=== PATIENT | male | born 1950 | race Caucasian/White ===

== ENCOUNTER → 2019-07-09 | Outpatient (CLI) | payer MEDICARE, BC ==
[~2019-07-09] MED LIST: ALBU2.5V5 NEB; ALUMINUM HYDROXIDE; ASPI-630 PO; ATOR40TA59 PO; BUDE10.2 IH; CARV25TA2 PO; DICL100G18 TP; FLUT9.9S NS; FURO40TA4 PO; GADOTERATE 7.5 MMOL/15ML VIAL. IVP ONE; HYDR-2868 PO; LOSA100T14 PO; MECL25TA3 PO; NICA30CA PO; OMEP20CA10 PO; PANT40TA6 PO; PARO40TA61 PO; POLY17PO29 PO; RIVA20TA2 PO; SCOP1PAT11 TP; SILO8CAP2 PO; SPIR50TA4 PO; TRAM50TA PO
--- NOTE | 2019-07-09 16:38 | KCIC ---
MRI Lumbar Spine without and with contrast History: Chronic low back pain, painful to walk, previous surgery Technique: Multiplanar, multi sequential pre and postcontrast MR imaging was performed of the lumbar spine. Comparison: None available Findings: There is some motion degradation. Lumbar vertebral body stature is overall maintained. There is negligible anterior spondylolisthesis L5-S1. There is fairly advanced degenerative disc disease L3-4 and L4-5, to a somewhat lesser degree at L2-3 and L5-S1, minimally L1-2. Conus terminates at L1. There is no nodular enhancement of the conus or cauda equina, no enhancement in the intervertebral disc spaces. There is mild L3-4 endplate edema greater on the right likely reactive/degenerative in etiology. T11-12: This level was not included on the axial images. There is facet degenerative change contributing to likely [id number]-cc-[id number] narrowing of the left neural foramen, minimal narrowing on the right. L1-L2: This level was not included on the axial images, neural foramina and spinal canal not significantly narrowed. L2-L3: There is minimal disc osteophyte complex and bulge. There is prominence of posterior epidural fat centrally. There is mild buckling of the ligamentum flavum and moderate facet degenerative change. Spinal canal is overall adequate. There is mild to moderate left and mild right neural foramina compromise by disc osteophyte complex and facets. L3-L4: There is prominence of posterior epidural fat centrally. There is moderate facet hypertrophic change and yukj-xe-chnauyvd buckling of the ligamentum flavum, somewhat greater on the left. There is disc osteophyte complex. There is mild to moderate narrowing of the far left lateral recess, mild attenuation of the thecal sac more centrally primarily from posterior epidural lipomatosis, minimal narrowing the far right lateral recess. There is fairly severe narrowing of left neural foramen primarily by disc osteophyte complex in combination with facet degenerative change, contact exiting left L3 nerve root extending to the proximal extraforaminal region. There is also fairly severe narrowing of the right neural foramen with contact exiting right L3 nerve root by facet and disc osteophyte complex. L4-L5: There is mild facet hypertrophic change and buckling of the ligamentum flavum. There is mild prominence of posterior epidural fat centrally. There is minimal broad disc osteophyte complex slightly indenting the ventral thecal sac without significant spinal stenosis, near descending L5 nerve roots without significant displacement. There is fairly severe right and moderate to severe left neural foramina compromise by disc osteophyte complex and common age with facet into change with contact exiting L4 nerve roots greater on the right. L5-S1: There is fairly severe right greater than left facet degenerative change. There is minimal buckling of the ligamentum flavum. There is minimal disc osteophyte complex, very shallow protrusion more eccentric to the right lateral recess and inferior right neural foramen. There is fairly severe narrowing of the right neural foramen with contact exiting right L5 nerve root, moderate to severe narrowing of the left neural foramen also with contact exiting left L5 nerve root. Impression: 1. There is degenerative disc disease greatest L3-4 and L4-5, to lesser degree at other levels. There is endplate edema at L3-4 likely reactive/degenerative in etiology. There is multilevel spondylosis. There is multilevel significant neural foramina compromise bilaterallyL3-4 through L5-S1 with contact exiting nerve roots at these levels. There is soap-rj-bchsocbf left and mild right lateral recess stenosis L3-4. 2. There is multilevel lumbar facet degenerative change, very mild grade 1 anterior spondylolisthesis at L5-S1. Electronically signed by: Steve Rangel MD (07/09/2019 4:35 PM) [id number]
== END | disposition home or self-care (01) ==
LOC: KCIC MRI 14:28
PROVIDERS: ATTEND Physician Assistant Medical
DX: M51.37 Other intervertebral disc degeneration, lumbosacral region (principal); M48.07 Spinal stenosis, lumbosacral region; M48.04 Spinal stenosis, thoracic region; M25.78 Osteophyte, vertebrae; M89.38 Hypertrophy of bone, other site; M47.817 Spondylosis without myelopathy or radiculopathy, lumbosacral region; G89.29 Other chronic pain; I10 Essential (primary) hypertension; J45.909 Unspecified asthma, uncomplicated; Z86.73 Personal history of transient ischemic attack (TIA), and cerebral infarction without residual deficits
CPT/HCPCS: 72158; 82565; A9575

== ENCOUNTER → 2019-07-19 | Outpatient (CLI) | payer MEDICARE, BC ==
[~2019-07-19] MED LIST changes: -GADOTERATE 7.5 MMOL/15ML VIAL. IVP ONE
--- NOTE | 2019-07-19 21:34 | PAIN ---
DATE OF SERVICE: 07/19/2019 INITIAL CONSULTATION FOR PAIN CLINIC CHIEF COMPLAINT: Low back and bilateral lower extremity pain. HISTORY OF PRESENT ILLNESS: This is a 68-year-old male who presents with history of pain in the low back and bilateral lower extremity for about 20 years or so, worse over the past 10 months. The patient did have a lumbar laminectomy about 20 years ago, which was helpful for several years. The pain is returning now in the low back and legs, mostly in the posterior gluteus, posterolateral thigh, lateral anterior thigh and knees as well. The patient reports it is worse with walking, standing, changing positions, better with sitting or lying down, but at night does disturb him from sleep at least 6 times. The patient reports it does affect his bowel and bladder control, but does not have any incontinence. He has some increased frequency when the pain is at its worst. The patient reports it does affect his ability to walk with significant fatigability, especially in the right leg compared to the left. The patient reports he has taking ibuprofen, which has not been decreasing the pain significantly. He has had chiropractic treatment as well as exercise and physical therapy in the past, but nothing recently. He is still doing exercises, trying to do that every day as well as walking and some trigger point injections, which none of these were helpful for very long. The patient reports no loss of motor function, but significant fatigability of the lower extremities, especially on the right leg greater than the left with ambulation. The patient rates his disability from 0-10, 10 being the worst, as 10 with family and home responsibilities, recreation and occupation; 6 with social activity, 9 with sexual behavior, 9 with life support activities and 5 with self-care activities. The patient did have MRI scan of the lumbar spine dated 07/09/2019 showing degenerative disk disease, greatest at L3-L4 and L4-L5, lesser degree at the levels with multilevel spondylosis, significant neural foraminal compromise bilaterally at L3-L4 through L5-S1 with contact at exiting nerve roots at these levels with mild to moderate left and mild right lateral recess stenosis L3-L4, multilevel lumbar facet degenerative change and anterolisthesis very mild at L5-S1. PAST MEDICAL HISTORY: Significant for hearing loss, hyperkalemia, headaches, gastroesophageal reflux, vertigo, arthritis, benign prostatic hypertrophy. PAST SURGICAL HISTORY: Include lumbar laminectomy 20 years ago, has a TURP procedure. CURRENT MEDICATIONS: Include Lipitor, Coreg, losartan, nicardipine, paroxetine, omeprazole, pantoprazole, Aldactone, carvedilol, losartan, Symbicort inhaler, aluminum hydroxide and Xarelto. ALLERGIES: THE PATIENT HAS NO KNOWN DRUG ALLERGIES, BUT HE DOES HAVE A LATEX ALLERGY. FAMILY HISTORY: Significant for no major medical problems or conditions he is aware of. SOCIAL HISTORY: The patient does not drink alcohol, does not smoke. Denies any illegal, illicit or recreational drugs. The patient is and lives with his spouse, lives locally in [place], [place]. Reports he is currently retired. REVIEW OF SYSTEMS: The patient's review of systems is positive for those items mentioned in history of present illness. All systems reviewed and otherwise negative. It is complete, full and well documented on the patient's chart. PHYSICAL EXAMINATION: VITAL SIGNS: The patient's blood pressure is 137/73, pulse 67, respirations 16, temperature 97.9 degrees Fahrenheit, height 6 feet, weight is 291 pounds. GENERAL: The patient is awake, alert, oriented, appropriate, very pleasant demeanor. HEENT: Shows normocephalic, atraumatic. Extraocular movements are intact and symmetrical. Oral cavity: Mucous membranes moist and pink. Dentition is intact. NECK: Shows anterior throat supple without palpable lymphadenopathy noted. Swallow reflex symmetrical. CHEST: Shows normal on inspection. Breath sounds are clear to auscultation bilaterally. HEART: Shows S1, S2 clear. No murmurs auscultated. ABDOMEN: Soft, nontender, nondistended, obese. No palpable organomegaly is noted. No rebound or guarding demonstrated. BACK: Shows spine grossly midline, normal-appearing thoracic kyphosis and minor flattening of lumbar lordotic curvature. Lumbar paraspinous muscle shows symmetrical on inspection, with palpation shows some moderate tenderness diffusely bilaterally, but only diffusely without significant radiation. The patient shows good rotational motion of lumbar spine, both laterally greater than 10 degrees right and left as well as extension greater than 10 degrees, forward flexion 45 degrees without significant pain reported. EXTREMITIES: Lower extremities show deep tendon reflexes 1+ in the patellar and tendo calcaneus tendons. Motor exam is strong with 5/5 dorsiflexion, extension, quadriceps and hamstring flexion and symmetrical. Peripheral pulses are 1+ posterior tibia. No peripheral edema is noted bilaterally. Gaenslen's and Rahat's maneuvers are negative bilaterally. Straight leg raise noted to be negative bilaterally as well. The patient is able to stand, stand on his toes without difficulty or loss of balance, walks with a slight shuffling gait, does not appear to favor the right or left lower extremity significantly; however, not using any assistive devices to ambulate. SKIN: Shows warm and dry, good turgor. No edema. No sores, rashes or bruising. IMPRESSION: 1. This is a 68-year-old male with long history of low back pain, worse over the past 10-11 months in the low back and bilateral lower extremities. 2. MRI scan of lumbar spine as noted. 3. Hypertension. 4. Arthritis. PLAN: Options were discussed with the patient including conservative medical managements, physical therapies and interventional techniques and he would like to pursue interventional techniques. We discussed a lumbar epidural steroid injection using description as well as anatomical models to describe the procedure. We first check with his prescribing practitioner for clearance to hold his Xarelto for 3 days prior to potential lumbar epidural steroid injection. The patient will keep taking the medication until we hear back from his primary care provider, and if deemed safe to hold the Xarelto, we will have him do that to return for lumbar epidural steroid injection. BIANCA DOAN MD DR: MARITA/cristian JOB#: [id number] / [id number] ROBBY Sainz
== END | disposition home or self-care (01) ==
LOC: PNCL 07:53 → EDUNIT# 08:20
PROVIDERS: ATTEND Anesthesiology
DX: M54.5 Low back pain (principal); M79.605 Pain in left leg; M79.604 Pain in right leg; H91.90 Unspecified hearing loss, unspecified ear; E87.5 Hyperkalemia; K21.9 Gastro-esophageal reflux disease without esophagitis; M19.90 Unspecified osteoarthritis, unspecified site; N40.0 Benign prostatic hyperplasia without lower urinary tract symptoms; Z90.89 Acquired absence of other organs; Z79.899 Other long term (current) drug therapy; Z79.891 Long term (current) use of opiate analgesic; Z79.1 Long term (current) use of non-steroidal anti-inflammatories (NSAID); Z91.040 Latex allergy status
CPT/HCPCS: G0463

== ENCOUNTER → 2019-08-01 | Outpatient (CLI) | payer MEDICARE, BC ==
[~2019-08-01] MED LIST changes: +IOHEXOL 180 MG/ML 10 ML VIAL. ONE; +methylPREDNISolone ACETATE 40 MG/ML VIAL. ONE; +methylPREDNISolone ACETATE 80 MG/ML VIAL. ONE
--- NOTE | 2019-08-01 08:53 | PAIN ---
DATE OF SERVICE: 08/01/2019 PROGRESS NOTE FOR PAIN CLINIC DIAGNOSES: Lumbar radiculopathy with lumbar degenerative disk disease and lumbar spinal stenosis and post-lumbar laminectomy syndrome. HISTORY OF PRESENT ILLNESS: The patient is a 68-year-old male who returns for followup status post initial evaluation and clearance to hold his Eliquis. He has been off his Xarelto now for 3 days, returns reporting still significant pain in the low back, bilateral lower extremities, posterior gluteus, posterolateral thigh, lateral anterior thigh, medial thigh. The patient reports the pain is aching, dull, sharp, tight, cramping and spasms on and off in intensity, rated as 6 on a scale of 10 at its worst, 6 on average and a 3 at its least and is a 6 today. The patient reports no new motor or sensory deficits, no new bowel or bladder incontinence, still wakes him from sleep at night about every 3 hours. The patient reports no new changes or other deficits. PHYSICAL EXAMINATION: VITAL SIGNS: The patient's blood pressure is 106/54, pulse 68, respirations 18, temperature 97.7 degrees Fahrenheit, height 6 feet, weight is 279 pounds. GENERAL: The patient is awake, alert, oriented, appropriate, very pleasant demeanor. HEENT: Shows normocephalic, atraumatic. Extraocular movements are intact and symmetrical. Oral cavity: Mucous membranes moist and pink. Dentition is intact. NECK: Shows anterior throat supple without palpable lymphadenopathy noted. Swallow reflex symmetrical. CHEST: Shows normal on inspection. Breath sounds clear to auscultation bilaterally. HEART: Shows S1, S2 clear. No murmurs auscultated. ABDOMEN: Soft, nontender, nondistended. No palpable organomegaly is noted. No rebound or guarding demonstrated. BACK: Shows spine grossly in the midline. Normal appearing thoracic kyphosis and lumbar lordotic curvature. Lumbar paraspinous muscle shows symmetrical on inspection, on palpation shows some moderate tenderness diffusely bilaterally going diffusely without radiation. The patient shows good rotational motion of lumbar spine, both laterally as well as extension and flexion without difficulty. EXTREMITIES: The patient's lower extremities show deep tendon reflexes 1+ in the patellar and tendo calcaneus tendons. Motor exam is 5/5 with dorsiflexion, extension, quadriceps and hamstring flexion symmetrical. Peripheral pulses are 1+ posterior tibial. No peripheral edema is noted bilaterally. Options were discussed with the patient. The patient's old chart was reviewed as his current medication regimen updated. Current review of systems updated today as well and we will proceed with a lumbar epidural steroid injection today with fluoroscopic guidance. Risks were again discussed including, but not limited to bleeding, infection, possibility of epidural hematoma, subsequent neurologic compromise, dural puncture, headaches, spinal cord and/or nerve damage, side effects of steroid medication and poor results regarding pain control. The patient understands and wished to proceed. The patient will return to clinic in approximately 2 weeks for followup. He was counseled on return appointment, activity level and side effects to be aware of. DIAGNOSES: Lumbar radiculopathy with lumbar degenerative disk disease and lumbar spinal stenosis with post-lumbar laminectomy syndrome. PROCEDURE: Lumbar epidural steroid injection, translaminar approach L4-L5 level using C-arm fluoroscopic guidance under sterile prep and drape using local anesthetic. MEDICATION INJECTED: The patient received a total of 120 mg Depo-Medrol plus 10 mL of preservative-free normal saline and 2 mL of contrast. CONDITION AT DISCHARGE: Stable. The patient tolerated procedure well, had no complications. BIANCA DOAN MD DR: MARITA/cristian JOB#: [id number] / [id number]
== END ==
LOC: PNCL 07:47
PROVIDERS: ATTEND Anesthesiology
DX: M51.16 Intervertebral disc disorders with radiculopathy, lumbar region (principal); M48.061 Spinal stenosis, lumbar region without neurogenic claudication; M96.1 Postlaminectomy syndrome, not elsewhere classified
CPT/HCPCS: 62323; J1030; J1040; Q9965

== ENCOUNTER → 2019-09-19 | Outpatient (CLI) | payer MEDICARE, BC ==
[~2019-09-19] MED LIST changes: -IOHEXOL 180 MG/ML 10 ML VIAL. ONE; -methylPREDNISolone ACETATE 40 MG/ML VIAL. ONE; -methylPREDNISolone ACETATE 80 MG/ML VIAL. ONE
--- NOTE | 2019-09-19 12:11 | PAIN ---
DATE OF SERVICE: 09/19/2019 PROGRESS NOTE FOR PAIN MANAGEMENT DIAGNOSIS: Lumbar radiculopathy with lumbar degenerative disk disease, lumbar stenosis and post-lumbar laminectomy syndrome. HISTORY OF PRESENT ILLNESS: The patient is a 69-year-old male who returns for followup status post lumbar epidural steroid injection x 1. The patient reports about 80% improvement for about 3 weeks after the first injection with pain in the low back and the bilateral lower extremities. The patient reports it is mainly in the low back, now legs are doing much better. He is increasing his activity with greater distance walking, doing work activities, household activities, traveling with greater ease and comfort. Pain is beginning to return, however, in low back itself. The patient reports no new motor or sensory deficits, no new bowel or bladder incontinence. Describes the pain as a radiating pain is becoming more constant in the back, aching and tight, rates it 10 on a scale of 10 at its worst over the past week, 8 on average, 4 at its least and is an 8 today. The patient reports no new motor or sensory deficits. No bowel or bladder incontinence. It does awake him from sleep, but only about once every 7 hours only over the past few days. The patient has been maintained on his Xarelto; however, is not held prior to today's visit. PHYSICAL EXAMINATION: VITAL SIGNS: The patient's blood pressure 148/67, pulse 71, respirations 18, temperature 98.3 degrees Fahrenheit, height 6 feet, weight is 288 pounds. GENERAL: The patient is awake, alert, oriented, appropriate, very pleasant demeanor. HEENT: Shows normocephalic, atraumatic. Extraocular movements are intact and symmetrical. Oral cavity: Mucous membranes moist and pink. Dentition is intact. NECK: Shows anterior throat supple without palpable lymphadenopathy noted. Swallow reflex symmetrical. CHEST: Shows normal on inspection. Breath sounds are clear bilaterally. HEART: Shows S1, S2 clear. ABDOMEN: Obese, soft, nontender, nondistended. BACK: Shows spine grossly in the midline. Normal appearing thoracic kyphosis and lumbar lordotic curvature. Lumbar paraspinous muscle shows symmetrical on inspection, with palpation shows some mild tenderness diffusely in the low lumbar distribution, more on the right than the left, but without radiation. The patient has good rotational motion of lumbar spine, both laterally as well as extension and flexion without difficulty. EXTREMITIES: Lower extremities show deep tendon reflexes 1+ in patellar and tendo calcaneus tendons. Motor exam is strong with 5/5 dorsiflexion, extension, quadriceps and hamstring flexion and symmetrical. Peripheral pulses are 1+ posterior tibia. No peripheral edema is noted. Options were discussed with the patient. The patient's old chart was reviewed as his current medication regimen updated. Current review of systems updated today as well. We will have him hold his Xarelto as he has been cleared previously by his nondestructive tester for 3 days and return for lumbar epidural steroid injection #2 at that time. The patient will maintain with stretching and strength exercises in the meantime and will follow up as scheduled. BIANCA DOAN MD DR: MARITA/nts JOB#: [id number] / [id number]
== END | disposition home or self-care (01) ==
LOC: PNCL 09:33
PROVIDERS: ATTEND Anesthesiology
DX: M51.16 Intervertebral disc disorders with radiculopathy, lumbar region (principal); M48.061 Spinal stenosis, lumbar region without neurogenic claudication; M96.1 Postlaminectomy syndrome, not elsewhere classified
CPT/HCPCS: G0463

== ENCOUNTER → 2019-09-23 | Outpatient (CLI) | payer MEDICARE, BC ==
[~2019-09-23] MED LIST changes: +IOHEXOL 180 MG/ML 10 ML VIAL. ONE; +methylPREDNISolone ACETATE 40 MG/ML VIAL. ONE; +methylPREDNISolone ACETATE 80 MG/ML VIAL. ONE
--- NOTE | 2019-09-23 12:29 | PAIN ---
DATE OF SERVICE: 09/23/2019 PROGRESS NOTE FOR PAIN CLINIC DIAGNOSES: Lumbar radiculopathy with lumbar degenerative disk disease, lumbar spinal stenosis and lumbar post-laminectomy syndrome. HISTORY OF PRESENT ILLNESS: The patient is a 69-year-old male who returns for followup status post lumbar epidural steroid injection x 1. The patient has held his Xarelto now for the past 3 days. Reports still significant pain in the low back and into the bilateral lower extremities as it was previously. The patient reports it is a 9 on a scale of 10 at its worst over the past week, 6 on average, 2 at its least and is a 6 today. The patient reports it is burning, cramping, stabbing, tingling in the legs, aching in the back and tight in the back, constant, severe at times, on and off in intensity. The patient reports initially he was doing better with distance walking, doing household activities with greater ease and comfort, now the pain is returning. It awakens him from sleep occasionally at night, but not more frequently in every 6-7 hours. The patient reports no new motor or sensory deficits, no new bowel or bladder incontinence or other complaints. PHYSICAL EXAMINATION: VITAL SIGNS: The patient's blood pressure 142/95, pulse 79, respirations 16, temperature 98.2 degrees Fahrenheit. GENERAL: The patient is awake, alert, oriented, appropriate, very pleasant demeanor. HEENT: Shows normocephalic, atraumatic. Extraocular movements are intact and symmetrical. The patient is wearing eyeglasses. Oral cavity: Mucous membranes moist and pink. NECK: Shows anterior throat supple. CHEST: Shows normal on inspection. Breath sounds clear bilaterally. ABDOMEN: Soft, nontender, nondistended. HEART: Shows S1, S2 clear. BACK: Shows spine grossly in the midline. Well-healed surgical scar in the lumbar distribution. Lumbar paraspinous muscle shows symmetrical on inspection, with palpation shows some moderate tenderness diffusely bilaterally in the lower lumbar distribution only. EXTREMITIES: The patient's lower extremities show deep tendon reflexes 1+/4 in the patellar tendons. Motor exam is strong with 5/5 dorsiflexion, extension, quadriceps and hamstring flexion and symmetrical. Peripheral pulses are 1+ posterior tibia. No peripheral edema is noted bilaterally. Options were discussed with the patient. The patient's old chart was reviewed as his current medication regimen updated. Current review of systems updated today as well and we will proceed with second lumbar epidural steroid injection today with fluoroscopic guidance. Risks were again discussed including, but not limited to bleeding, infection, possibility of epidural hematoma, subsequent neurological compromise, dural puncture, headaches, spinal cord and/or nerve damage, side effects of steroid medication and poor results regarding pain control. The patient understands and wished to proceed. The patient will return to clinic in approximately 2 weeks for followup. He was counseled on return appointment, activity level and side effects to be aware of. DIAGNOSES: Lumbar radiculopathy with lumbar degenerative disk disease and lumbar spinal stenosis and post-lumbar laminectomy syndrome. PROCEDURE: Lumbar epidural steroid injection, translaminar approach at the L4-L5 level using C-arm fluoroscopic guidance under sterile prep and drape using local anesthetic. MEDICATION INJECTED: A total of 120 mg Depo-Medrol plus 10 mL of preservative-free normal saline and 2 mL of contrast. CONDITION AT DISCHARGE: Stable. The patient tolerated procedure well, had no complications. BIANCA DOAN MD DR: MARITA/cristian JOB#: [id number] / [id number]
== END ==
LOC: PNCL 09:38
PROVIDERS: ATTEND Anesthesiology
DX: M51.16 Intervertebral disc disorders with radiculopathy, lumbar region (principal); M48.061 Spinal stenosis, lumbar region without neurogenic claudication; M96.1 Postlaminectomy syndrome, not elsewhere classified
CPT/HCPCS: 62323; J1030; J1040; Q9965

== ENCOUNTER → 2019-10-14 | Outpatient (CLI) | payer MEDICARE, BC ==
[~2019-10-14] MED LIST changes: +OMEP-229 PO; -OMEP20CA10 PO
--- NOTE | 2019-10-14 10:45 | PAIN ---
DATE OF SERVICE: 10/14/2019 PROGRESS NOTE FOR PAIN CLINIC DIAGNOSES: Lumbar radiculopathy with lumbar degenerative disk disease, lumbar spinal stenosis and post-lumbar laminectomy syndrome. HISTORY OF PRESENT ILLNESS: The patient is a 69-year-old male who returns for followup status post lumbar epidural steroid injection x 2. The patient has been off his Xarelto now for 3 days. The patient reports still significant pain in the low back, but doing much better after the last injection about 30% overall from his injection on 09/23/2019. The patient reports the pain is somewhat returning, but still fairly well controlled. The patient reports no new motor or sensory deficits, no new bowel or bladder incontinence or other complaints. It is waking him from sleep again about every 5-6 hours. Initially, he was doing much better with walking, sleeping, work activities, household activities, traveling with greater ease and comfort. The patient rates the pain as a 9 on a scale of 10 at its worst, is a 5 on average, 2 at its least and is a 5 today. The patient reports it is tingling, cramping, aching, dull and tight in the low back, on and off in intensity, mainly staying in the back now without as much radiation to the lower extremities. PHYSICAL EXAMINATION: VITAL SIGNS: The patient's blood pressure is 173/100, pulse 76, respirations 16, temperature 98.1 degrees Fahrenheit, height 6 feet, weight is 285 pounds. GENERAL: The patient is awake, alert, oriented, appropriate, very pleasant demeanor. HEENT: Shows normocephalic, atraumatic. Extraocular movements are intact and symmetrical. Oral cavity: Mucous membranes moist and pink. Dentition is intact. NECK: Shows anterior throat supple without palpable lymphadenopathy noted. Swallow reflex symmetrical. CHEST: Shows normal on inspection. Breath sounds clear bilaterally. HEART: Shows S1, S2 clear. No murmurs auscultated. ABDOMEN: Obese, soft, nontender, nondistended. No palpable organomegaly is noted. BACK: Shows spine grossly in the midline. Lumbar paraspinous muscle shows symmetrical on inspection, also with well-healed surgical scar. Palpation shows some moderate tenderness diffusely in the middle and lower distribution of paraspinous muscles, but only diffusely without radiation. EXTREMITIES: Lower extremities show deep tendon reflexes at 1+ in the patellar and tendo-calcaneus tendons. Motor exam remains strong with 5/5 dorsiflexion, extension, quadriceps and hamstring flexion and are symmetrical. Peripheral pulses are 1+ in the posterior tibia. No peripheral edema is noted bilaterally. Options were discussed with the patient. The patient's old chart was reviewed as his current medication regimen updated. Current review of systems updated today as well. We will proceed with a third in the series of lumbar epidural steroid injection today with fluoroscopic guidance. Risks were again discussed including, but not limited to bleeding, infection, possibility of epidural hematoma, subsequent neurological compromise, dural puncture, headaches, spinal cord and/or nerve damage, side effects of steroid medication and poor results regarding pain control. The patient understands and wished to proceed. The patient will return to clinic in approximately 2 weeks for followup. He was counseled as to return appointment, activity level and side effects to be aware of. DIAGNOSES: Lumbar radiculopathy with lumbar degenerative disk disease, lumbar spinal stenosis and lumbar post-laminectomy syndrome. PROCEDURE: Lumbar epidural steroid injection, translaminar approach at L4-L5 level using C-arm fluoroscopic guidance under sterile prep and drape using local anesthetic. MEDICATION INJECTED: A total of 120 mg Depo-Medrol plus 10 mL of preservative-free normal saline and 2 mL of contrast. CONDITION AT DISCHARGE: Stable. The patient tolerated the procedure well, had no complications. BIANCA DOAN MD DR: MARITA/cristian JOB#: [id number] / [id number]
== END ==
LOC: PNCL 09:56
PROVIDERS: ATTEND Anesthesiology
DX: M51.16 Intervertebral disc disorders with radiculopathy, lumbar region (principal); M48.061 Spinal stenosis, lumbar region without neurogenic claudication; M96.1 Postlaminectomy syndrome, not elsewhere classified
CPT/HCPCS: 62323; J1030; J1040; Q9965

== ENCOUNTER → 2020-03-03 | Outpatient (CLI) | payer MEDICARE, BC ==
[~2020-03-03] MED LIST changes: -DICL100G18 TP; +DICL100G54 TP; -IOHEXOL 180 MG/ML 10 ML VIAL. ONE; +MECL-75 PO; -MECL25TA3 PO; -OMEP-229 PO; +OMEP20CA16 PO; -methylPREDNISolone ACETATE 40 MG/ML VIAL. ONE; -methylPREDNISolone ACETATE 80 MG/ML VIAL. ONE
--- NOTE | 2020-03-03 08:38 | PAIN ---
DATE OF SERVICE: 03/03/2020 PROGRESS NOTE FOR PAIN CLINIC DIAGNOSES: Lumbar radiculopathy with lumbar degenerative disk disease, lumbar spinal stenosis and lumbar post-laminectomy syndrome. HISTORY OF PRESENT ILLNESS: The patient is a 69-year-old male who returns for followup status post lumbar epidural steroid injection x 3. The patient did well, last seen 10/14/2019 with about 80% improvement overall. The patient reports he is still doing fairly well, but the pain is returning now in the low back and bilateral lower extremities, mostly in the posterior gluteus, posterior thighs, posterior calves, lateral thighs, medial thighs especially and across the low back. The patient reports it is sharp and shooting, stabbing, radiating in the lower extremities, on and off in intensity, worse with walking and standing, better with sitting, generally does not awaken him from sleep at night. The patient reports he was increasing distance walking, doing working activities, household activities with much greater ease and comfort for good 3 months after the last injection, the pain now returning in the low back and legs. The patient reports the pain is a 9 on a scale of 10 at all times over the past week average, worst and least and is a 9 today. PHYSICAL EXAMINATION: VITAL SIGNS: The patient's blood pressure is 155/86, pulse 81, respirations 18, temperature is 98.2 degrees Fahrenheit. Height is 6 feet 1 inch. Weight is 283 pounds. GENERAL: The patient is awake, alert, oriented, appropriate, very pleasant demeanor. HEENT: Shows normocephalic, atraumatic. Extraocular movements are intact and symmetrical. The patient wears eyeglasses. Oral cavity shows mucous membranes moist and pink. Dentition is intact. NECK: Shows anterior throat supple without palpable lymphadenopathy noted. Swallow reflex symmetrical. CHEST: Shows normal on inspection. Breath sounds are clear bilaterally. HEART: Shows S1 and S2 clear. No murmurs auscultated. ABDOMEN: Soft, nontender, nondistended. BACK: Shows spine grossly in midline. Normal appearing thoracic kyphosis and lumbar lordotic curvature. Lumbar paraspinous muscle shows symmetrical on inspection, on palpation shows some moderate tenderness diffusely bilaterally, but only diffusely without significant radiation. The patient has good rotational motion of the lumbar spine, both laterally as well as extension and flexion without difficulty. EXTREMITIES: Lower extremities showed deep tendon reflexes at 1+ in the patellar and tendo calcaneus tendons. Motor exam is strong with 5/5 dorsiflexion, extension, quadriceps and hamstring flexion symmetrical. Peripheral pulses are 1+ to posterior tibia. No peripheral edema is noted bilaterally. Options were discussed with the patient. The patient's old chart was reviewed as his current medication regimen updated. Current review of systems updated today as well and we will proceed with holding his Xarelto for 3 days prior to lumbar epidural steroid injection. The patient has had clearance previously to hold this from his primary physician and we will have him hold this once again for 3 days. Return after that time for a lumbar epidural steroid injection. In the meantime, the patient will continue with stretching and strengthening exercises, activity, walking and exercises and stretching as well as tolerated. BIANCA DOAN MD DR: MARITA/cristian JOB#: [id number] / [id number]
== END | disposition home or self-care (01) ==
LOC: PNCL 07:55
PROVIDERS: ATTEND Anesthesiology
DX: M51.16 Intervertebral disc disorders with radiculopathy, lumbar region (principal); M48.061 Spinal stenosis, lumbar region without neurogenic claudication; M96.1 Postlaminectomy syndrome, not elsewhere classified
CPT/HCPCS: G0463

== ENCOUNTER → 2020-03-06 | Outpatient (CLI) | payer MEDICARE, BC ==
[~2020-03-06] MED LIST changes: +IOHEXOL 180 MG/ML 10 ML VIAL. ONE; +methylPREDNISolone ACETATE 40 MG/ML VIAL. ONE; +methylPREDNISolone ACETATE 80 MG/ML VIAL. ONE
--- NOTE | 2020-03-06 08:48 | PAIN ---
DATE OF SERVICE: 03/06/2020 PROGRESS NOTE FOR PAIN CLINIC DIAGNOSES: Lumbar radiculopathy with lumbar degenerative disk disease, lumbar spinal stenosis and lumbar post-laminectomy syndrome. HISTORY OF PRESENT ILLNESS: The patient is a 69-year-old male who returns for followup status post evaluation and holding his Xarelto. The patient has been off this for 3 days now and would like to proceed with a lumbar epidural steroid injection. The patient reports still significant pain in the low back, bilateral lower extremities, mostly in the posterior lateral gluteus, lateral thigh, anterior thigh, medial thighs, worse with walking, standing, changing positions. The patient reports it is across the low back as well, radiating, becoming more severe with time and activity, better with sitting or lying down, generally does not awaken his from sleep at night. The patient reports it is sharp and tight in the low back radiating and shooting into the lower extremities with a stabbing quality. The patient reports it is a 9 on a scale of 10 at all times, worst, least and average over the past week and is a 9 today. The patient reports no new motor or sensory deficits, no new bowel or bladder incontinence. He is off his Xarelto now for 3 days. PHYSICAL EXAMINATION: VITAL SIGNS: The patient's blood pressure 155/87, pulse 71, respirations 18, temperature 98.5 degrees Fahrenheit, height is 6 feet, weight is 283 pounds. GENERAL: The patient is awake, alert, oriented, appropriate, very pleasant demeanor. HEENT: Shows normocephalic, atraumatic. Extraocular movements are intact and symmetrical. Oral cavity: Mucous membranes moist and pink. Dentition is intact. CHEST: Shows normal on inspection. Breath sounds clear to auscultation bilaterally. HEART: Shows S1, S2 clear. No murmurs auscultated. ABDOMEN: Obese, soft, nontender, nondistended. BACK: Shows spine grossly in midline. Lumbar paraspinous muscle shows symmetrical on inspection, with palpation shows some moderate tenderness diffusely in the middle and lower distribution of paraspinous muscles without radiation. The patient has good rotational motion of lumbar spine, both laterally as well as extension and flexion. EXTREMITIES: Lower extremities show deep tendon reflexes 1+ in the patellar and tendo calcaneus tendons. Motor exam is strong with 5/5 dorsiflexion, extension, quadriceps and hamstring flexion. Options were discussed with the patient. The patient's old chart was reviewed as his current medication regimen updated. Current review of systems updated today as well. We will proceed with a lumbar epidural steroid injection today with fluoroscopic guidance. Risks were again discussed including, but not limited to bleeding, infection, possibility of epidural hematoma, subsequent neurological compromise, dural puncture, headaches, spinal cord and/or nerve damage, side effects of steroid medication and poor results regarding pain control. The patient understands and wished to proceed. The patient will return to clinic in approximately 3 weeks for followup. He was counseled on return appointment, activity level and side effects to be aware of. The patient will restart his Xarelto tomorrow as instructed and the patient will return to clinic as scheduled. DIAGNOSES: Lumbar radiculopathy with lumbar degenerative disk disease, lumbar spinal stenosis and lumbar post-laminectomy syndrome. PROCEDURE: Lumbar epidural steroid injection, translaminar approach at the L4-L5 level using C-arm fluoroscopic guidance under sterile prep and drape using local anesthetic. MEDICATION INJECTED: A total of 120 mg Depo-Medrol plus 10 mL of preservative-free normal saline and 2 mL of contrast. CONDITION AT DISCHARGE: Stable. The patient tolerated the procedure well, had no complications. BIANCA DOAN MD DR: MARITA/cristian JOB#: [id number] / [id number]
== END | disposition home or self-care (01) ==
LOC: PNCL 07:34
PROVIDERS: ATTEND Anesthesiology
DX: M51.16 Intervertebral disc disorders with radiculopathy, lumbar region (principal); M48.061 Spinal stenosis, lumbar region without neurogenic claudication; M96.1 Postlaminectomy syndrome, not elsewhere classified; Z98.890 Other specified postprocedural states
CPT/HCPCS: 62323; J1030; J1040; Q9965

== ENCOUNTER → 2020-04-10 | Outpatient (CLI) | payer MEDICARE, BC ==
--- NOTE | 2020-04-10 11:54 | PAIN ---
DATE OF SERVICE: 04/10/2020 PROGRESS NOTE FOR PAIN CLINIC DIAGNOSES: Lumbar radiculopathy with lumbar degenerative disk disease, lumbar spinal stenosis and lumbar post-laminectomy syndrome. HISTORY OF PRESENT ILLNESS: The patient is a 69-year-old male who returns for followup status post lumbar epidural steroid injection x 1 on 03/06/2020, patient did very well with about a 70% improvement in the low back and bilateral lower extremity pain. The patient reports the pain is pretty much gone out of his legs now, but his back is still significantly painful, more on the right than the left, but present bilaterally across the low back, worse with activity, standing, walking, bending, initially was doing much better with doing walking distances, doing household activities, traveling with greater ease and comfort, sleeping better at night. The patient reports it still does not awaken him from sleep at night. The patient rates his pain over the past week is an 8 on a scale of 10 at its worst, 4 on average, 3 at its least and is a 4 today. The patient reports it is tingling and stabbing in the back, sharp and dull, sometimes shooting in the legs, but across the back mostly. The patient reports no new motor or sensory deficits, no bowel or bladder incontinence or other complaints. PHYSICAL EXAMINATION: VITAL SIGNS: The patient's blood pressure is 161/99, pulse 75, respirations 18, temperature 95.2 degrees Fahrenheit, height 6 feet, weight is 275 pounds. GENERAL: The patient is awake, alert, oriented, appropriate, very pleasant demeanor. HEENT: Shows normocephalic, atraumatic. Extraocular movements are intact and symmetrical. Oral cavity: Mucous membranes moist and pink. Dentition is intact. NECK: Shows anterior throat supple without palpable lymphadenopathy noted. Swallow reflex symmetrical. CHEST: Shows normal on inspection. Breath sounds are clear bilaterally. HEART: Shows S1, S2 clear. No murmurs auscultated. ABDOMEN: Soft, nontender, nondistended, obese. No palpable organomegaly is noted. BACK: Shows normal-appearing cervical lordotic curvature, slight increase in thoracic kyphosis and minor flattening of lumbar lordotic curvature. Lumbar paraspinous muscle shows symmetrical on inspection, on palpation shows some moderate tenderness diffusely bilaterally, but only diffusely without significant radiation throughout the upper, middle and lower distribution of paraspinous muscles. The patient has good rotational motion of lumbar spine, both laterally as well as extension and flexion without significant difficulty. EXTREMITIES: Lower extremities show deep tendon reflexes at 1+ in the patellar and tendo calcaneus tendons. Motor exam is strong with 5/5 dorsiflexion, extension, quadriceps and hamstring flexion symmetrical. Peripheral pulses are 1+ bilaterally. Options were discussed with the patient. The patient's old chart was reviewed as his current medication regimen updated. Current review of systems updated today as well. We will proceed with a second in a series of lumbar epidural steroid injection today with fluoroscopic guidance. Risks were again discussed including, but not limited to bleeding, infection, possibility of epidural hematoma, subsequent neurological compromise, dural puncture, headaches, spinal cord and/or nerve damage, side effects of steroid medication and poor results regarding pain control. The patient understands and wished to proceed. The patient will return to clinic in approximately 2 weeks for followup. He was counseled on return appointment, activity level and side effects to be aware of. DIAGNOSES: Lumbar radiculopathy with lumbar degenerative disk disease, lumbar spinal stenosis. PROCEDURE: Lumbar epidural steroid injection, translaminar approach L4-L5 level using C-arm fluoroscopic guidance under sterile prep and drape using local anesthetic. MEDICATION INJECTED: A total of 120 mg Depo-Medrol plus 10 mL preservative-free normal saline and 2 mL of contrast. CONDITION AT DISCHARGE: Stable. The patient tolerated the procedure well, had no complications. BIANCA DOAN MD DR: MARITA/cristian JOB#: [id number] / [id number]
== END ==
LOC: PNCL 07:56
PROVIDERS: ATTEND Anesthesiology
DX: M51.16 Intervertebral disc disorders with radiculopathy, lumbar region (principal); M48.061 Spinal stenosis, lumbar region without neurogenic claudication; M96.1 Postlaminectomy syndrome, not elsewhere classified
CPT/HCPCS: 62323; J1030; J1040; Q9965

== ENCOUNTER → 2020-05-04 | Outpatient (CLI) | payer MEDICARE, BC ==
--- NOTE | 2020-05-04 10:12 | PAIN ---
DATE OF SERVICE: 05/04/2020 PROGRESS NOTE FOR PAIN CLINIC DIAGNOSES: Lumbar radiculopathy with lumbar degenerative disk disease, lumbar spinal stenosis, and lumbar post-laminectomy syndrome. HISTORY OF PRESENT ILLNESS: The patient is a 69-year-old male who returns for followup status post lumbar epidural steroid injections x 2. The patient reports about 70% improvement, currently still unimproved. The patient reports his pain can be as high as a 9 on a scale of 10 at its worst over the past week, average is a 4 and at its least is a 4, it is a 4 today. The patient reports tingling and stabbing in the low back with some sharp pain also alternating with tight shooting pain radiating to the lower extremities, worse in the back itself. The patient reports no new motor or sensory deficits, no new bowel or bladder incontinence. Reports it generally does not awaken him from sleep at night, increases activity with greater distance walking with greater ease and comfort and is pleased with this. The patient reports the shot seem to be lasting longer on this series than previously. The patient reports no new motor or sensory deficits, no bowel or bladder incontinence or other complaints. PHYSICAL EXAMINATION: VITAL SIGNS: The patient's blood pressure 167/92, pulse 78, respirations 18, temperature 97.3 degrees Fahrenheit, height 6 feet, and weight is 276 pounds. GENERAL: The patient is awake, alert, oriented, appropriate, very pleasant demeanor. HEENT: Shows normocephalic, atraumatic. Extraocular movements are intact and symmetrical. Oral cavity: Mucous membranes moist and pink. Dentition is intact. NECK: Shows anterior throat supple without palpable lymphadenopathy noted. Swallow reflex symmetrical. CHEST: Shows normal on inspection. Breath sounds are clear bilaterally. HEART: Shows S1, S2 clear. No murmurs auscultated. ABDOMEN: Soft, nontender, nondistended. BACK: Shows spine grossly in the midline, slight exaggerated thoracic kyphosis and minor flattening of lumbar lordotic curvature with well-healed surgical scar noted. Lumbar paraspinous muscle shows symmetrical on inspection, with palpation shows some moderate tenderness diffusely, but only in the low lumbar distribution bilaterally without significant radiation, more on the right than the left. EXTREMITIES: Lower extremities show deep tendon reflexes 1+ in the patellar and tendo calcaneus tendons. Motor exam approximately 5/5 with dorsiflexion, extension, quadriceps and hamstring flexion symmetrical. Peripheral pulses are 1+. No peripheral edema bilaterally. Options were discussed with the patient. The patient's old chart was reviewed as his current medication regimen updated. Current review of systems updated today as well. We will proceed with a lumbar epidural steroid injection today, third in the series with fluoroscopic guidance. Risks were again discussed including, but not limited to bleeding, infection, possibility of epidural hematoma, subsequent neurological compromise, dural puncture, headaches, spinal cord and/or nerve damage, side effects of steroid medication and poor results regarding pain control. The patient understands and wished to proceed. The patient will return to clinic in approximately 2 weeks for followup. She was counseled on return appointment, activity level, and side effects to be aware of. DIAGNOSES: Lumbar radiculopathy with lumbar degenerative disk disease, lumbar spinal stenosis, and lumbar post-laminectomy syndrome. PROCEDURE: Lumbar epidural steroid injection, translaminar approach at the L4-5 level using C-arm fluoroscopic guidance under sterile prep and drape using local anesthetic. MEDICATION INJECTED: A total of 120 mg Depo-Medrol plus 10 mL of preservative-free normal saline and 2 mL of contrast. CONDITION AT DISCHARGE: Stable. The patient tolerated procedure well, had no complications. BIANCA DOAN MD DR: MARITA/cristian JOB#: [id number] / [id number]
== END ==
LOC: PNCL 08:27
PROVIDERS: ATTEND Anesthesiology
DX: M51.16 Intervertebral disc disorders with radiculopathy, lumbar region (principal); M48.061 Spinal stenosis, lumbar region without neurogenic claudication; M96.1 Postlaminectomy syndrome, not elsewhere classified
CPT/HCPCS: 62323; J1030; J1040; Q9965

== ENCOUNTER → 2020-07-24 | Outpatient (CLI) | payer MEDICARE, BC ==
[~2020-07-24] MED LIST changes: +BUPIVACAINE MPF 0.25% 10 ML VIAL. ONE
--- NOTE | 2020-07-24 09:03 | PDOC ---
Progress Note - Pain Clinic Date of Service: DOS: DATE: 07/24/20 TIME: 08:58 Diagnosis: Dx: Lumbar radiculopathy with lumbar degenerative disc disease lumbar spinal stenosis and spondylosis Bilateral knee joint pain with osteoarthritis History or Present Illness: HPI: 69-year-old male returns follow-up status post lumbar epidural steroid injections x3 last seen May 04, 2020 patient ports doing very well about 80% improvement after the last injection his low back pain his chief complaint today however is bilateral knee pain patient has had osteoarthritis in the knees he reports for many years and is getting worse and then when he is walking favoring his knees it makes his back hurt more patient reports this is getting worse over the past few weeks patient rates the pain in the knees is a 10 on scale 10 is worse over the past week 9 on average 6 at its least is an 8 today patient was aching sharp tight stabbing worse with weightbearing better with sitting or laying down generalized not awaken her from sleep at night no new motor or sensory deficits no new bowel or bladder incontinence noted. Patient reports no specific loss of motor function but significant fatigability and pain with weightbearing on the bilateral knees right essentially equal to left. Physical Exam: VS: Blood pressure is 172/74 pulse is 87 respirations 16 temperature is 98.9 F height is 6 foot weight is 266 pounds PE: PHYSICAL EXAMINATION: GENERAL: The patient is awake, alert, oriented, appropriate, very pleasant demeanor HEENT: Shows normocephalic, atraumatic. Extraocular movements are intact and symmetrical. Oral cavity: Mucous membranes moist and pink. NECK: Shows anterior throat supple without palpable lymphadenopathy noted. Swallow reflex symmetrical. CHEST: Shows normal on inspection. Breath sounds are clear bilaterally, no rales rhonchi or wheezes auscultated. HEART: Shows S1, S2 clear. No murmurs auscultated. ABDOMEN: Soft, nontender, nondistended, obese. No palpable organomegaly is noted. No rebound or guarding demonstrated. BACK: Shows spine grossly in the midline. Normal-appearing cervical lordotic curvature. There is slightly increased thoracic kyphosis, some minor flattening of the lumbar lordotic curvature. Lumbar paraspinous muscles show symmetrical on inspection, on palpation shows some moderate tenderness diffusely throughout the upper, middle and lower distribution of the paraspinous muscles bilaterally and also into the lower thoracic paraspinous musculature, firm and tender, but without specific trigger points, without radiation of pain. The patient has good rotational motion of the lumbar spine, both laterally as well as extension and flexion without significant difficulty. No tenderness over the spinous processes, sacrum or sacroiliac regions. EXTREMITIES: Lower extremities show deep tendon reflexes 1+ in the patellar and tendo calcaneus tendons. Motor exam is 5 on a scale of 5 with right dorsiflexion, extension, quadriceps and hamstring flexion and 5/5 on the left. Peripheral pulses are 1+ posterior tibial. No peripheral edema is noted bilaterally. Lower extremities are warm and dry to touch, equal in color and appearance. Patient's knees show good hinge motion with passive and active motion without crepitus or ratcheting with weightbearing patient describes significant pain with putting all the weight on the right or left knee with flexion but without radiation of pain. SKIN: Shows warm and dry, good turgor. No edema. No sores, rashes or bruising throughout. Procedure: Procedure: Options were discussed with the patient. Patient will chart was reviewed his his current medication regimen updated current review of systems updated today as well. We will proceed with bilateral intra-articular knee joint injections today with fluoroscopic guidance risks were again discussed including but not limited to bleeding infection possibility of intravascular injection sequelae spread of local anesthetic and numbness side effects of steroid medication and poor results chronic pain control. Patient understands wished to proceed. Return to clinic in approximately 1 week for follow-up will be start retaking his Xarelto tomorrow July 25. Medication Injected: Med Injected: Under sterile prep and drape patient in supine position using C-arm fluoroscopic guidance patient's bilateral knees were visualized 1% lidocaine was used for local anesthetic, using a 22-gauge Quincke needle the joint was entered without difficulty with some minor small amount of synovial fluid aspirated each joint, 1.5 cc each knee was then injected with contrast with good spread throughout the knee joint without extravasation, 60 mg Depo-Medrol each knee and 3 cc each knee of 0.25% bupivacaine for a total of 6cc was injected. Bandage was applied patient tolerated procedure well had no complications. Condition at Discharge: Condition at Discharge: Condition at discharge stable patient tolerated procedure well had no co mplications. BIANCA ODAN MD Jul 24, 2020 09:03
== END | disposition home or self-care (01) ==
LOC: PNCL 08:04
PROVIDERS: ATTEND Anesthesiology
DX: M17.0 Bilateral primary osteoarthritis of knee (principal); M51.16 Intervertebral disc disorders with radiculopathy, lumbar region; M48.061 Spinal stenosis, lumbar region without neurogenic claudication; M47.816 Spondylosis without myelopathy or radiculopathy, lumbar region; K21.9 Gastro-esophageal reflux disease without esophagitis; Z79.82 Long term (current) use of aspirin; Z79.899 Other long term (current) drug therapy; Z88.8 Allergy status to other drugs, medicaments and biological substances
CPT/HCPCS: 20610; 77002; J1030; J1040; J3490; Q9965

== ENCOUNTER → 2020-07-31 | Outpatient (CLI) | payer MEDICARE, BC ==
--- NOTE | 2020-07-31 12:08 | PDOC ---
Progress Note - Pain Clinic Date of Service: DOS: DATE: 07/31/20 TIME: 12:04 Diagnosis: Dx: Lumbar degenerative disease with lumbar spinal stenosis and lumbar radiculopathy postlaminectomy syndrome Lumbar and lumbosacral spondylosis Bilateral knee joint pain with osteoarthritis History or Present Illness: HPI: 69-year-old male returns follow-up status post total knee joint injections. Patient reports doing much better for about 5 or 6 days pain returning now as of yesterday though in the bilateral knees but about 60% improvement overall patient reports his main complaint is his low back pain without any radiation at this time into the lower extremities. Patient ports aching and sharp tight shooting across the low back worse with standing sitting for prolonged periods getting up from a seated position and especially with extension of lumbar spine and axial loading of the low back. Patient reports the pain is 8 on a scale of 10 is worst 8 on average 5 at its least and is an 8 today patient reports no new motor or sensory deficits no new bowel or bladder incontinence pain is better with sitting or laying down but sitting for more than about 30 minutes does increase the pain patient reports does not awaken him from sleep at night. Physical Exam: VS: Blood pressure 140/71 pulse 72 respirations 16 temperature 97.8 F height is 6 foot weight is 262 pounds PE: PHYSICAL EXAMINATION: GENERAL: The patient is awake, alert, oriented, appropriate, very pleasant demeanor HEENT: Shows normocephalic, atraumatic. Extraocular movements are intact and symmetrical. NECK: Shows anterior throat supple without palpable lymphadenopathy noted. CHEST: Shows normal on inspection. Breath sounds are clear bilaterally. HEART: Shows S1, S2 clear. No murmurs auscultated. ABDOMEN: Soft, nontender, nondistended, obese. No palpable organomegaly is noted. No rebound or guarding demonstrated. BACK: Shows spine grossly in the midline. Normal-appearing cervical lordotic curvature. There is slightly increased thoracic kyphosis, some minor flattening of the lumbar lordotic curvature with well-healed midline surgical scarring not ed. Lumbar paraspinous muscles show symmetrical on inspection, on palpation shows some moderate tenderness diffusely throughout the upper, middle and lower distribution of the paraspinous muscles bilaterally,without specific trigger points, without radiation of pain. The patient has good rotational motion of the lumbar spine, both laterally as well as extension and flexion with moderate pain reported with right and left lateral rotation right greater than left but with significant pain reported with extension and axial loading of the lumbar spine at 10 degrees decreased pain with forward flexion of 45 degrees. No tenderness over the spinous processes, sacrum or sacroiliac regions. EXTREMITIES: Lower extremities show deep tendon reflexes 1+ in the patellar and tendo calcaneus tendons. Motor exam is 5 on a scale of 5 with right dorsiflexion, extension, quadriceps and hamstring flexion and 5/5 on the left. Peripheral pulses are 1+ posterior tibial. No peripheral edema is noted bilaterally. Lower extremities are warm and dry to touch, equal in color and appearance. SKIN: Shows warm and dry, good turgor. No edema. No sores, rashes or bruising throughout. Procedure: Procedure: Options were discussed with the patient. Patient's old chart was reviewed his current medication regimen updated current review of systems updated today as well. We will proceed with bilateral L4-5 and L5-S1 facet joint injections with fluoroscopic guidance. Risks were discussed including but not limited to: Bleeding, infection, possibility of epidural hematoma and subsequent neurological compromise, dural puncture, headaches, spinal cord and/or nerve damage, side effects of steroid medication, and poor results regarding pain control. Patient understands wished to proceed. Patient return to clinic in approximately 2 weeks for follow-up was counseled as return appointment activity level and side effects to be aware of. Medication Injected: Med Injected: Under sterile prep and drape using C-arm fluoroscopic guidance AP and lateral and oblique views, bilateral L4-5 and L5-S1 facet joint injections, medications injected: 120 mg Depo-Medrol +4 cc 0.25% bupivacaine +2 cc contrast. Condition at discharge stable patient tolerated the procedure well and no complications. Condition at Discharge: Condition at Discharge: Condition at discharge is stable patient tolerated procedure well had no complications. BIANCA DOAN MD Jul 31, 2020 12:08
== END | disposition home or self-care (01) ==
LOC: PNCL 11:14
PROVIDERS: ATTEND Anesthesiology
DX: M48.061 Spinal stenosis, lumbar region without neurogenic claudication (principal); M51.16 Intervertebral disc disorders with radiculopathy, lumbar region; M47.896 Other spondylosis, lumbar region; M47.897 Other spondylosis, lumbosacral region; M17.0 Bilateral primary osteoarthritis of knee; M46.1 Sacroiliitis, not elsewhere classified; Z88.8 Allergy status to other drugs, medicaments and biological substances; Z79.82 Long term (current) use of aspirin; Z79.899 Other long term (current) drug therapy
CPT/HCPCS: 64635; 64636; J1030; J1040; J3490; Q9965

== ENCOUNTER → 2020-10-12 | Outpatient (CLI) | payer MEDICARE, BC ==
[~2020-10-12] MED LIST changes: -BUPIVACAINE MPF 0.25% 10 ML VIAL. ONE
--- NOTE | 2020-10-12 12:08 | PDOC ---
Progress Note - Pain Clinic Date of Service: DOS: DATE: 10/12/20 TIME: 12:01 Diagnosis: Dx: Lumbar radiculopathy with lumbar degenerative disc disease lumbar spinal stenosis lumbar spondylosis and post lumbar laminectomy syndrome Bilateral knee joint pain with osteoarthritis Cervical radiculopathy with cervical degenerative disc disease History or Present Illness: HPI: 70-year-old male returns follow-up status post bilateral L4-5 and L5-S1 facet injections July 31, 2020. Pursuing this again as he had most recently unde rgone this May 04, 2020. Patient reports about 80% improvement with the back pain but the pain in the lower extremities now is radiating in a posterior lateral aspect of the hips legs and into the anterior medial aspect of the legs bilaterally to the knees right essentially equal to left. Patient reports his back is doing much better but the traveling pain in the legs is now increasing. Patient has done well in the past with some lumbar epidural steroid injections and we discussed repeating this today if the radiating pain returned as he did well with this in April of this year. Patient reports while his back is feeling better the radiating pain is getting worse rates it as a 10 on scale 10 is worse over the past week 8 on average 8 its least and 8 today describes aching and sharp and tight shooting cramping and radiating to the lower extremities bilaterally. Patient reports no new motor or sensory deficits no bowel or bladder incontinence. Also complains of pain in the bilateral knees which is returning, also pain in the base the neck and left greater than right shoulder and upper extremities. Physical Exam: VS: Blood pressure is 116/61 pulse 74 respirations 18 temperature 98.1 F height is 6 foot weight is 264 pounds PE: PHYSICAL EXAMINATION: GENERAL: The patient is awake, alert, oriented, appropriate, very pleasant demeanor HEENT: Shows normocephalic, atraumatic. Extraocular movements are intact and symmetrical. Patient wearing eyeglasses. Oral cavity: Mucous membranes moist and pink. NECK: Shows anterior throat supple without palpable lymphadenopathy noted. Swallow reflex symmetrical. CHEST: Shows normal on inspection. Breath sounds are clear bilaterally, distant but clear bilaterally. HEART: Shows S1, S2 clear. No murmurs auscultated. ABDOMEN: Soft, nontender, nondistended, obese. No palpable organomegaly is noted. No rebound or guarding demonstrated. BACK: Shows spine grossly in the midline. Normal-appearing cervical lordotic curvature. Cervical paraspinous muscles show symmetrical inspection, on palpation shows some moderate tenderness diffusely in the inferior aspect of the cervical paraspinous muscles are more on the left than the right but present bilaterally without radiation. Patient shows good rotation motion cervical spine both laterally greater than 45 degrees right level is full extension full forward flexion without significant increase in pain. There is increased thoracic kyphosis, some minor flattening of the lumbar lordotic curvature, with well-healed surgical scar noted. Lumbar paraspinous muscles show symmetrical on inspection, on palpation shows some moderate tenderness diffusely throughout the upper, middle and lower distribution of the paraspinous muscles without specific trigger points, without radiation of pain. The patient has good rotational motion of the lumbar spine, both laterally as well as extension and flexion without significant difficulty. No tenderness over the spinous processes, sacrum or sacroiliac regions. EXTREMITIES: Lower extremities show deep tendon reflexes 1+ in the patellar and tendo calcaneus tendons. Motor exam is 5 on a scale of 5 with right dorsiflexion, extension, quadriceps and hamstring flexion and 5/5 on the left. Peripheral pulses are 1+ posterior tibial. No peripheral edema is noted bilaterally. Lower extremities are warm and dry to touch, equal in color and appearance. Upper extremities show deep tendon reflexes 2+ in the bicep tricep tendons bilaterally motor exam is strong with ct scan technologist strength rated 5 out of 5 as is bicep and tricep flexion. Peripheral pulses are 2+ radial no peripheral edema is noted. SKIN: Shows warm and dry, good turgor. No edema. No sores, rashes or bruising throughout. Procedure: Procedure: Options were discussed with the patient. Patient's old chart was reviewed his his current medication regimen updated current review of systems updated today as well. We will proceed with a lumbar epidural steroid injection as the first in the series. Risks were discussed including but not limited to: Bleeding, infection, possibility of epidural hematoma and subsequent neurological compromise, dural puncture, headaches, spinal cord and/or nerve damage, side effects of steroid medication, and poor results regarding pain control. Patient understands wished to proceed. Patient will return to clinic in approximate 2 weeks for follow-up, was counseled as to return appointment activity level and side effects be aware. Patient will restart Xarelto tomorrow. Medication Injected: Med Injected: Procedure is lumbar epidural steroid injection under local anesthetic using sterile prep and drape at the L4-5 level using C-arm fluoroscopic guidance in both AP and lateral views medications injected is 120 mg Depo-Medrol + 10 mL preservative-free normal saline and 2 mL contrast- condition at discharge is stable patient tolerated procedure well had no complications. Condition at Discharge: Condition at Discharge: Condition at discharge is stable, patient tolerated the procedure well and had no complications. BIANCA DOAN MD Oct 12, 2020 12:08
== END | disposition home or self-care (01) ==
LOC: PNCL 11:05
PROVIDERS: ATTEND Anesthesiology
DX: M51.16 Intervertebral disc disorders with radiculopathy, lumbar region (principal); M48.061 Spinal stenosis, lumbar region without neurogenic claudication; M47.26 Other spondylosis with radiculopathy, lumbar region; M50.10 Cervical disc disorder with radiculopathy, unspecified cervical region; M17.0 Bilateral primary osteoarthritis of knee; M96.1 Postlaminectomy syndrome, not elsewhere classified; Z79.82 Long term (current) use of aspirin; Z79.899 Other long term (current) drug therapy; Z91.040 Latex allergy status; Z98.890 Other specified postprocedural states
CPT/HCPCS: 62323; J1030; J1040; Q9965

== ENCOUNTER → 2020-12-15 | Outpatient (CLI) | payer MEDICARE, BC ==
--- NOTE | 2020-12-15 12:06 | PDOC ---
Progress Note - Pain Clinic Date of Service: DOS: DATE: 12/15/20 TIME: 12:01 Diagnosis: Dx: Lumbar radiculopathy with lumbar degenerative disc disease lumbar spinal stenosis and lumbar spondylosis with post lumbar laminectomy syndrome Cervical radiculopathy with cervical degenerative disc disease Bilateral knee joint pain with primary osteoarthritis History or Present Illness: HPI: Old male returns for follow-up status post lumbar epidural steroid injection x1 on October 12, 2020. Patient reports did very well with about 80% improvement in his chief complaint is pain in the base the neck and upper extremities more on the left than the right but present bilaterally with radiation into the upper extremities and arms. Patient reports is a 10 on scale 10 is worse over the pa st week 9 on average 7 its least is an 8 today. Patient reports cramping and dull in the base of the neck sharp and tight in the arms and shoulders radiating to the upper extremities but again worse on the left than the right but present bilaterally. Patient reports he has had some increased weakness with his left arm patient was reaching over his head with his left side but no overt muscular loss. Patient reports after his low back injection has been doing did better distance walking as well as household activities and travel with greater ease. Patient continues to complain of pain in the bilateral knees as well with weightbearing. Patient reports no new motor or sensory deficits no new bowel or bladder incontinence. Physical Exam: VS: Blood pressure is 173/109 pulse 80 respirations 18 temperature 99.4 F 6 foot weight is 274 pounds PE: PHYSICAL EXAMINATION: GENERAL: The patient is awake, alert, oriented, appropriate, very pleasant demeanor HEENT: Shows normocephalic, atraumatic. Extraocular movements are intact and symmetrical. Oral cavity: Mucous membranes moist and pink. NECK: Shows anterior throat supple without palpable lymphadenopathy noted. Swallow reflex symmetrical. CHEST: Shows normal on inspection. Breath sounds are clear bilaterally, distant but no rales or rhonchi. HEART: Shows S1, S2 clear. No murmurs auscultated. ABDOMEN: Soft, nontender, nondistended, obese. No palpable organomegaly is noted. BACK: Shows spine grossly in the midline. Normal-appearing cervical lordotic curvature. Cervical paraspinous muscles show symmetrical inspection with palpation some moderate tenderness diffusely in the inferior aspect of the cervical paraspinous muscle as well as bilateral trapezius superiorly more left than right but without trigger points without asymmetry or atrophy hypertrophy. Patient shows good rotation motion cervical spine both laterally as well as full extension full forward flexion without significant increase in pain. There is slightly increased thoracic kyphosis, some minor flattening of the lumbar lordotic curvature. Lumbar paraspinous muscles show symmetrical on inspection, on palpation shows some moderate tenderness diffusely throughout the upper, middle and lower distribution of the paraspinous muscles, but without specific trigger points, without radiation of pain. The patient has good rotational motion of the lumbar spine, both laterally as well as extension and flexion without significant difficulty. EXTREMITIES: Lower extremities show deep tendon reflexes 1+ in the patellar and tendo calcaneus tendons. Motor exam is 5 on a scale of 5 with right dorsiflexion, extension, quadriceps and hamstring flexion and 5/5 on the left. Peripheral pulses are 1+ posterior tibial. No peripheral edema is noted bilaterally. Lower extremities are warm and dry to touch, equal in color and appearance. Upper extremity show deep tendon reflexes 2+ in the bicep tricep tendons motor exam is strong with ink technician strength rated 5 out of 5 as is bicep and tricep flexion bilaterally. Shoulder shrug is strong and intact without loss of strength on resistance bilaterally. SKIN: Shows warm and dry, good turgor. No edema. No sores, rashes or bruising throughout. Procedure: Procedure: Options were discussed with the patient. Patient chart reviews his current medication regimen updated current review of systems updated today as well. We will proceed with a cervical epidural steroid injection today with fluoroscopic guidance. Risks were discussed including but not limited to: Bleeding, infection, possibility of epidural hematoma and subsequent neurological compromise, dural puncture, headaches, spinal cord and/or nerve damage, side effects of steroid medication, and poor results regarding pain control. Patient return to clinic in approximate 2 weeks for follow-up, was counseled as return appointment activity level and side effects to be aware of. Medication Injected: Med Injected: Procedure cervical epidural steroid injection at the C6-7 level, using local anesthetic under sterile prep and drape using C-arm fluoroscopic guidance under local anesthesia medications injected ; 120 mg Depo-Medrol + 5 mL normal saline and 2 mL contrast; condition at discharge is stable patient tolerated procedure well. and had no complications Condition at Discharge: Condition at Discharge: Condition at discharge stable, patient alert procedure well had no complications. BIANCA DOAN MD Dec 15, 2020 12:06
--- NOTE | 2020-12-15 12:08 | PDOC4 ---
PROCEDURE Procedure Patient was consented for cervical epidural steroid injection. Risks were d iscussed including but not limited to: Bleeding, infection, possibility of epidural hematoma and subsequent neurological compromise, dural puncture, headaches, spinal cord and/or nerve damage, side effects of steroid medication, and poor results regarding pain control. Patient understands and wished to proceed. Procedure cervical epidural steroid injection at the C6-7 level, using local anesthetic under sterile prep and drape using C-arm fluoroscopic guidance under local anesthesia medications injected ; 120 mg Depo-Medrol + 5 mL normal saline and 2 mL contrast; condition at discharge is stable patient tolerated procedure well. and had no complications BIANCA DOAN MD Dec 15, 2020 12:07
== END | disposition home or self-care (01) ==
LOC: PNCL 11:04
PROVIDERS: ATTEND Anesthesiology
DX: M50.10 Cervical disc disorder with radiculopathy, unspecified cervical region (principal); M51.16 Intervertebral disc disorders with radiculopathy, lumbar region; M48.061 Spinal stenosis, lumbar region without neurogenic claudication; M47.26 Other spondylosis with radiculopathy, lumbar region; M96.1 Postlaminectomy syndrome, not elsewhere classified; M17.0 Bilateral primary osteoarthritis of knee; Z79.82 Long term (current) use of aspirin; Z79.899 Other long term (current) drug therapy; Z91.040 Latex allergy status
CPT/HCPCS: 62321; J1030; J1040; Q9965

== ENCOUNTER → 2021-02-25 | Outpatient (CLI) | payer MEDICARE, BC ==
[~2021-02-25] MED LIST changes: +BUPIVACAINE MPF 0.25% 10 ML VIAL. ONE
--- NOTE | 2021-02-25 13:03 | PDOC ---
Progress Note - Pain Clinic Date of Service: DOS: DATE: 02/25/21 TIME: 12:44 Diagnosis: Dx: Lumbar radiculopathy with lumbar degenerative disc disease lumbar spinal stenosis and lumbar postlaminectomy syndrome with spondylosis Cervical radiculopathy with cervical degenerative disc disease Bilateral knee joint pain with osteoarthritis History or Present Illness: HPI: 70-year-old male returns for follow-up status post cervical epidural steroid injection x2 as well as bilateral knee injections in the past as well patient reports he did very well after last injections approximately 60% improvement overall has significant pain now with walking standing on the knees especially with putting all his weight on 1 leg such as climbing stairs or stepping up on a step patient reports he is holding onto handrails as well as [place] and cars in parking lots anything he can do when he is walking and standing because of the pain in his knees slightly worse on the right than the left but present bilaterally with weightbearing. Patient reports with sitting or laying down does not have pain is almost completely relieved patient rates pain is a 10 on scale 10 is worse over the past week 9 on average 8 its least is an 8 today. Patient reports no new motor or sensory deficits no new bowel or bladder incontinence or other complaints describes the pain as aching and tight radiating can be constant and severe in the knees with weightbearing only. Physical Exam: VS: Blood pressure is 162/90 pulse 67 respirations 18 temperature 97.8 F height is 6 foot weight is 280 pounds PE: PHYSICAL EXAMINATION: GENERAL: The patient is awake, alert, oriented, appropriate, very pleasant demeanor HEENT: Shows normocephalic, atraumatic. Extraocular movements are intact and symmetrical. Oral cavity: Mucous membranes moist and pink. NECK: Shows anterior throat supple without palpable lymphadenopathy noted. Swallow reflex symmetrical. CHEST: Shows normal on inspection. Breath sounds are clear bilaterally. HEART: Shows S1, S2 clear. No murmurs auscultated. ABDOMEN: Soft, nontender, nondistended, obese. No palpable organomegaly is noted. No rebound or guarding demonstrated. BACK: Shows spine grossly in the midline. Normal-appearing cervical lordotic curvature. There is slightly increased thoracic kyphosis, some minor flattening of the lumbar lordotic curvature. Well-healed surgical scarring is noted. Lumbar paraspinous muscles show symmetrical on inspection, on palpation shows some moderate tenderness diffusely throughout the upper, middle and lower distribution of the paraspinous muscles, but without specific trigger points, without radiation of pain. The patient has good rotational motion of the lumbar spine, both laterally as well as extension and flexion without significant difficulty. EXTREMITIES: Lower extremities show deep tendon reflexes in the patellar and tendo calcaneus tendons. Motor exam is 5 on a scale of 5 with right dorsiflexion, extension, quadriceps and hamstring flexion and 5/5 on the left. Peripheral pulses are 1+ posterior tibial. No peripheral edema is noted bilaterally. Patient's knees show good range of motion with passive motion without crepitus or ratcheting. With weightbearing patient reports significant pain mostly in the medial compartment bilaterally. Lower extremities are warm and dry to touch, equal in color and appearance. SKIN: Shows warm and dry, good turgor. No edema. No sores, rashes or bruising throughout. Procedure: Procedure: Options were discussed with the patient. Patient's old chart was reviewed, his current medication regimen updated, and review of systems updated today as well. We will proceed with bilateral intra-articular knee joint injections today with fluoroscopic guidance. Risk were discussed including but not limited to bleeding infection possibility of intravascular injection and sequelae spread local anesthetic and numbness exposure to fluoroscopy side effects steroid medication portals regarding pain control. Patient understands wished to proceed. Patient return to clinic in approximately 4 weeks for follow-up, was counseled as return appointment activity level and side effects to be aware of. Medication Injected: Med Injected: Under sterile prep and drape patient in supine position using C-arm fluoroscopic guidance patient's bilateral knees were sterilely prepped and draped in usual fashion. Using C-arm fluoroscopy the medial aspect of the knee joint was identified and visualized and using 1% lidocaine 25-gauge needle of the area of the skin overlying the medial knee compartment was anesthetized. Using a 22- gauge quickie needle with stylette the joint was entered under direct visualization without difficulty. Stylet was removed at this time 2 cc of contrast was then injected with good spread within the knee joint itself without washout or uptake. At this time solution containing 3 cc each knee of 0.25 bupivacaine for total of 6 cc and a total of 120 mg Depo-Medrol, 60 mg per knee, were then injected. [place] were withdrawn and sterile bandages were applied. Patient tolerated procedure well and had no complications. Condition at Discharge: Condition at Discharge: Condition at discharge stable, patient already the procedure well and had no complications. BIANCA DOAN MD Feb 25, 2021 12:50
== END | disposition home or self-care (01) ==
LOC: PNCL 11:05
PROVIDERS: ATTEND Anesthesiology
DX: M17.0 Bilateral primary osteoarthritis of knee (principal); M51.16 Intervertebral disc disorders with radiculopathy, lumbar region; M48.061 Spinal stenosis, lumbar region without neurogenic claudication; M96.1 Postlaminectomy syndrome, not elsewhere classified; M50.10 Cervical disc disorder with radiculopathy, unspecified cervical region; M47.26 Other spondylosis with radiculopathy, lumbar region; Z79.82 Long term (current) use of aspirin; Z79.899 Other long term (current) drug therapy; Z91.040 Latex allergy status; Z98.890 Other specified postprocedural states
CPT/HCPCS: 20610; 77002; J1030; J1040; J3490; Q9965

== ENCOUNTER → 2021-05-13 | Outpatient (CLI) | payer MEDICARE, BC ==
[~2021-05-13] MED LIST changes: -BUPIVACAINE MPF 0.25% 10 ML VIAL. ONE
--- NOTE | 2021-05-13 16:00 | PDOC ---
Progress Note - Pain Clinic Date of Service: DOS: DATE: 05/13/21 TIME: 15:55 Diagnosis: Dx: Lumbar radiculopathy with lumbar degenerative disc disease lumbar spinal stenosis with postlaminectomy syndrome and lumbar spondylosis Cervical radiculopathy with cervical degenerative disc disease Bilateral knee joint pain with osteoarthritis History or Present Illness: HPI: 70-year-old male returns for follow-up status post bilateral intra-articular knee joint injections February 25, 2021 patient did very well with these reports about 75% improvement the pain is beginning to return now is is been a few months his chief complaint however today is back pain in the low back and bilateral lower extremities posterior gluteus posterior thighs lateral thighs anterior thighs worse with walking standing changing positions patient reports that he is done very well in the past with lumbar epidural steroid injections like to pursue this once again. Patient reports new pain however in the mid to upper back which seems to be related to the low back pain but is definitely more sharp and stabbing in quality. Patient reports is a 10 on scale 10 is worse over the past week 7 at its least 8 his average is a 7 today patient ports aching and sharp tight radiating in the lower extremities stabbing in the back and is sharp and stabbing in the mid upper back which she has not had before. Patient reports it wakes him from sleep about every 5-7 hours but he feels much better laying down generally better with sitting as well walking standing bending stooping repetitively tends to increase the pain significantly. Patient reports no loss of motor function no bowel or bladder incontinence but significant fatigability of both legs with activity. Patient reports new medication change of taking naproxen which is new to him, and has had about 30% improvement in the pain in the knees. Physical Exam: VS: Blood pressure is 140/83 pulse 93 respirations 18 temperature 98.1 F weight is 277 pounds PE: PHYSICAL EXAMINATION: GENERAL: The patient is awake, alert, oriented, appropriate, very pleasant in demeanor. HEENT: Shows normocephalic, atraumatic. Extraocular movements are intact and symmetrical. Oral cavity: Mucous membranes moist and pink. NECK: Shows anterior throat supple without palpable lymphadenopathy noted. Swallow reflex symmetrical. CHEST: Shows normal on inspection. Breath sounds are clear bilaterally, distant but no rales or rhonchi auscultated. HEART: Shows S1, S2 clear. No murmurs auscultated. ABDOMEN: Soft, nontender, nondistended, obese. BACK: Shows spine grossly in the midline. Normal-appearing cervical lordotic curvature. There is increased thoracic kyphosis, with moderate tenderness with palpation in the thoracic paraspinous musculature right greater than left, there is some flattening of the lumbar lordotic curvature. Lumbar paraspinous muscles show symmetrical on inspection, on palpation shows some moderate tenderness diffusely throughout the upper, middle and lower distribution of the paraspinous muscles without specific trigger points, without radiation of pain. The patient has good rotational motion of the lumbar spine, both laterally as well as extension and flexion without significant difficulty. No tenderness over the spinous processes, sacrum or sacroiliac regions. EXTREMITIES: Lower extremities show deep tendon reflexes 1+ in the patellar and tendo calcaneus tendons. Motor exam is 5 on a scale of 5 with right dorsiflexion, extension, quadriceps and hamstring flexion and 5/5 on the left. Peripheral pulses are 1 posterior tibial. No peripheral edema is noted bilaterally. Lower extremities are warm and dry. Patient's knees show good range of motion without crepitus or ratcheting. SKIN: Shows warm and dry, good turgor. No edema. No sores, rashes or bruising throughout. Procedure: Procedure: Options were discussed with the patient. Patient chart reviews his current medication regimen updated current review of systems updated today as well. We will proceed with a lumbar epidural steroid injection as a third in the series today with fluoroscopic guidance. Risks were discussed including but not limited to: Bleeding, infection, possibility of epidural hematoma and subsequent neurological compromise, dural puncture, headaches, spinal cord and/or nerve damage, side effects of steroid medication, and poor results regarding pain cont rol. Patient understands and wished to proceed. Patient will return to the clinic in approximately 2 weeks for follow-up, was counseled as to return appointment activity level and side effects to be aware of. Medication Injected: Med Injected: Procedure is lumbar epidural steroid injection under local anesthetic using sterile prep and drape at the L5-S1 level using C-arm fluoroscopic guidance in both AP and lateral views medications injected is 120 mg Depo-Medrol +10mL pre servative-free normal saline and 2 mL contrast- condition at discharge is stable patient tolerated procedure well had no complications. Condition at Discharge: Condition at Discharge: Condition at discharge is stable, patient alert the procedure well and had no complications. BIANCA DOAN MD May 13, 2021 16:00
--- NOTE | 2021-05-13 16:00 | PDOC4 ---
Procedure Note: Procedure Note: Patient was consented for lumbar epidural steroid injection. Risks were discussed including but not limited to: Bleeding, infection, possibility of epidural hematoma and subsequent neurological compromise, dural puncture, headaches, spinal cord and/or nerve damage, side effects of steroid medication, and poor results regarding pain control. Patient understands and wished to proceed. Procedure is lumbar epidural steroid injection under local anesthetic using sterile prep and drape at the L5-S1 level using C-arm fluoroscopic guidance in both AP and lateral views medications injected is 120 mg Depo-Medrol +10mL preservative-free normal saline and 2 mL contrast- condition at discharge is stable patient tolerated procedure well had no complications. BIANCA DOAN MD May 13, 2021 16:00
== END | disposition home or self-care (01) ==
LOC: PNCL 14:18
PROVIDERS: ATTEND Anesthesiology
DX: M51.16 Intervertebral disc disorders with radiculopathy, lumbar region (principal); M48.061 Spinal stenosis, lumbar region without neurogenic claudication; M96.1 Postlaminectomy syndrome, not elsewhere classified; M47.816 Spondylosis without myelopathy or radiculopathy, lumbar region; M50.10 Cervical disc disorder with radiculopathy, unspecified cervical region; M17.0 Bilateral primary osteoarthritis of knee; Z79.82 Long term (current) use of aspirin; Z79.899 Other long term (current) drug therapy; Z98.890 Other specified postprocedural states; Z91.040 Latex allergy status
CPT/HCPCS: 62323; J1030; J1040; Q9965

== ENCOUNTER → 2021-05-27 | Outpatient (CLI) | payer MEDICARE, BC ==
[~2021-05-27] MED LIST changes: +BUPIVACAINE MPF 0.25% 10 ML VIAL. ONE
--- NOTE | 2021-05-27 12:39 | PDOC ---
Progress Note - Pain Clinic Date of Service: DOS: DATE: 05/27/21 TIME: 12:35 Diagnosis: Dx: Lumbar radiculopathy with lumbar degenerative disc disease lumbar spinal stenosis lumbar postlaminectomy syndrome and lumbar spondylosis Cervical radiculopathy with cervical degenerative disc disease Bilateral knee joint pain with primary osteoarthritis History or Present Illness: HPI: 70-year-old male returns follow-up status post lumbar epidural steroid injections most recently May 13, 2021 with very good results least 50% improv ement his main complaint today however is bilateral knee joint pain worse with walking standing worse on the right side than the left but present bilaterally worse with standing steps climbing stairs putting all his weight on 1 leg or the other significant pain better with sitting and resting or laying down patient reports still with occasionally wakes him from sleep at night most nights patient reports that sharp and aching tight in the knees himself again more on the right than the left patient reports his back is doing better but still has some radiating pain in the lower extremities in the posterior gluteus and thighs as well patient reports his pain is 8 on scale 10 is worse the past week regarding his knee 7 on average 6 its least and is a 7 today. Patient reports no new motor or sensory deficits no bowel bladder incontinence. Patient has held his Xarelto now for 3 days. Physical Exam: VS: Blood pressure is 201/112 pulse 70 respirations 18 temperature is 98.2 F height is 6 foot weight is 278 pounds PE: PHYSICAL EXAMINATION: GENERAL: The patient is awake, alert, oriented, appropriate, very pleasant demeanor HEENT: Shows normocephalic, atraumatic. Extraocular movements are intact and symmetrical. Oral cavity: Mucous membranes moist and pink. NECK: Shows anterior throat supple without palpable lymphadenopathy noted. Swallow reflex symmetrical. CHEST: Shows normal on inspection. Breath sounds are clear bilaterally, distant but no rales or rhonchi. HEART: Shows S1, S2 clear. No murmurs auscultated. ABDOMEN: Soft, nontender, nondistended, obese. No palpable organomegaly is noted. BACK: Shows spine grossly in the midline. Normal-appearing cervical lordotic curvature. There is slightly increased thoracic kyphosis, some minor flattening of the lumbar lordotic curvature. Lumbar paraspinous muscles show symmetrical on inspection, on palpation shows some moderate tenderness diffusely throughout the upper, middle and lower distribution of the paraspinous muscles without specific trigger points, without radiation of pain. The patient has good rotational motion of the lumbar spine, both laterally as well as extension and flexion without significant difficulty. EXTREMITIES: Lower extremities show deep tendon reflexes 1 to in the patellar and tendo calcaneus tendons. Motor exam is 5 on a scale of 5 with right dorsiflexion, extension, quadriceps and hamstring flexion and 5/5 on the left. Peripheral pulses are 1 posterior tibial. No peripheral edema is noted bilaterally. Lower extremities are warm and dry. Bilateral knees shows good range of motion without crepitus or ratcheting some moderate tenderness with palpation over the medial collateral ligament on the right more than the left but no swelling no discoloration and no obvious asymmetry from right to left. SKIN: Shows warm and dry, good turgor. No edema. No sores, rashes or bruising throughout. Procedure: Procedure: Options were discussed with the patient. Patient chart reviews his current medication regimen updated current review of systems updated today as well. We will proceed with bilateral intra-articular knee joint injections today with fluoroscopic guidance. Risk were discussed including but not limited to bleeding infection possibility of intravascular ejection sequelae spread both static and numbness, exposure to fluoroscopy, side effects of steroid medication and poor results regarding pain control. Patient will return to the clinic in approximately 3 weeks for follow-up, was counseled as to return appointment activity level and side effects to be aware of. Patient will restart his Xarelto tomorrow May 28. Medication Injected: Med Injected: Under sterile prep and drape patient in supine position using C-arm fluoroscopic guidance patient's bilateral knees were sterilely prepped and draped in usual fashion. Using C-arm fluoroscopy the medial aspect of the knee joint was identified and visualized and using 1% lidocaine 25-gauge needle of the area of the skin overlying the medial knee compartment was anesthetized. Using a 22- gauge quickie needle with stylette the joint was entered under direct visualization without difficulty. Stylet was removed at this time 2 cc of contrast was then injected with good spread within the knee joint itself without washout or uptake. At this time solution containing 3 cc each knee of 0.25 bupivacaine for total of 6 cc and a total of 120 mg Depo-Medrol, 60 mg per knee, were then injected. [place] were withdrawn and sterile bandages were applied. Patient tolerated procedure well and had no complications. Condition at Discharge: Condition at Discharge: Condition at discharge stable, patient already procedure well and had no complications. BIANCA DOAN MD May 27, 2021 12:39
--- NOTE | 2021-05-27 12:40 | PDOC4 ---
Procedure Note: ICD 10 Code: ICD 10 Code: M 17.0 M 25.69 Procedure Note: Patient was consented for bilateral intra-articular knee joint injections with fluoroscopic guidance. Risks were discussed including but not limited to bleeding infection possibility of intravascular injection and sequelae spread of local anesthetic and numbness side effects of steroid medication portals regarding pain control. Patient understands wished to proceed. Under sterile prep and drape patient in supine position using C-arm fluoroscopic guidance patient's bilateral knees were sterilely prepped and draped in usual fashion. Using C-arm fluoroscopy the medial aspect of the knee joint was identified and visualized and using 1% lidocaine 25-gauge needle of the area of the skin overlying the medial knee compartment was anesthetized. Using a 22-gauge quickie needle with stylette the joint was entered under direct visualization without difficulty. Stylet was removed at this time 2 cc of contrast was then injected with good spread within the knee joint itself without washout or uptake. At this time solution containing 3 cc each knee of 0.25 bupivacaine for total of 6 cc and a total of 120 mg Depo-Medrol, 60 mg per knee, were then injected. [place] were withdrawn and sterile bandages were applied. Patient tolerated the procedure well and had no complications. BIANCA DOAN MD May 27, 2021 12:40
== END | disposition home or self-care (01) ==
LOC: PNCL 11:00
PROVIDERS: ATTEND Anesthesiology
DX: M17.0 Bilateral primary osteoarthritis of knee (principal); M51.16 Intervertebral disc disorders with radiculopathy, lumbar region; M47.26 Other spondylosis with radiculopathy, lumbar region; M48.061 Spinal stenosis, lumbar region without neurogenic claudication; M50.10 Cervical disc disorder with radiculopathy, unspecified cervical region; Z79.82 Long term (current) use of aspirin; Z79.899 Other long term (current) drug therapy; Z87.891 Personal history of nicotine dependence; Z72.89 Other problems related to lifestyle; Z91.040 Latex allergy status
CPT/HCPCS: 20610; 77002; J1030; J1040; J3490; Q9965

== ENCOUNTER 2021-05-29 19:26 | Emergency (ER) | payer MEDICARE, BC ==
[~2021-05-29] VITALS: Ht 182.9 cm; Wt 125.9 kg
[~2021-05-29 19:26] MED LIST changes: -BUPIVACAINE MPF 0.25% 10 ML VIAL. ONE; -IOHEXOL 180 MG/ML 10 ML VIAL. ONE; -methylPREDNISolone ACETATE 40 MG/ML VIAL. ONE; -methylPREDNISolone ACETATE 80 MG/ML VIAL. ONE
[2021-05-29 19:47] LABS: BASO # 0.1 x10^3/uL (0.0-0.2); BASO % 1 % (0-3); EOS # 0.1 x10^3/uL (0.0-0.7); EOS % 1 % (0-3); HEMATOCRIT 40.4 % (39.0-53.0); HEMOGLOBIN 13.8 g/dL (13.0-17.5); LYMPH # 2.2 x10^3/uL (1.0-4.8); LYMPH % 21 % (24-48); MEAN CORPUSCULAR HEMOGLOBIN 32 pg (25-35); MEAN CORPUSCULAR HGB CONC 34 g/dL (31-37); MEAN CORPUSCULAR VOLUME 94 fL (79-100); MONO # 0.9 x10^3/uL (0.0-1.1); MONO % 9 % (0-9); NEUT # 7.3 x10^3/uL (1.8-7.7); NEUT % 69 % (31-73); PLATELET COUNT 216 x10^3/uL (140-400); WHITE BLOOD COUNT 10.6 x10^3/uL (4.0-11.0)
--- NOTE | 2021-05-29 19:53 | PHYS DOC ---
General Adult EDM: Chief Complaint: MECHANICAL FALL HPI: HPI: Patient is a 70 year old male anticoagulated with Xarelto who presents with the mechanical fall striking the left side of his head. Was at a picnic table and had a beer to drink. He got tripped up on the picnic table and fell over striking the left side of his head. Has a 2 cm laceration there. Denies LOC. Denies any pain except for some discomfort to his scalp where the laceration is. No neck pain, back pain, chest wall pain. No shortness of breath. Was feeling in his normal state of health prior to the fall. Review of Systems: Review of Systems: Constitutional: Denies fever or chills. [] Eyes: Denies change in visual acuity. [] HENT: Denies nasal congestion or sore throat. [] Respiratory: Denies cough or shortness of breath. [] Cardiovascular: Denies chest pain or edema. [] GI: Denies abdominal pain, nausea, vomiting, bloody stools or diarrhea. [] : Denies dysuria. [] Musculoskeletal: Denies back pain or joint pain. [] Integument: Denies rash. [] Neurologic: Denies headache, focal weakness or sensory changes. [] Endocrine: Denies polyuria or polydipsia. [] Lymphatic: Denies swollen glands. [] Psychiatric: Denies depression or anxiety. [] Heart Score: C/O Chest Pain: No Risk Factors: Risk Factors: DM, Current or recent (<one month) smoker, HTN, HLP, family history of CAD, obesity. Risk Scores: Score 0 - 3: 2.5% MACE over next 6 weeks - Discharge Home Score 4 - 6: 20.3% MACE over next 6 weeks - Admit for Clinical Observation Score 7 - 10: 72.7% MACE over next 6 weeks - Early Invasive Strategies Family History: Family History: No pertinent family history Current Medications: Current Medications Medications (Trade) Dose Ordered Sig/Yariel Start Time Stop Time Status Last Admin Dose Admin Lidocaine/ Epinephrine (LIDOCAINE 1%-EPI 1:100,000 Multi-Dose) 20 ml 1X ONCE 05/29/21 20:00 05/29/21 20:01 Allergies: Allergies: Allergies Coded Allergies Type Severity Reaction Last Updated Verified latex Allergy Intermediate 04/10/20 Yes Physical Exam: PE: Constitutional: Well developed, well nourished, no acute distress, non-toxic appearance. [] HENT: 5 cm laceration to the left occipital parietal scalp. No evidence of malocclusion. No blood in nares or mouth. Bilateral external ears normal, oropharynx moist, no oral exudates, nose normal. [] Eyes: PERRLA, EOMI, conjunctiva normal, no discharge. [] Neck: Arrives in c-collar. No midline neck pain.. [] Cardiovascular:Heart rate regular rhythm, no murmur [] Lungs & Thorax: No chest wall tenderness to palpation. Bilateral breath sounds clear to auscultation [] Abdomen: Bowel sounds normal, soft, no tenderness, no masses, no pulsatile masses. [] Skin: Warm, dry, no erythema, no rash. [] Back: No midline spinal tenderness. No tenderness, no CVA tenderness. [] Extremities: No clavicular tenderness or pelvic tenderness to palpation or instability. Full ROM of all extremities is pain free. [] Neurologic: Alert and oriented X 3, normal motor function, normal sensory function, no focal deficits noted. [] Psychologic: Affect normal, judgement normal, mood normal. [] EKG: EKG: Sinus rhythm. Rate 65. Upsloping in anterior leads Q waves inferiorly. [] Radiology/Procedures: Radiology/Procedures: Indication: Left scalp laceration Procedure: The patient was placed in the appropriate position and anesthesia around the left scalp laceration was anesthetized with 1% lidocaine with epinephrine. The area was then cleansed with 200 cc normal saline through pressure syringe.. The laceration was closed with 6 kaylen.. The wound was left unbandaged. Total repaired wound length: 5 cm. Other Items: None The patient tolerated the procedure well. Complications: None. Impression: [facility] [address] [place], [place] [id number] IMAGING REPORT Signed PATIENT: DORIAN GUAMAN ACCOUNT: [id number] : 1950 LOCATION: ER AGE: 70 SEX: M EXAM STATUS: PRE ER ORD. PHYSICIAN: KELLY TUCKER MD REASON: fall, head trauma, on xarelto PROCEDURE: CT HEAD AND CERVICAL SPINE WO Exam: CT head and cervical spine INDICATION: Fall, head trauma TECHNIQUE: Sequential axial images through the head and cervical spine were obtained without the administration of IV contrast. Exposure: One or more of the following in the visualized dose reduction techniques were utilized for this examination: 1. Automated exposure control 2. Adjustment of the MA and/or KV according to patient size 3. Use of iterative of reconstructive technique Comparisons: 03/01/2021 FINDINGS: Head: No focal parenchymal lesion or hemorrhage is identified. There is no midline shift or sulcal effacement. Patchy hypodensities in the periventricular white matter, similar prior. No acute vascular territory infarction is identified. Lynch-white distinction is preserved. The ventricular system is within normal limits without compression hydrocephalus. The basal cisterns are well maintained. Extra cranial soft tissue scalp contusion overlying the left posterior parietal region. The visualized portions of the paranasal sinuses and mastoid air cells are well-pneumatized. No acute fractures. Cervical spine: Straightening of cervical spine which may positional. Vertebral body heights are well-maintained. Fracture through the cervical spine is not identified. Multilevel spondylotic change in cervical spine with degenerative disease greatest at C5-C6. Mild bilateral facet arthropathy is also noted in cervical spine. Visualized paraspinal soft tissues are unremarkable. IMPRESSION: 1. Extra cranial soft tissue scalp contusion overlying the left posterior parietal region without underlying osseous or intracranial abnormality. 2. Negative CT C-spine for acute traumatic injury. Electronically signed by: José Antonio Muller MD (05/29/2021 8:47 PM) [facility] DICTATED and SIGNED BY: JOSÉ ANTONIO MULLER MD DATE: 05/29/[id number] 0 Course & Med Decision Making: Course & Med Decision Making Pertinent Labs and Imaging studies reviewed. (See chart for details) Patient is a 70-year-old male anticoagulated on Xarelto presents with mechanical fall and laceration of the left thumb. Laceration is hemostatic on arrival. No LOC. Denies any pain. His primary and secondary exams do not show any external signs of injury aside from the laceration on his head. We will CT his head and neck and check basic labs. Plan to close his laceration with kaylen following CT. [address] Closed with [address] head and neck negative. Labs with normal limits. Patient given wound instructions. [id number] Disclaimer: Geovani Disclaimer: This electronic medical record was generated, in whole or in part, using a voice recognition dictation system. Departure Departure Impression: Primary Impression: Scalp laceration Disposition: HOME / SELF CARE / HOMELESS Condition: STABLE Referrals: ROBBY MONTANEZ (PCP) To have kaylen removed in 7-10 days Additional Instructions: You have a laceration scalp. We placed 6 kaylen. These will need to come out in 7 to 10 days. Please schedule appointment with your primary care doctor, or visit in ED or urgent care to have these removed. Keep the area clean and dry. Keep it dressed. Use an ointment such as Neosporin or bacitracin on it. If you have increasing swelling, pain, redness, or warmth these are all signs of potential infection. If these occur please see your doctor. KELLY TUCKER MD May 29, 2021 19:53
[2021-05-29 20:00] LABS: CALCIUM 8.7 mg/dL (8.5-10.1); CREATININE 1.3 mg/dL (0.7-1.3); GFR 54.4; POTASSIUM 3.6 mmol/L (3.5-5.1)
[2021-05-29] MEDS ORDERED: LIDOCAINE 1%/EPI 1:100,000 20 ML VIAL. INJ ONE (20:00)
[2021-05-29 20:06] LABS: ALBUMIN 3.3 g/dL (3.4-5.0); TOTAL BILIRUBIN 0.3 mg/dL (0.2-1.0); TOTAL PROTEIN 6.5 g/dL (6.4-8.2)
[2021-05-29 20:18] VITALS: BP 153/77
--- NOTE | 2021-05-29 20:49 | RAD ---
Exam: CT head and cervical spine INDICATION: Fall, head trauma TECHNIQUE: Sequential axial images through the head and cervical spine were obtained without the admi nistration of IV contrast. Exposure: One or more of the following in the visualized dose reduction techniques were utilized for this examination: 1. Automated exposure control 2. Adjustment of the MA and/or KV according to patient size 3. Use of iterative of reconstructive technique Comparisons: 03/01/2021 FINDINGS: Head: No focal parenchymal lesion or hemorrhage is identified. There is no midline shift or sulcal effaceme nt. Patchy hypodensities in the periventricular white matter, similar prior. No acute vascular territory infarction is identified. Lynch-white distinction is preserved. The ventricular system is within normal limits without compression hydrocephalus. The basal cisterns are well maintained. Extra cranial soft tissue scalp contusion overlying the left posterior parietal region. The visualize d portions of the paranasal sinuses and mastoid air cells are well-pneumatized. No acute fractures. Cervical spine: Straightening of cervical spine which may positional. Vertebral body heights are well-maintained. Fracture through the cervical spine is not identified. Multilevel spondylotic change in cervical spine with degenerative disease greatest at C5-C6. Mild fazal ateral facet arthropathy is also noted in cervical spine. Visualized paraspinal soft tissues are unremarkable. IMPRESSION: 1. Extra cranial soft tissue scalp contusion overlying the left posterior parietal region without un derlying osseous or intracranial abnormality. 2. Negative CT C-spine for acute traumatic injury. Electronically signed by: José Antonio Simon MD (05/29/2021 8:47 PM) [facility]
--- NOTE | 2021-05-30 03:22 | EKG ---
[facility] [address] [place] [address] Test Date: 2021-05-29 Test Time: 19:28:31 Pat Name: DORIAN GUAMAN Department: Room: Gender: M Rail Switchman: LISA : 1950 Requested By: KELLY TUCKER Order Number: [id number] Reading MD: Measurements Intervals [place] Rate: 65 P: 35 AR: 196 QRS: 7 QRSD: 114 T: 78 QT: 406 QTc: 423 Interpretive Statements SINUS RHYTHM R-S TRANSITION ZONE IN V LEADS DISPLACED TO THE LEFT LVH WITH REPOLARIZATION ABNORMALITY QRS(T) CONTOUR ABNORMALITY CONSISTENT WITH INFERIOR INFARCT PROBABLY OLD ABNORMAL ECG RI6.02 No previous ECG available for comparison
== END 2021-05-29 22:50 | disposition home or self-care (01) ==
LOC: ER 19:26
DX: S01.01XA Laceration without foreign body of scalp, initial encounter (principal); Z91.040 Latex allergy status; W01.190A Fall on same level from slipping, tripping and stumbling with subsequent striking against furniture, initial encounter; Y93.89 Activity, other specified; Y92.89 Other specified places as the place of occurrence of the external cause; Y99.8 Other external cause status
CPT/HCPCS: 12002; 36415; 70450; 72125; 80053; 85025; 99285; J3490; 93005

== ENCOUNTER → 2021-07-29 | Outpatient (CLI) | payer MEDICARE, BC ==
[~2021-07-29] MED LIST changes: +IOHEXOL 180 MG/ML 10 ML VIAL. ONE; -SCOP1PAT11 TP; +SCOP1PAT12 TP; +methylPREDNISolone ACETATE 80 MG/ML VIAL. ONE
--- NOTE | 2021-07-29 13:08 | PDOC ---
Progress Note - Pain Clinic Date of Service: DOS: DATE: 07/29/21 TIME: 13:04 Diagnosis: Dx: Lumbar radiculopathy with lumbar degenerative disease and lumbar spinal stenosis with lumbar spondylosis and post lumbar laminectomy syndrome Cervical radiculopathy with cervical degenerative disc disease Bilateral knee joint pain with osteoarthritis History or Present Illness: HPI: 70-year-old male returns for follow-up status post bilateral knee joint injections May 27, 2021 patient reports about 50% improvement and is doing very well but his chief complaint today is now low back pain with pain not only in the right lower extremity as he has had but also in the left patient was a very tight in his hamstrings very aching and he reports it is "the worst pain I have ever had" patient reports that sharp and tight shooting cramping stabbing can be constant severe worse with walking standing changing positions patient is using a four-point walker to ambulate with him today as well. Patient reports has not slept in 7 days because of the pain is reports no loss of motor function but significant fatigability of the right leg and now the left leg is more painful to which is new for him. Patient reports no bowel or bladder incontinence rates the pain is a 10 on scale 10 at worst average and least in the last week and today. Physical Exam: VS: Blood pressure is 113/53 pulse 91 respirations 20 temperature is 98.8 F weight is 267 pounds. PE: PHYSICAL EXAMINATION: GENERAL: The patient is awake, alert, oriented, appropriate, very pleasant in demeanor HEENT: Shows normocephalic, atraumatic. Extraocular movements are intact and symmetrical. Oral cavity: Mucous membranes moist and pink. NECK: Shows anterior throat supple without palpable lymphadenopathy noted. Swallow reflex symmetrical. CHEST: Shows normal on inspection. Breath sounds are clear bilaterally, distant but no rales or rhonchi. HEART: Shows S1, S2 clear. No murmurs auscultated. ABDOMEN: Soft, nontender, nondistended, obese. No palpable organomegaly is noted. BACK: Shows spine grossly in the midline. Normal-appearing cervical lordotic curvature. There is increased thoracic kyphosis, some flattening of the lumbar lordotic curvature with well-healed surgical scar. Lumbar paraspinous muscles show symmetrical on inspection, on palpation shows some moderate tenderness diffusely throughout the upper, middle and lower distribution of the paraspinous muscles, but without specific trigger points, without radiation of pain. The patient has good rotational motion of the lumbar spine, both laterally as well as extension and flexion without significant difficulty. EXTREMITIES: Lower extremities show deep tendon reflexes 1+ in the patellar and tendo calcaneus tendons. Motor exam is four on a scale of 5 with right dorsiflexion, extension, quadriceps and hamstring flexion and four/5 on the left. Peripheral pulses are one posterior tibial. No peripheral edema is noted bilaterally. Lower extremities are warm and dry to touch, equal in color and appearance. SKIN: Shows warm and dry, good turgor. No edema. No sores, rashes or bruising throughout. Procedure: Procedure: Options discussed with patient. Patient's old chart was reviewed as his current medication regimen updated current review of systems updated today as well. We will proceed with a lumbar epidural steroid injection today with fluoroscopic guidance. Risks were discussed including but not limited to: Bleeding, infection, possibility of epidural hematoma and subsequent neurological compromise, dural puncture, headaches, spinal cord and/or nerve damage, side effects of steroid medication, and poor results regarding pain control. Patient understands and wished to proceed. Patient will return to clinic in approximate 2 weeks for follow-up, was counseled for appointment, activity level, and side effects beware of. Medication Injected: Med Injected: Procedure is lumbar epidural steroid injection under local anesthetic using sterile prep and drape at the L5-S1 level using C-arm fluoroscopic guidance in both AP and lateral views medications injected is 120 mg Depo-Medrol +10mL preservative-free normal saline and 2 mL contrast- condition at discharge is stable patient tolerated procedure well had no complications. Condition at Discharge: Condition at Discharge: Condition at discharge is stable, patient tolerated procedure well and had no complications. BIANCA DOAN MD Jul 29, 2021 13:08
--- NOTE | 2021-07-29 13:08 | PDOC4 ---
Procedure Note: ICD 10 Code: ICD 10 Code: M54.17 M4 8.07 M51.87 M 96.1 Procedure Note: Patient consented for lumbar epidural steroid injection with fluoroscopic guidance. Risks were discussed including but not limited to: Bleeding, infection, possibility of epidural hematoma and subsequent neurological compromise, dural puncture, headaches, spinal cord and/or nerve damage, side effects of steroid medication, and poor results regarding pain control. Patient understands and wished to proceed. Procedure is lumbar epidural steroid injection under local anesthetic using sterile prep and drape at the L5-S1 level using C-arm fluoroscopic guidance in both AP and lateral views medications injected is 120 mg Depo-Medrol +10mL preservative-free normal saline and 2 mL contrast- condition at discharge is stable patient tolerated procedure well had no complications. BIANCA DOAN MD Jul 29, 2021 13:08
== END | disposition home or self-care (01) ==
LOC: PNCL 11:34
PROVIDERS: ATTEND Anesthesiology
DX: M51.16 Intervertebral disc disorders with radiculopathy, lumbar region (principal); M48.061 Spinal stenosis, lumbar region without neurogenic claudication; M47.26 Other spondylosis with radiculopathy, lumbar region; M96.1 Postlaminectomy syndrome, not elsewhere classified; M17.0 Bilateral primary osteoarthritis of knee; M50.10 Cervical disc disorder with radiculopathy, unspecified cervical region; Z87.891 Personal history of nicotine dependence; Z79.82 Long term (current) use of aspirin; Z79.899 Other long term (current) drug therapy; Z72.89 Other problems related to lifestyle; Z91.040 Latex allergy status
CPT/HCPCS: 62323; J1040; Q9965

== ENCOUNTER 2021-08-10 19:32 | Inpatient (IN) | payer MEDICARE, BC ==
[~2021-08-10] VITALS: Ht 182.9 cm; Wt 117.3 kg
[~2021-08-10 19:32] MED LIST changes: -IOHEXOL 180 MG/ML 10 ML VIAL. ONE; -methylPREDNISolone ACETATE 80 MG/ML VIAL. ONE
[2021-08-10] MEDS ORDERED: methylPREDNISolone SOD SUCC PF 125 MG/2 ML VIAL. IV ONE (21:00)
[2021-08-10] MEDS ORDERED: fentaNYL PF VIAL 100 MCG/2 ML VIAL IVP ONE (21:00)
[2021-08-10 21:26] LABS: BASO # 0.1 x10^3/uL (0.0-0.2); BASO % 1 % (0-3); EOS # 0.1 x10^3/uL (0.0-0.7); EOS % 1 % (0-3); HEMOGLOBIN 13.8 g/dL (13.0-17.5); LYMPH # 1.8 x10^3/uL (1.0-4.8); LYMPH % 13 % (24-48); MEAN CORPUSCULAR HEMOGLOBIN 32 pg (25-35); MEAN CORPUSCULAR HGB CONC 35 g/dL (31-37); MEAN CORPUSCULAR VOLUME 91 fL (79-100); MONO # 1.2 x10^3/uL (0.0-1.1); MONO % 8 % (0-9); NEUT # 11.2 x10^3/uL (1.8-7.7); NEUT % 78 % (31-73); PLATELET COUNT 301 x10^3/uL (140-400); RED BLOOD COUNT 4.39 x10^6/uL (4.30-5.70); RED CELL DISTRIBUTION WIDTH 13.4 % (11.5-14.5); WHITE BLOOD COUNT 14.3 x10^3/uL (4.0-11.0)
[2021-08-10 21:38] LABS: CALCIUM 8.5 mg/dL (8.5-10.1); CREATININE 1.1 mg/dL (0.7-1.3); POTASSIUM 3.3 mmol/L (3.5-5.1)
[2021-08-10 21:42] LABS: ALBUMIN/GLOBULIN RATIO 0.9 (1.0-1.7); TOTAL BILIRUBIN 0.8 mg/dL (0.2-1.0); TOTAL PROTEIN 6.3 g/dL (6.4-8.2)
[2021-08-10] MEDS ORDERED: ALBUTEROL SULFATE 2.5 MG/3 ML NEBU. NEB ONE (22:00)
--- NOTE | 2021-08-10 22:39 | PHYS DOC ---
Past Medical History Past Surgical History: Other Additional Past Surgical Histo: BILATERAL SHOULDERS Smoking Status: Former Smoker Alcohol Use: None General Adult EDM: Chief Complaint: BACK PAIN OR INJURY HPI: HPI: Patient is a 70 year old male who presents with chronic low back pain with arthritis and bulging disks. He states that he has been to the [place] and here in the last week and over the weekend he was in so much pain he could not get out of bed. He states that he sees Dr. Copeland he states that he is going to get surgery but has to get the okay from his soap press feeder so he can get off of the Xarelto before he can have surgery done. Patient states his hydrocodone's are not working. He states he cannot stand up to walk. Rates his pain a 10 out of 10. He states it is sharp shooting and going down his legs bilaterally. He states he gets tingling in his legs. He denies loss of bowel bladder, focal weakness. Patient has a history of kidney stone, high cholesterol, hypertension, asthma, arthritis, chronic back pain, diabetes, depression. Review of Systems: Review of Systems: Constitutional: Denies fever or chills. [] Eyes: Denies change in visual acuity. [] HENT: Denies nasal congestion or sore throat. [] Respiratory: Denies cough or shortness of breath. [] Cardiovascular: Denies chest pain or edema. [] GI: Denies abdominal pain, nausea, vomiting, bloody stools or diarrhea. [] : Denies dysuria. [] Musculoskeletal: +Bilateral lower back pain, or denies joint pain. +Bilateral lower leg sharp shooting pain.[] Integument: Denies rash. [] Neurologic: Denies headache, focal weakness or sensory changes. +Intermittent tingling in leg bilaterally.[] Endocrine: Denies polyuria or polydipsia. [] Lymphatic: Denies swollen glands. [] Psychiatric: Denies depression or anxiety. [] Heart Score: C/O Chest Pain: No Current Medications: Current Medications Medications (Trade) Dose Ordered Sig/Yariel Start Time Stop Time Status Last Admin Dose Admin Albuterol Sulfate (Ventolin Neb Soln) 2.5 mg 1X ONCE 08/10/21 22:00 08/10/21 22:01 DC 08/10/21 21:52 2.5 MG Fentanyl Citrate (Fentanyl 2ml Vial) 75 mcg 1X ONCE 08/10/21 21:00 08/10/21 21:01 DC 08/10/21 21:05 75 MCG Methylprednisolone Sodium Succinate (SOLU-Medrol 125MG VIAL) 125 mg 1X ONCE 08/10/21 21:00 08/10/21 21:01 DC 08/10/21 21:15 125 MG Allergies: Allergies: Allergies Coded Allergies Type Severity Reaction Last Updated Verified latex Allergy Intermediate 04/10/20 Yes Physical Exam: PE: Constitutional: Well developed, well nourished, no acute distress, non-toxic appearance. [] HENT: Normocephalic, atraumatic, bilateral external ears normal, oropharynx moist, no oral exudates, nose normal. [] Eyes: PERRLA, EOMI, conjunctiva normal, no discharge. [] Neck: Normal range of motion, no tenderness, supple, no stridor. [] Cardiovascular:Heart rate regular rhythm, no murmur [] Lungs & Thorax: Bilateral breath sounds clear to auscultation [] Abdomen: Bowel sounds normal, soft, no tenderness, no masses, no pulsatile masses. [] Skin: Warm, dry, no erythema, no rash. [] Back: Bilateral lower back and midline tenderness, no CVA tenderness. [] Extremities: No tenderness, no cyanosis, no clubbing, ROM intact, no edema. [] Neurologic: Alert and oriented X 3, normal motor function, normal sensory function, no focal deficits noted. [] Psychologic: Affect normal, judgement normal, mood normal. [] Current Patient Data: Labs: Laboratory Tests Test 08/10/21 21:19 White Blood Count 14.3 x10^3/uL (4.0-11.0) H Red Blood Count 4.39 x10^6/uL (4.30-5.70) Hemoglobin 13.8 g/dL (13.0-17.5) Hematocrit 40.0 % (39.0-53.0) Mean Corpuscular Volume 91 fL (79-100) Mean Corpuscular Hemoglobin 32 pg (25-35) Mean Corpuscular Hemoglobin Concent 35 g/dL (31-37) Red Cell Distribution Width 13.4 % (11.5-14.5) Platelet Count 301 x10^3/uL (140-400) Neutrophils (%) (Auto) 78 % (31-73) H Lymphocytes (%) (Auto) 13 % (24-48) L Monocytes (%) (Auto) 8 % (0-9) Eosinophils (%) (Auto) 1 % (0-3) Basophils (%) (Auto) 1 % (0-3) Neutrophils # (Auto) 11.2 x10^3/uL (1.8-7.7) H Lymphocytes # (Auto) 1.8 x10^3/uL (1.0-4.8) Monocytes # (Auto) 1.2 x10^3/uL (0.0-1.1) H Eosinophils # (Auto) 0.1 x10^3/uL (0.0-0.7) Basophils # (Auto) 0.1 x10^3/uL (0.0-0.2) Sodium Level 138 mmol/L (136-145) Potassium Level 3.3 mmol/L (3.5-5.1) L Chloride Level 101 mmol/L (98-107) Carbon Dioxide Level 28 mmol/L (21-32) Anion Gap 9 (6-14) Blood Urea Nitrogen 19 mg/dL (8-26) Creatinine 1.1 mg/dL (0.7-1.3) Estimated GFR (Cockcroft-Gault) 66.0 BUN/Creatinine Ratio 17 (6-20) Glucose Level 109 mg/dL (70-99) H Calcium Level 8.5 mg/dL (8.5-10.1) Total Bilirubin 0.8 mg/dL (0.2-1.0) Aspartate Amino Transferase (AST) 14 U/L (15-37) L Alanine Aminotransferase (ALT) 22 U/L (16-63) Alkaline Phosphatase 62 U/L (46-116) Total Protein 6.3 g/dL (6.4-8.2) L Albumin 3.0 g/dL (3.4-5.0) L Albumin/Globulin Ratio 0.9 (1.0-1.7) L Laboratory Tests 08/10/21 21:19 Laboratory Tests 08/10/21 21:19 Vital Signs: Vital Signs Date Time Temp Pulse Resp B/P (MAP) Pulse Ox O2 Delivery O2 Flow Rate FiO2 08/10/21 21:59 95 Room Air 08/10/21 21:30 98 18 165/77 (106) 08/10/21 19:45 98.6 98.6 EKG: EKG: [] Radiology/Procedures: Radiology/Procedures: [] Course & Med Decision Making: Course & Med Decision Making Pertinent Labs and Imaging studies reviewed. (See chart for details) Patient is laying in the bed moving his legs in all extremities. He is alert and oriented x4. Speaks in full clear sentences. Tenderness of the lower back had midline and bilateral lower back. Sensations are intact. He can wiggle his toes. Skin pink warm and dry. Cap refill less than 2 seconds. No saddle paresthesia. He is neurologically intact. I called Dr. Dinorah García's nurse practitioner, and she stated that they saw him yesterday for the first time and she actually got the okay from his soap press feeder to take him off his Xarelto for 3 days so that they can give his surgery plan for hopefully this upcoming week. She states that he was ambulatory with a steady gait into their office yesterday. She states that I can change his pain medication to Percocets and maybe start him on a steroid p.o.. He has not lost his bowel and bladder. I spoke with the patient and told the patient I spoke with Raquel and that the plan would be for him to go home with Percocet and steroids and that she just got the soap press feeder okay for him to stop the Xarelto for 3 days. Patient and daughter then tell me that he is not taken his Xarelto since Monday. I did tell Raquel this and she states that when they saw him yesterday he acted as if he had been taking his Xarelto. The patient and the family and they want the patient to be admitted and daughter stated that the patient cannot even get up out of bed and she cannot get him up. Patient's daughter states her father is unable to get up in several EMS men had to lift him. After patient given the fentanyl and Solu-Medrol he states that that helped his back pain but he still having spasm. Patient yells out intermittently from spasm pain that goes down his legs. I called Raquel nurse practitioner back and she stated that they will be by to see him in the morning. [] Dragon Disclaimer: Geovani Disclaimer: This electronic medical record was generated, in whole or in part, using a voice recognition dictation system. Departure Departure Impression: Primary Impression: Intractable low back pain Additional Impression: Sciatic leg pain Disposition: ADMITTED INPATIENT Admitting Physician: CARLTON Condition: STABLE Referrals: ROBBY MONTANEZ (PCP) NEIL PIERRE APRN Aug 10, 2021 22:38
[2021-08-10] MEDS ORDERED: MORPHINE SULFATE 2 MG/ML INJ. IVP PRN (23:30)
[2021-08-10] MEDS ORDERED: KETOROLAC 30 MG/ML VIAL. IVP ONE (23:30)
[2021-08-10] MEDS ORDERED: diazePAM 2 MG TABLET PO ONE (23:30)
[2021-08-11] VITALS (7 sets, daily range): BP systolic 122–185; BP diastolic 67–111
[2021-08-11] MEDS ORDERED: LUTE1CAP PO (04:00)
[2021-08-11] MEDS ORDERED: CYAN100031 PO (04:00)
[2021-08-11] MEDS ORDERED: VENL75CA6 PO (04:00)
[2021-08-11] MEDS ORDERED: CETI10TA74 PO (04:00)
[2021-08-11] MEDS ORDERED: TAMS0.4C97 PO (04:00)
[2021-08-11] MEDS ORDERED: HYDR-2761 PO (04:00)
[2021-08-11] MEDS ORDERED: NICA30CA PO (04:00)
[2021-08-11] MEDS ORDERED: DICL1KIT14 TP (04:00)
[2021-08-11] MEDS ORDERED: METF500T16 PO (04:00)
[2021-08-11] MEDS ORDERED: CHOL10004 PO (04:00)
[2021-08-11] MEDS ORDERED: MONT10TA49 PO (04:00)
[2021-08-11] MEDS ORDERED: CARB15DR65 EACHEYE (04:00)
[2021-08-11] MEDS ORDERED: DOCU-109 PO (04:00)
[2021-08-11] MEDS ORDERED: HYDROcodone/APAP 5/325MG 1 TAB TABLET PO PRN (08:00)
[2021-08-11] MEDS ORDERED: ALBUTEROL SULFATE 2.5 MG/3 ML NEBU. NEB PRN ×2 (08:00→10:45)
[2021-08-11] MEDS ORDERED: POLYVINYL ALCOHOL 1.4% OPHTH SOLUTION 15ML BOTTLE. OU PRN (08:15)
[2021-08-11] MEDS ORDERED: DICLOFENAC SODIUM 1% TOPICAL GEL 100GM TUBE. TP PRN (08:15)
[2021-08-11] MEDS: ASPIRIN CHEWABLE 81 MG TABLET. PO SCH (08:28)
[2021-08-11] MEDS: VENLAFAXINE XR 37.5 MG CAP.ER.24H. PO SCH (08:28)
[2021-08-11] MEDS: CHOLECALCIFEROL (VITAMIN D3) 1,000 UNIT TABLET PO SCH ×2 (08:29→20:04)
[2021-08-11] MEDS: metFORMIN 500 MG TABLET PO SCH ×2 (08:30→17:46)
[2021-08-11] MEDS: SPIRONOLACTONE 25 MG TABLET PO SCH (08:30)
[2021-08-11] MEDS: DOCUSATE SODIUM 100 MG CAPSULE. PO SCH ×2 (08:30→20:04)
[2021-08-11] MEDS: CYANOCOBALAMIN (VITAMIN B-12) 1,000 MCG TABLET. PO SCH (08:30)
[2021-08-11] MEDS: CARVEDILOL 12.5 MG TABLET. PO SCH ×2 (08:30→17:47)
[2021-08-11] MEDS: TAMSULOSIN 0.4 MG CAP.ER.24H. PO SCH (08:31)
[2021-08-11] MEDS: PANTOPRAZOLE 40 MG TABLET.DR. PO SCH (08:31)
[2021-08-11] MEDS: POLYETHYLENE GLYCOL 3350 17 GM PACKET. PO SCH (08:32)
[2021-08-11] MEDS: CETIRIZINE HCL 10 MG TABLET. PO SCH (08:39)
--- NOTE | 2021-08-11 08:49 | PDOC1 ---
History and Physical Date of Admission Date of Admission DATE: 08/11/21 TIME: 08:39 Source Source: Chart review, Patient History of Present Illness History of Present Illness Mr. Buchanan is a 70 year old male admit from ER last night with intractable back pain. He has chronic low back pain with arthritis and bulging disks, has seen Dr. Short here in pain clinic every few months for the past 3+ years, and was seen there 07/29 for LESI, that he says gave him pain relief for about 6 hours. Pain is OK while lying flat, but movement cauases shooting pain down right leg, pain 10/10 with spasms, across lower abd. he has right lateral numbness to his upper thigh that he describes as chronic. NO loss of stool or urine incontinence, not much stool as he reports he has barely eaten in days due to the pain. Dr. Raymundo wanted him to see his building code inspector, Dr. Ruiz, to eval if he can go off Xarelto for a proceedure, but Mr. Buchanan stopped it himself for the past 4- 5 days. . He states that he has been to the [place] and here in the last week. Past Medical History Past Medical History kidney stone, high cholesterol, hypertension, asthma, arthritis, chronic back pain, diabetes, depression. Cardiovascular: HTN CENTRAL NERVOUS SYSTEM: CVA (4 years ago) Musculoskeletal: low back pain, Osteoarthritis, Other ENT: No pertinent hx Past Surgical History Past Surgical History LESI Family History Family History: No Significant, Heart Disease Social History Smoke: No ALCOHOL: rare Drugs: None Current Problem List Problem List Problems Medical Problems: (1) Intractable low back pain Status: Acute (2) Sciatic leg pain Status: Acute Current Medications Current Medications Current Medications Fentanyl Citrate (Fentanyl 2ml Vial) 75 mcg 1X ONCE IVP Last administered on 08/10/21at 21:05; Start 08/10/21 at 21:00; Stop 08/10/21 at 21:01; Status DC Methylprednisolone Sodium Succinate (SOLU-Medrol 125MG VIAL) 125 mg 1X ONCE IV Last administered on 08/10/21at 21:15; Start 08/10/21 at 21:00; Stop 08/10/21 at 21:01; Status DC Albuterol Sulfate (Ventolin Neb Soln) 2.5 mg 1X ONCE NEB Last administered on 08/10/21at 21:52; Start 08/10/21 at 22:00; Stop 08/10/21 at 22:01; Status DC Diazepam (Valium) 2 mg 1X ONCE PO Last administered on 08/11/21at 00:57; Start 08/10/21 at 23:30; Stop 08/10/21 at 23:31; Status DC Ketorolac Tromethamine (Toradol 30mg Vial) 30 mg 1X ONCE IVP Last administered on 08/11/21at 00:57; Start 08/10/21 at 23:30; Stop 08/10/21 at 23:31; Status DC Morphine Sulfate (Morphine Sulfate) 2 mg PRN Q2HR PRN IVP SEVERE PAIN 7-10 Last administered on 08/11/21at 03:06; Start 08/10/21 at 23:30; Stop 08/11/21 at 23:29 Albuterol Sulfate (Ventolin Neb Soln) 1 mg PRN Q4HRS PRN NEB SHORTNESS OF BREATH; Start 08/11/21 at 08:00 Aspirin (Aspirin Chewable) 81 mg DAILY PO ; Start 08/11/21 at 09:00 Atorvastatin Calcium (Lipitor) 40 mg QHS PO ; Start 08/11/21 at 21:00 Cetirizine HCl (ZyrTEC) 10 mg DAILY PO ; Start 08/11/21 at 09:00 Vitamin D (Vitamin D3) 1,000 unit BID PO ; Start 08/11/21 at 09:00 Docusate Sodium (Colace) 100 mg BID PO ; Start 08/11/21 at 09:00 Acetaminophen/ Hydrocodone Bitart (Lortab 5/325) 1 tab PRN Q6HRS PRN PO PAIN; Start 08/11/21 at 08:00 Metformin HCl (Glucophage) 500 mg BIDWMEALS PO ; Start 08/11/21 at 08:30 Montelukast Sodium (Singulair) 10 mg HS PO ; Start 08/11/21 at 21:00 Pantoprazole Sodium (Protonix) 40 mg DAILYAC PO ; Start 08/11/21 at 08:30 Polyethylene Glycol (miraLAX PACKET) 17 gm DAILY PO ; Start 08/11/21 at 09:00 Tamsulosin HCl (Flomax) 0.4 mg DAILY PO ; Start 08/11/21 at 09:00 Non-Formulary Medication (Budesonide/ Formoterol Fumarate (Symbicort 160-4.5 Mcg Inhaler)) 2 puff BID IH ; Start 08/11/21 at 09:00; Status UNV Glycerin/ Hypromellose/ Polyethylene (Artificial Tears) 1 drop PRN QID PRN OU DRY EYE; Start 08/11/21 at 08:15 Carvedilol (Coreg) 25 mg BIDWMEALS PO ; Start 08/11/21 at 08:30 Cyanocobalamin (Vitamin B-12) 1,000 mcg DAILY PO ; Start 08/11/21 at 09:00 Diclofenac Sodium (Voltaren) 1 jodie TID PRN PRN TP PAIN; Start 08/11/21 at 08:15 Fluticasone Propionate (Flonase) 2 spray DAILY NS ; Start 08/11/21 at 09:00 Non-Formulary Medication (Lutein/ Zeaxanthin (Lutein-Zeaxanthin 25-5 Mg Sfgl)) 1 each BID PO ; Start 08/11/21 at 09:00; Status UNV Amlodipine Besylate (Norvasc) 5 mg DAILY PO ; Start 08/11/21 at 09:00 Rivaroxaban (Xarelto) 20 mg DAILYWSUP PO ; Start 08/11/21 at 17:00 Non-Formulary Medication (Silodosin (Rapaflo)) 1 cap DAILY PO ; Start 08/11/21 at 09:00; Status UNV Spironolactone (Aldactone) 50 mg DAILY PO ; Start 08/11/21 at 09:00 Venlafaxine HCl (Effexor Xr) 75 mg DAILY PO ; Start 08/11/21 at 09:00 Budesonide (Pulmicort) 0.5 mg RTBID NEB ; Start 08/11/21 at 20:00 Albuterol Sulfate (Ventolin Neb Soln) 2.5 mg RTQID NEB ; Start 08/11/21 at 12:00 Active Scripts Active Reported Venlafaxine Hcl Er (Venlafaxine Hcl) 75 Mg Cap.er.24h 1 Cap PO DAILY Flomax (Tamsulosin Hcl) 0.4 Mg Cap.er.24h 1 Cap PO DAILY Nicardipine Hcl 30 Mg Capsule 30 Mg PO TID Lutein-Zeaxanthin 25-5 Mg Sfgl (Lutein/Zeaxanthin) 1 Each Capsule 1 Each PO BID Montelukast Sodium Tablet (Montelukast Sodium) 10 Mg Tablet 10 Mg PO HS Metformin Hcl 500 Mg Tablet 500 Mg PO BIDWMEALS Hydrocodone-Apap 5-325 (Hydrocodone Bit/Acetaminophen) 1 Tab Tablet 1 Tab PO PRN Q6HRS PRN Colace (Docusate Sodium) 100 Mg Capsule 1 Cap PO BID 30 Days Diclo Gel (Diclofenac Sodium) 1 Each Kit 1 Each TP TID PRN PRN B-12 (Cyanocobalamin (Vitamin B-12)) 1,000 Mcg Tablet.er 1 Tab PO DAILY 30 Days Vitamin D3 (Vitamin D) 25 Mcg Tablet 25 Mcg PO BID 1,000 UNITS = 25 MCG Zyrtec (Cetirizine Hcl) 10 Mg Tablet 1 Tab PO DAILY Thera Tears (Carboxymethylcellulose Sodium) 15 Ml Drops 1 Drop EACHEYE QID Miralax (Polyethylene Glycol 3350) 17 Gm Powd.pack 1 Packet PO DAILY Aspirin 81 Mg Tab.chew 1 Tab PO DAILY Symbicort 160-4.5 Mcg Inhaler (Budesonide/Formoterol Fumarate) 10.2 Gm Hfa.aer.ad 2 Puff IH BID Pantoprazole Sodium 40 Mg Tablet.dr 40 Mg PO Rapaflo (Silodosin) 8 Mg Capsule 1 Cap PO DAILY Atorvastatin Calcium 40 Mg Tablet 1 Tab PO DAILY Spironolactone 50 Mg Tablet 1 Tab PO DAILY Xarelto (Rivaroxaban) 20 Mg Tablet 20 Mg PO DAILY Carvedilol 25 Mg Tablet 25 Mg PO BIDWMEALS Flonase Allergy Relief (Fluticasone Propionate) 9.9 Ml [place].susp 2 Sprays NS DAILY Albuterol Sulfate Neb Soln (Albuterol Sulfate) 2.5 Mg/3 Ml Vial.neb 1 Vial NEB PRN Q4HRS Allergies Allergies: Coded Allergies: latex (Verified Allergy, Intermediate, 04/10/20) shellfish derived (Verified Allergy, Intermediate, hives, 08/11/21) strawberry (Verified Allergy, Intermediate, hives, 08/11/21) tomato (Verified Allergy, Intermediate, hives, 08/11/21) atorvastatin (Verified Adverse Reaction, Intermediate, muscle pain, ) lisinopril (Verified Adverse Reaction, Intermediate, cough, 08/11/21) ROS General: No: Chills, Night Sweats, Fatigue, Malaise, Appetite, Other PSYCHOLOGICAL ROS: No: Anxiety, Behavioral Disorder, Concentration difficultie, Decreased libido, Depression, Disorientation, Hallucinations, Hostility, Irritablity, Memory difficulties, Mood Swings, Obsessive thoughts, Physical abuse, Sexual abuse, Sleep disturbances, Suicidal ideation, Other Eyes: No Blurry vision, No Decreased vision, No Double vision, No Dry eyes, No Excessive tearing, No Eye Pain, No Itchy Eyes, No Loss of vision, No Photophobia, No Scotomata, No Uses contacts, No Uses glasses, No Other HEENT: No: Heacaches, Visual Changes, Hearing change, Nasal congestion, Nasal discharge, Oral lesions, Sinus pain, Sore Throat, Epistaxis, Sneezing, Snoring, Tinnitus, Vertigo, Vocal changes, Other ENDOCRINE: No: Breast Changes, Galactorrhea, Hair Pattern Changes, Hot Flashes, Malaise/lethargy, Mood Swings, Palpitations, Polydipsia/polyuria, Skin Changes, Temperature Intolerance, Unexpected Weight Changes, Other Respiratory: No: Cough, Hemoptysis, Orthopnea, Pleuritic Pain, Shortness of breath, SOB with excertion, Sputum Changes, Stridor, Tachypnea, Wheezing, Other Cardiovascular: No Chest Pain, No Palpitations, No Orthopnea, No Paroxysmal Noc. Dyspnea, No Edema, No Lt Headedness, No Other Gastrointestinal: No Nausea, No Vomiting, No Abdominal Pain, No Diarrhea, No Constipation, No Melena, No Hematochezia, No Other Genitourinary: No Dysuria, No Frequency, No Incontinence, No Hematuria, No Retention, No Discharge, No , No , No , No , No , No , No Musculoskeletal: Yes Gait Disturbance, Yes Joint Pain, Yes Joint Stiffness; No Joint Swelling, No Muscle Pain, No Muscular Weakness, No Pain In:, No Swelling In:, No Other Neurological: No Behavorial Changes, No Bowel/Bladder ControlChng, No Confusion, No Dizziness, No Gait Disturbance, No Headaches, No Impaired Coord/balance, No Memory Loss, No Numbness/Tingling, No Seizures, No Speech Problems, No Tremors, No Visual Changes, No Weakness, No Other Skin: Yes Dry Skin Physical Exam General: Alert, Oriented X3, mild distress, moderate distress HEENT: Atraumatic, PERRLA, EOMI Lungs: Clear to auscultation Heart: S1S2, RRR Extremities: No clubbing, No edema, Normal pulses Skin: No rashes, No significant lesion Neuro: Normal gait, Normal speech, Sensation intact Psych/Mental Status: Mental status NL, Mood NL Vitals Vitals Vital Signs Date Time Temp Pulse Resp B/P (MAP) Pulse Ox O2 Delivery O2 Flow Rate FiO2 08/11/21 07:00 97.8 69 20 185/111 (135) 90 Room Air 97.8 Labs Labs Laboratory Tests Test 08/10/21 21:19 White Blood Count 14.3 x10^3/uL (4.0-11.0) Red Blood Count 4.39 x10^6/uL (4.30-5.70) Hemoglobin 13.8 g/dL (13.0-17.5) Hematocrit 40.0 % (39.0-53.0) Mean Corpuscular Volume 91 fL (79-100) Mean Corpuscular Hemoglobin 32 pg (25-35) Mean Corpuscular Hemoglobin Concent 35 g/dL (31-37) Red Cell Distribution Width 13.4 % (11.5-14.5) Platelet Count 301 x10^3/uL (140-400) Neutrophils (%) (Auto) 78 % (31-73) Lymphocytes (%) (Auto) 13 % (24-48) Monocytes (%) (Auto) 8 % (0-9) Eosinophils (%) (Auto) 1 % (0-3) Basophils (%) (Auto) 1 % (0-3) Neutrophils # (Auto) 11.2 x10^3/uL (1.8-7.7) Lymphocytes # (Auto) 1.8 x10^3/uL (1.0-4.8) Monocytes # (Auto) 1.2 x10^3/uL (0.0-1.1) Eosinophils # (Auto) 0.1 x10^3/uL (0.0-0.7) Basophils # (Auto) 0.1 x10^3/uL (0.0-0.2) Sodium Level 138 mmol/L (136-145) Potassium Level 3.3 mmol/L (3.5-5.1) Chloride Level 101 mmol/L (98-107) Carbon Dioxide Level 28 mmol/L (21-32) Anion Gap 9 (6-14) Blood Urea Nitrogen 19 mg/dL (8-26) Creatinine 1.1 mg/dL (0.7-1.3) Estimated GFR (Cockcroft-Gault) 66.0 BUN/Creatinine Ratio 17 (6-20) Glucose Level 109 mg/dL (70-99) Calcium Level 8.5 mg/dL (8.5-10.1) Total Bilirubin 0.8 mg/dL (0.2-1.0) Aspartate Amino Transf (AST/SGOT) 14 U/L (15-37) Alanine Aminotransferase (ALT/SGPT) 22 U/L (16-63) Alkaline Phosphatase 62 U/L (46-116) Total Protein 6.3 g/dL (6.4-8.2) Albumin 3.0 g/dL (3.4-5.0) Albumin/Globulin Ratio 0.9 (1.0-1.7) Laboratory Tests Test 08/10/21 21:19 White Blood Count 14.3 x10^3/uL (4.0-11.0) Red Blood Count 4.39 x10^6/uL (4.30-5.70) Hemoglobin 13.8 g/dL (13.0-17.5) Hematocrit 40.0 % (39.0-53.0) Mean Corpuscular Volume 91 fL (79-100) Mean Corpuscular Hemoglobin 32 pg (25-35) Mean Corpuscular Hemoglobin Concent 35 g/dL (31-37) Red Cell Distribution Width 13.4 % (11.5-14.5) Platelet Count 301 x10^3/uL (140-400) Neutrophils (%) (Auto) 78 % (31-73) Lymphocytes (%) (Auto) 13 % (24-48) Monocytes (%) (Auto) 8 % (0-9) Eosinophils (%) (Auto) 1 % (0-3) Basophils (%) (Auto) 1 % (0-3) Neutrophils # (Auto) 11.2 x10^3/uL (1.8-7.7) Lymphocytes # (Auto) 1.8 x10^3/uL (1.0-4.8) Monocytes # (Auto) 1.2 x10^3/uL (0.0-1.1) Eosinophils # (Auto) 0.1 x10^3/uL (0.0-0.7) Basophils # (Auto) 0.1 x10^3/uL (0.0-0.2) Sodium Level 138 mmol/L (136-145) Potassium Level 3.3 mmol/L (3.5-5.1) Chloride Level 101 mmol/L (98-107) Carbon Dioxide Level 28 mmol/L (21-32) Anion Gap 9 (6-14) Blood Urea Nitrogen 19 mg/dL (8-26) Creatinine 1.1 mg/dL (0.7-1.3) Estimated GFR (Cockcroft-Gault) 66.0 BUN/Creatinine Ratio 17 (6-20) Glucose Level 109 mg/dL (70-99) Calcium Level 8.5 mg/dL (8.5-10.1) Total Bilirubin 0.8 mg/dL (0.2-1.0) Aspartate Amino Transf (AST/SGOT) 14 U/L (15-37) Alanine Aminotransferase (ALT/SGPT) 22 U/L (16-63) Alkaline Phosphatase 62 U/L (46-116) Total Protein 6.3 g/dL (6.4-8.2) Albumin 3.0 g/dL (3.4-5.0) Albumin/Globulin Ratio 0.9 (1.0-1.7) VTE Prophylaxis Ordered VTE Prophylaxis Devices: Yes VTE Pharmacological Prophylaxi: No Assessment/Plan Assessment/Plan Intractable back pain, unable to ambulate, consult Pain clinic and Neurosurg who had been following, Prior CVA, minimal right residual, mostly sensory, has been taking Xarelto to prevent further CVA, he has been having this on hold DM2 obese, htn depression, anxiety Justifications for Admission Other Justification ZEKE BARRAGAN MD Aug 11, 2021 08:49
[2021-08-11] MEDS: FLUTICASONE 50MCG/NASAL SPRAY 16GM BOTTLE. NS SCH (08:50)
[2021-08-11] MEDS: HYDROcodone/APAP 10/325 1 TAB TABLET PO PRN ×2 (08:53→17:49)
[2021-08-11] MEDS ORDERED: SILODOSIN PO SCH (09:00)
[2021-08-11] MEDS ORDERED: ZEAXANTHIN PO SCH (09:00)
[2021-08-11] MEDS ORDERED: LUTEIN PO SCH (09:00)
[2021-08-11] MEDS ORDERED: NON FORMULARY ITEM (Budesonide/Formoterol Fumarate (Symbicort 160-4.5 Mcg Inhaler) 2 PUFF) IH SCH (09:00)
[2021-08-11] MEDS ORDERED: BUDE10.2 IH (10:29)
[2021-08-11] MEDS ORDERED: ALBU2.5V8 INH (10:29)
[2021-08-11] MEDS: ALBUTEROL SULFATE 2.5 MG/3 ML NEBU. NEB SCH ×3 (11:23→19:42)
--- NOTE | 2021-08-11 15:10 | PDOC ---
Provider Note Date of Service: DATE: 08/11/21 TIME: 15:01 Provider Note Patient was seen and examined seen in office Monday and surgery was discussed admitted overnight with increased pain MRI with lateral stenosis at L4-5, L5-S1 on the right along with a large central disc herniation behind the body of L5. He has had previous surgery at L5- S1 I plan to decompress L4-5, L5-S1 on the right as well as a laminectomy of L5 in attempt to remove the large central disc safely discussed risks in detail including the risk that surgery may not help or he could be worse . We also discussed risk of infection. discussed with patient and family at length all questions answered we did receive cardiac clearance from Dr. Gurpreet Harman. Patient reports that he stopped Xarelto on Monday. plan for surgery tomorrow. Justifications for Admission Other Justification DESIRAE IRVIN MD Aug 11, 2021 15:10
[2021-08-11] MEDS ORDERED: RIVAROXABAN 10 MG TABLET. PO SCH (17:00)
--- NOTE | 2021-08-11 19:11 | NUR ---
pt has received both of his covid vaccinations ([place]). Daughter had taken his immunization card home. she is bringing the card up before pt has surgery tommorow. Pt has a photo copy of the card on his phone. He sent the copy to my email address. waiting to receive it
[2021-08-11] MEDS: BUDESONIDE 0.5 MG/2 ML NEBU. NEB SCH (19:42)
[2021-08-11] MEDS: MONTELUKAST SODIUM 10 MG TABLET. PO SCH (20:04)
[2021-08-11] MEDS: ATORVASTATIN CALCIUM 40 MG TABLET. PO SCH (20:04)
[2021-08-12] VITALS (12 sets, daily range): BP systolic 160–181; BP diastolic 77–102
[2021-08-12] MEDS: HYDROcodone/APAP 10/325 1 TAB TABLET PO PRN (03:42)
[2021-08-12] MEDS ORDERED: ceFAZolin SODIUM 1 GM in IV NORMAL SALINE 1000ML BAG 1,000 ML IRR ONE (06:00)
[2021-08-12] MEDS ORDERED: HYDROmorphone 2 MG/ML VIAL IVP PRN (06:00)
[2021-08-12] MEDS ORDERED: fentaNYL PF VIAL 100 MCG/2 ML VIAL IVP PRN ×2 (06:00)
[2021-08-12] MEDS ORDERED: PROCHLORPERAZINE 10 MG/2 ML VIAL. IVP PRN (06:00)
[2021-08-12] MEDS ORDERED: IV RINGERS,LACTATED 1000ML 1,000 ML IV SCH (06:00)
[2021-08-12] MEDS ORDERED: KETOROLAC 60 MG/2 ML VIAL. ONE (07:20)
[2021-08-12] MEDS ORDERED: BUPIVACAINE-EPI 0.5%-1:200000 MPF 30 ML VIAL. ONE (07:20)
[2021-08-12] MEDS ORDERED: GELATIN SPONGE SIZE 100. ONE (07:20)
[2021-08-12] MEDS ORDERED: THROMBIN TOPICAL 20,000 UNIT SPRAY.SYRN KIT TP ONE (07:20)
[2021-08-12] MEDS: BUDESONIDE 0.5 MG/2 ML NEBU. NEB SCH ×2 (07:28→20:22)
[2021-08-12] MEDS: ALBUTEROL SULFATE 2.5 MG/3 ML NEBU. NEB SCH ×4 (07:28→20:22)
[2021-08-12] MEDS: PANTOPRAZOLE 40 MG TABLET.DR. PO SCH (07:30)
[2021-08-12] MEDS: CARVEDILOL 12.5 MG TABLET. PO SCH ×2 (08:00→18:20)
[2021-08-12] MEDS: metFORMIN 500 MG TABLET PO SCH ×2 (08:00→17:00)
[2021-08-12] MEDS ORDERED: MORPHINE SULFATE 2 MG/ML INJ. ONE ×2 (08:17→16:50)
[2021-08-12] MEDS ORDERED: MORPHINE SULFATE 2 MG/ML INJ. IVP ONE (08:30)
[2021-08-12] MEDS: SPIRONOLACTONE 25 MG TABLET PO SCH (09:00)
[2021-08-12] MEDS: CETIRIZINE HCL 10 MG TABLET. PO SCH (09:00)
[2021-08-12] MEDS: ASPIRIN CHEWABLE 81 MG TABLET. PO SCH (09:00)
[2021-08-12] MEDS: FLUTICASONE 50MCG/NASAL SPRAY 16GM BOTTLE. NS SCH (09:00)
[2021-08-12] MEDS: TAMSULOSIN 0.4 MG CAP.ER.24H. PO SCH (09:00)
[2021-08-12] MEDS: VENLAFAXINE XR 37.5 MG CAP.ER.24H. PO SCH (09:00)
[2021-08-12] MEDS: CHOLECALCIFEROL (VITAMIN D3) 1,000 UNIT TABLET PO SCH ×2 (09:00→21:55)
[2021-08-12] MEDS: POLYETHYLENE GLYCOL 3350 17 GM PACKET. PO SCH (09:00)
[2021-08-12] MEDS: CYANOCOBALAMIN (VITAMIN B-12) 1,000 MCG TABLET. PO SCH (09:00)
[2021-08-12] MEDS: DOCUSATE SODIUM 100 MG CAPSULE. PO SCH ×2 (09:00→21:55)
[2021-08-12] MEDS ORDERED: HYDROmorphone 2 MG/ML VIAL ONE (09:01)
[2021-08-12] MEDS ORDERED: HYDROmorphone 2 MG/ML VIAL IM ONE (09:30)
[2021-08-12] MEDS ORDERED: PROPOFOL 50 ML IV ONE ×2 (09:48→12:46)
[2021-08-12] MEDS ORDERED: PROPOFOL 10 MG/ML (20ML) VIAL. IV ONE (09:48)
[2021-08-12] MEDS ORDERED: PHENYLEPHRINE 10 MG/ML VIAL. ONE ×2 (09:55→14:27)
[2021-08-12] MEDS ORDERED: GLYCOPYRROLATE 1 MG/5 ML VIAL. ONE (10:00)
[2021-08-12] MEDS ORDERED: HYDROmorphone 2 MG/ML VIAL IVP ONE (10:00)
[2021-08-12] MEDS ORDERED: DEXAMETHASONE SOD PHOS 4 MG/ML VIAL ONE (10:00)
[2021-08-12] MEDS ORDERED: LIDOCAINE 2% PF 5 ML VIAL. ONE (10:02)
[2021-08-12] MEDS ORDERED: ROCURONIUM 50 MG/5 ML VIAL. ONE (10:02)
[2021-08-12] MEDS ORDERED: REMIFENTANIL 2 MG VIAL. IV ONE (11:14)
[2021-08-12] MEDS ORDERED: IPRATRPIUM/ALBUTEROL 0.5/2.5MG 3 ML NEBU. NEB ONE (11:15)
[2021-08-12] MEDS ORDERED: IPRATRPIUM/ALBUTEROL 0.5/2.5MG 3 ML NEBU. ONE (11:17)
--- NOTE | 2021-08-12 11:50 | NUR ---
SW following. Discussed with RN, pt from home with family, room air, cardiac diet. Pt having surgery today. RN advised no SW needs at this time. SW will continue to follow.
[2021-08-12] MEDS ORDERED: ePHEDrine PF IN SALINE 50 MG/10 ML SYRINGE. IV ONE (12:21)
[2021-08-12] MEDS ORDERED: REMIFENTANIL 1 MG VIAL. IV ONE ×2 (13:43→15:06)
[2021-08-12] MEDS ORDERED: SEVOFLURANE 61 TO 120 MINUTES. IH ONE (14:35)
[2021-08-12] MEDS ORDERED: NEOSTIGMINE METHYLSULFATE 5 MG/5 ML SYRINGE. ONE (14:36)
[2021-08-12] MEDS ORDERED: ONDANSETRON PF 4 MG/2 ML VIAL. ONE (14:49)
[2021-08-12] MEDS ORDERED: ACETAMINOPHEN 325 MG TABLET. PO PRN (16:00)
[2021-08-12] MEDS ORDERED: CALCIUM CARBONATE 500 MG TAB.CHEW PO PRN (16:00)
[2021-08-12] MEDS ORDERED: NALOXONE 0.4 MG/ML VIAL. IV PRN (16:00)
[2021-08-12] MEDS ORDERED: MAG HYDROX/ALUMINUM HYD/SIMETH 30 ML ORAL.SUSP PO PRN (16:00)
[2021-08-12] MEDS ORDERED: diphenhydrAMINE HCL 25 MG CAPSULE PO PRN (16:00)
[2021-08-12] MEDS ORDERED: 0.9 % SODIUM CHLORIDE 10 ML DISP.SYRIN. IV PRN (16:00)
[2021-08-12] MEDS ORDERED: MAGNESIUM HYDROXIDE 2,400 MG/30 ML ORAL.SUSP. PO PRN (16:00)
--- NOTE | 2021-08-12 16:36 | PDOC ---
[employer] PROGRESS NOTE Date of Service DOS: DATE: 08/12/21 TIME: 16:36 Chief Complaint Chief Complaint Intractable back pain, unable to ambulate, consult Pain clinic and Neurosurg who had been following, Prior CVA, minimal right residual, mostly sensory, has been taking Xarelto to prevent further CVA, he has been having this on hold DM2 obese, htn depression, anxiety History of Present Illness History of Present Illness surgery today, decompression and laminectomy Vitals/I&O Vitals/I&O: Vital Signs Date Time Temp Pulse Resp B/P (MAP) Pulse Ox O2 Delivery O2 Flow Rate FiO2 08/12/21 16:15 64 18 190/85 99 Simple Mask 6 08/12/21 16:02 98.1 98.1 I & O 08/11/21 08/11/21 08/12/21 15:00 23:00 07:00 Intake Total 320 ml 250 ml 0 ml Output Total 200 ml 550 ml Balance 120 ml 250 ml -550 ml Physical Exam General: Alert, Oriented X3, mild distress, moderate distress Extremities: No clubbing, No edema, Normal pulses Skin: No rashes, No significant lesion Labs Labs: Laboratory Tests Test 08/12/21 09:24 08/12/21 16:20 Glucose (Fingerstick) 111 mg/dL (70-99) 105 mg/dL (70-99) Assessment and Plan Assessmemt and Plan Problems Medical Problems: (1) Intractable low back pain Status: Acute (2) Sciatic leg pain Status: Acute Comment Review of Relevant I have reviewed the following items beau (where applicable) has been applied. Medications: Current Medications Medications (Trade) Dose Ordered Sig/Yariel Route PRN Reason Start Time Stop Time Status Last Admin Dose Admin Atorvastatin Calcium (Lipitor) 40 mg QHS PO 08/11/21 21:00 08/11/21 20:04 Montelukast Sodium (Singulair) 10 mg HS PO 08/11/21 21:00 08/11/21 20:04 Budesonide (Pulmicort) 0.5 mg RTBID NEB 08/11/21 20:00 08/12/21 07:28 Cefazolin Sodium/ Dextrose 50 ml @ 100 mls/hr 1X PREOP PRN IV PRIOR TO PROCEDURE 08/12/21 06:00 08/12/21 18:00 08/12/21 12:12 Ringer's Solution 1,000 ml @ 30 mls/hr Q24H IV 08/12/21 06:00 08/12/21 17:59 08/12/21 06:20 Cefazolin Sodium 1 gm/Sodium Chloride 1,000 ml @ 1,000 mls/hr 1X ONCE IRR 08/12/21 06:00 08/12/21 06:59 DC 08/12/21 12:41 Gelatin (Gelfoam Size 100) 1 each STK-MED ONCE .ROUTE 08/12/21 07:20 08/12/21 07:21 DC 08/12/21 12:41 Bupivacaine HCl/ Epinephrine Bitart (Sensorcain-Epi 0.5%-1:126329 Mpf) 30 ml STK-MED ONCE .ROUTE 08/12/21 07:20 08/12/21 07:21 DC 08/12/21 12:41 Ketorolac Tromethamine (Toradol Im) 60 mg STK-MED ONCE .ROUTE 08/12/21 07:20 08/12/21 07:21 DC 08/12/21 12:41 Thrombin 20,000 unit STK-MED ONCE TP 08/12/21 07:20 08/12/21 07:21 DC 08/12/21 12:41 Morphine Sulfate (Morphine Sulfate) 2 mg 1X ONCE IVP 08/12/21 08:30 08/12/21 08:31 DC 08/12/21 08:23 Hydromorphone HCl (Dilaudid) 2 mg 1X ONCE IVP 08/12/21 10:00 08/12/21 10:01 DC 08/12/21 09:57 Albuterol/ Ipratropium (Duoneb) 3 ml 1X ONCE NEB 08/12/21 11:15 08/12/21 11:17 DC 08/12/21 11:20 Justifications for Admission Other Justification ZEKE BARRAGAN MD Aug 12, 2021 16:36
[2021-08-12] MEDS: MORPHINE SULFATE 2 MG/ML INJ. IVP PRN ×2 (16:42→16:52)
[2021-08-12] MEDS ORDERED: DOCUSATE SODIUM 100 MG CAPSULE. PO SCH (21:00)
[2021-08-12] MEDS: MONTELUKAST SODIUM 10 MG TABLET. PO SCH (21:56)
[2021-08-12] MEDS: ATORVASTATIN CALCIUM 40 MG TABLET. PO SCH (21:56)
[2021-08-13] MEDS: HYDROcodone/APAP 10/325 1 TAB TABLET PO PRN ×4 (02:34→19:20)
[2021-08-13 03:09] VITALS: BP 163/74
[2021-08-13 07:00] VITALS: BP 177/92
[2021-08-13] MEDS: BUDESONIDE 0.5 MG/2 ML NEBU. NEB SCH ×2 (07:32→21:28)
[2021-08-13] MEDS: ALBUTEROL SULFATE 2.5 MG/3 ML NEBU. NEB SCH ×4 (07:33→21:28)
[2021-08-13] MEDS: PANTOPRAZOLE 40 MG TABLET.DR. PO SCH ×2 (07:41→08:48)
[2021-08-13] MEDS: FLUTICASONE 50MCG/NASAL SPRAY 16GM BOTTLE. NS SCH (08:45)
[2021-08-13] MEDS: CYANOCOBALAMIN (VITAMIN B-12) 1,000 MCG TABLET. PO SCH (08:46)
[2021-08-13] MEDS: SPIRONOLACTONE 25 MG TABLET PO SCH (08:46)
[2021-08-13] MEDS: CHOLECALCIFEROL (VITAMIN D3) 1,000 UNIT TABLET PO SCH ×2 (08:46→20:22)
[2021-08-13] MEDS: ASPIRIN CHEWABLE 81 MG TABLET. PO SCH (08:47)
[2021-08-13] MEDS: VENLAFAXINE XR 37.5 MG CAP.ER.24H. PO SCH (08:47)
[2021-08-13] MEDS: TAMSULOSIN 0.4 MG CAP.ER.24H. PO SCH (08:47)
[2021-08-13] MEDS: CARVEDILOL 12.5 MG TABLET. PO SCH ×2 (08:47→16:53)
[2021-08-13] MEDS: DOCUSATE SODIUM 100 MG CAPSULE. PO SCH ×2 (08:48→20:22)
[2021-08-13] MEDS: CETIRIZINE HCL 10 MG TABLET. PO SCH (08:49)
[2021-08-13] MEDS: POLYETHYLENE GLYCOL 3350 17 GM PACKET. PO SCH (08:49)
[2021-08-13] MEDS: metFORMIN 500 MG TABLET PO SCH ×2 (08:49→16:52)
--- NOTE | 2021-08-13 10:12 | NUR ---
SW following. Discussed with RN, pt from home with family, 2L (after surgery, RN titrating), clear liquid diet. RN checking on PT/OT. Pt had surgery on 08/12. SW will continue to follow.
[2021-08-13 11:00] VITALS: BP 155/62
--- NOTE | 2021-08-13 14:19 | PDOC ---
[employer] PROGRESS NOTE Date of Service DOS: DATE: 08/13/21 TIME: 14:18 Chief Complaint Chief Complaint Intractable back pain, unable to ambulate, consult Pain clinic and Neurosurg who had been following, Prior CVA, minimal right residual, mostly sensory, has been taking Xarelto to prevent further CVA, he has been having this on hold DM2 obese, htn depression, anxiety History of Present Illness History of Present Illness surgery done yesterday, pain better, feels sore today s, s/p surg decompression and laminectomy OOB to chair will advance diet, start PT and OT, neurosurg following Vitals/I&O Vitals/I&O: Vital Signs Date Time Temp Pulse Resp B/P (MAP) Pulse Ox O2 Delivery O2 Flow Rate FiO2 08/13/21 13:40 Room Air 08/13/21 13:11 94 08/13/21 11:00 98.2 82 18 155/62 (93) 2.0 98.2 I & O 08/12/21 08/12/21 08/13/21 15:00 23:00 07:00 Intake Total 0 ml 1250 ml 480 ml Output Total 830 ml 450 ml Balance 0 ml 420 ml 30 ml Physical Exam General: Alert, Oriented X3, mild distress, moderate distress Heart: Gallops Extremities: No clubbing, No edema, Normal pulses Skin: No rashes, No significant lesion Labs Labs: Laboratory Tests Test 08/12/21 16:20 Glucose (Fingerstick) 105 mg/dL (70-99) Assessment and Plan Assessmemt and Plan Problems Medical Problems: (1) Intractable low back pain Status: Acute (2) Sciatic leg pain Status: Acute Comment Review of Relevant I have reviewed the following items beau (where applicable) has been applied. Medications: Current Medications Medications (Trade) Dose Ordered Sig/Yariel Route PRN Reason Start Time Stop Time Status Last Admin Dose Admin Acetaminophen/ Hydrocodone Bitart (Lortab 10) 1 tab PRN Q4HRS PRN PO SEVERE PAIN 08/13/21 13:00 08/13/21 13:11 Justifications for Admission Other Justification ZEKE BARRAGAN MD Aug 13, 2021 14:19
--- NOTE | 2021-08-13 14:59 | PDOC ---
PROGRESS NOTES Date of Service DATE: 08/13/21 TIME: 14:57 Subjective Subjective POD #1 S/P laminectomy / microdiscectomy L4-5, L5- S1 Sitting up in chair right leg pain improved, now sore Objective Objective Vital Signs Date Time Temp Pulse Resp B/P (MAP) Pulse Ox O2 Delivery O2 Flow Rate FiO2 08/13/21 13:40 Room Air 08/13/21 13:11 94 08/13/21 11:00 98.2 82 18 155/62 (93) 2.0 98.2 Intake and Output 08/13/21 07:00 Intake Total 1730 ml Output Total 1280 ml Balance 450 ml Intake Oral 480 ml IV Total 1250 ml Output Urine Total 1250 ml Estimated Blood Loss 30 ml Physical Exam General: Alert, Oriented X3, Cooperative MUSCULOSKELETAL: Other (BUSTOS) Neuro: Normal speech Skin: Other (dressing dry and intact) Assessment Assessment Problems Medical Problems: (1) Intractable low back pain Status: Acute (2) Sciatic leg pain Status: Acute Plan Plan of Care continue PT will need SNF encouraged increased activity as tolerated Comment Review of Relevant I have reviewed the following items beau (where applicable) has been applied. Labs Laboratory Tests Test 08/12/21 09:24 08/12/21 16:20 Glucose (Fingerstick) 111 mg/dL (70-99) 105 mg/dL (70-99) Laboratory Tests Test 08/12/21 16:20 Glucose (Fingerstick) 105 mg/dL (70-99) Medications Current Medications Fentanyl Citrate (Fentanyl 2ml Vial) 75 mcg 1X ONCE IVP Last administered on 08/10/21at 21:05; Start 08/10/21 at 21:00; Stop 08/10/21 at 21:01; Status DC Methylprednisolone Sodium Succinate (SOLU-Medrol 125MG VIAL) 125 mg 1X ONCE IV Last administered on 08/10/21at 21:15; Start 08/10/21 at 21:00; Stop 08/10/21 at 21:01; Status DC Albuterol Sulfate (Ventolin Neb Soln) 2.5 mg 1X ONCE NEB Last administered on 08/10/21at 21:52; Start 08/10/21 at 22:00; Stop 08/10/21 at 22:01; Status DC Diazepam (Valium) 2 mg 1X ONCE PO Last administered on 08/11/21at 00:57; Start 08/10/21 at 23:30; Stop 08/10/21 at 23:31; Status DC Ketorolac Tromethamine (Toradol 30mg Vial) 30 mg 1X ONCE IVP Last administered on 08/11/21at 00:57; Start 08/10/21 at 23:30; Stop 08/10/21 at 23:31; Status DC Morphine Sulfate (Morphine Sulfate) 2 mg PRN Q2HR PRN IVP SEVERE PAIN 7-10 Last administered on 08/11/21at 03:06; Start 08/10/21 at 23:30; Stop 08/11/21 at 23:29; Status DC Albuterol Sulfate (Ventolin Neb Soln) 1 mg PRN Q4HRS PRN NEB SHORTNESS OF BREATH; Start 08/11/21 at 08:00; Stop 08/11/21 at 10:45; Status DC Aspirin (Aspirin Chewable) 81 mg DAILY PO Last administered on 08/13/21 08:47; Start 08/11/21 at 09:00 Atorvastatin Calcium (Lipitor) 40 mg QHS PO Last administered on 08/12/21 21:56; Start 08/11/21 at 21:00 Cetirizine HCl (ZyrTEC) 10 mg DAILY PO Last administered on 08/13/21 08:49; Start 08/11/21 at 09:00 Vitamin D (Vitamin D3) 1,000 unit BID PO Last administered on 08/13/21 08:46; Start 08/11/21 at 09:00 Docusate Sodium (Colace) 100 mg BID PO Last administered on 08/13/21 08:48; Start 08/11/21 at 09:00 Acetaminophen/ Hydrocodone Bitart (Lortab 5/325) 1 tab PRN Q6HRS PRN PO MODERATE PAIN; Start 08/11/21 at 08:00 Metformin HCl (Glucophage) 500 mg BIDWMEALS PO Last administered on 08/13/21 08:49; Start 08/11/21 at 08:30 Montelukast Sodium (Singulair) 10 mg HS PO Last administered on 08/12/21 21:56; Start 08/11/21 at 21:00 Pantoprazole Sodium (Protonix) 40 mg DAILYAC PO Last administered on 10/15/21at 08:48; Start 08/11/21 at 08:30 Polyethylene Glycol (miraLAX PACKET) 17 gm DAILY PO Last administered on 08/13/21 08:49; Start 08/11/21 at 09:00 Tamsulosin HCl (Flomax) 0.4 mg DAILY PO Last administered on 08/13/21 08:47; Start 08/11/21 at 09:00 Non-Formulary Medication (Budesonide/ Formoterol Fumarate (Symbicort 160-4.5 Mcg Inhaler)) 2 puff BID IH ; Start 08/11/21 at 09:00; Status UNV Glycerin/ Hypromellose/ Polyethylene (Artificial Tears) 1 drop PRN QID PRN OU DRY EYE; Start 08/11/21 at 08:15 Carvedilol (Coreg) 25 mg BIDWMEALS PO Last administered on 08/13/21 08:47; Start 08/11/21 at 08:30 Cyanocobalamin (Vitamin B-12) 1,000 mcg DAILY PO Last administered on 08/13/21at 08:46; Start 08/11/21 at 09:00 Diclofenac Sodium (Voltaren) 1 jodie TID PRN PRN TP PAIN; Start 08/11/21 at 0 8:15 Fluticasone Propionate (Flonase) 2 spray DAILY NS Last administered on 08/13/21at 08:45; Start 08/11/21 at 09:00 Non-Formulary Medication (Lutein/ Zeaxanthin (Lutein-Zeaxanthin 25-5 Mg Sfgl)) 1 each BID PO ; Start 08/11/21 at 09:00; Status UNV Amlodipine Besylate (Norvasc) 5 mg DAILY PO Last administered on 08/13/21at 08:48; Start 08/11/21 at 09:00 Rivaroxaban (Xarelto) 20 mg DAILYWSUP PO ; Start 08/11/21 at 17:00; Stop 08/11/21 at 08:28; Status DC Non-Formulary Medication (Silodosin (Rapaflo)) 1 cap DAILY PO ; Start 08/11/21 at 09:00; Status UNV Spironolactone (Aldactone) 50 mg DAILY PO Last administered on 08/13/21at 08:46; Start 08/11/21 at 09:00 Venlafaxine HCl (Effexor Xr) 75 mg DAILY PO Last administered on 08/13/21at 08:47; Start 08/11/21 at 09:00 Budesonide (Pulmicort) 0.5 mg RTBID NEB Last administered on 08/13/21at 07:32; Start 08/11/21 at 20:00 Albuterol Sulfate (Ventolin Neb Soln) 2.5 mg RTQID NEB Last administered on 08/13/21at 12:00; Start 08/11/21 at 12:00 Acetaminophen/ Hydrocodone Bitart (Lortab 10/325) 1 tab PRN Q6HRS PRN PO SEVERE PAIN Last administered on 08/13/21at 08:56; Start 08/11/21 at 08:30; Stop 08/13/21 at 13:01; Status DC Albuterol Sulfate (Ventolin Neb Soln) 2.5 mg PRN Q4HRS PRN NEB SHORTNESS OF BREATH; Start 08/11/21 at 10:45 Cefazolin Sodium/ Dextrose 50 ml @ 100 mls/hr 1X PREOP PRN IV PRIOR TO PROCEDURE Last administered on 08/12/21at 12:12; Start 08/12/21 at 06:00; Stop 08/12/21 at 18:00; Status DC Fentanyl Citrate (Fentanyl 2ml Vial) 25 mcg PRN Q5MIN PRN IVP MILD PAIN 1-3; Start 08/12/21 at 06:00; Stop 08/13/21 at 05:59; Status DC Fentanyl Citrate (Fentanyl 2ml Vial) 50 mcg PRN Q5MIN PRN IVP MODERATE PAIN 4- 6; Start 08/12/21 at 06:00; Stop 08/13/21 at 05:59; Status DC Morphine Sulfate (Morphine Sulfate) 1 mg PRN Q10MIN PRN IVP SEVERE PAIN 7-10 Last administered on 08/12/21at 16:42; Start 08/12/21 at 06:00; Stop 08/13/21 at 05:59; Status DC Ringer's Solution 1,000 ml @ 30 mls/hr Q24H IV Last administered on 08/12/21at 06:20; Start 08/12/21 at 06:00; Stop 08/12/21 at 17:59; Status DC Hydromorphone HCl (Dilaudid) 0.5 mg PRN Q10MIN PRN IVP SEVERE PAIN 7-10, 2nd CHOICE; Start 08/12/21 at 06:00; Stop 08/13/21 at 05:59; Status DC Prochlorperazine Edisylate (Compazine) 5 mg PACU PRN PRN IVP NAUSEA, MRX1; Start 08/12/21 at 06:00; Stop 08/13/21 at 05:59; Status DC Cefazolin Sodium 1 gm/Sodium Chloride 500 ml @ 500 mls/hr 1X ONCE IRR ; Start 08/12/21 at 06:00; Stop 08/12/21 at 06:59; Status Cancel Cefazolin Sodium 1 gm/Sodium Chloride 1,000 ml @ 1,000 mls/hr 1X ONCE IRR Last administered on 08/12/21at 12:41; Start 08/12/21 at 06:00; Stop 08/12/21 at 06:59; Status DC Gelatin (Gelfoam Size 100) 1 each STK-MED ONCE .ROUTE Last administered on 08/12/21at 12:41; Start 08/12/21 at 07:20; Stop 08/12/21 at 07:21; Status DC Bupivacaine HCl/ Epinephrine Bitart (Sensorcain-Epi 0.5%-1:822422 Mpf) [address] K-MED ONCE .ROUTE Last administered on 08/12/21at 12:41; Start 08/12/21 at 07:20; Stop 08/12/21 at 07:21; Status DC Ketorolac Tromethamine (Toradol Im) 60 mg STK-MED ONCE .ROUTE Last administered on 08/12/21at 12:41; Start 08/12/21 at 07:20; Stop 08/12/21 at 07:21; Status DC Thrombin 20,000 unit STK-MED ONCE TP Last administered on 08/12/21at 12:41; Start 08/12/21 at 07:20; Stop 08/12/21 at 07:21; Status DC Morphine Sulfate (Morphine Sulfate) 2 mg STK-MED ONCE .ROUTE ; Start 08/12/21 at 08:17; Stop 08/12/21 at 08:17; Status DC Morphine Sulfate (Morphine Sulfate) 2 mg 1X ONCE IVP Last administered on 08/12/21at 08:23; Start 08/12/21 at 08:30; Stop 08/12/21 at 08:31; Status DC Hydromorphone HCl (Dilaudid) 2 mg STK-MED ONCE .ROUTE ; Start 08/12/21 at 09:01; Stop 08/12/21 at 09:02; Status DC Hydromorphone HCl (Dilaudid) 2 mg 1X ONCE IM ; Start 08/12/21 at 09:30; Stop 08/12/21 at 09:31; Status DC Propofol (Diprivan) 200 mg STK-MED ONCE IV ; Start 08/12/21 at 09:48; Stop 08/12/21 at 09:48; Status DC Propofol 50 ml @ As Directed STK-MED ONCE IV ; Start 08/12/21 at 09:48; Stop 08/12/21 at 09:48; Status DC Hydromorphone HCl (Dilaudid) 2 mg 1X ONCE IVP Last administered on 08/12/21at 09:57; Start 08/12/21 at 10:00; Stop 08/12/21 at 10:01; Status DC Phenylephrine HCl (Mark-Synephrine Inj) 10 mg STK-MED ONCE .ROUTE ; Start 08/12/21 at 09:55; Stop 08/12/21 at 09:55; Status DC Dexamethasone Sodium Phosphate (Decadron) 4 mg STK-MED ONCE .ROUTE ; Start 08/12/21 at 10:00; Stop 08/12/21 at 10:01; Status DC Glycopyrrolate (Robinul) 1 mg STK-MED ONCE .ROUTE ; Start 08/12/21 at 10:00; Stop 08/12/21 at 10:01; Status DC Lidocaine HCl (Lidocaine Pf 2% Vial) 5 ml STK-MED ONCE .ROUTE ; Start 08/12/21 at 10:02; Stop 08/12/21 at 10:03; Status DC Rocuronium [place] (Zemuron) 50 mg STK-MED ONCE .ROUTE ; Start 08/12/21 at 10:02; Stop 08/12/21 at 10:03; Status DC Remifentanil HCl (Ultiva) 2 mg STK-MED ONCE IV ; Start 08/12/21 at 11:14; Stop 08/12/21 at 11:15; Status DC Albuterol/ Ipratropium (Duoneb) 3 ml 1X ONCE NEB Last administered on 08/12/21at 11:20; Start 08/12/21 at 11:15; Stop 08/12/21 at 11:17; Status DC Albuterol/ Ipratropium (Duoneb) 3 ml STK-MED ONCE .ROUTE ; Start 08/12/21 at 11:17; Stop 08/12/21 at 11:18; Status DC Ephedrine Sulfate (ePHEDrine PF IN SALINE SYRINGE) 50 mg STK-MED ONCE IV ; Start 08/12/21 at 12:21; Stop 08/12/21 at 12:21; Status DC Propofol 50 ml @ As Directed STK-MED ONCE IV ; Start 08/12/21 at 12:46; Stop 08/12/21 at 12:47; Status DC Remifentanil HCl (Ultiva) 1 mg STK-MED ONCE IV ; Start 08/12/21 at 13:43; Stop 08/12/21 at 13:44; Status DC Phenylephrine HCl (Mark-Synephrine Inj) 10 mg STK-MED ONCE .ROUTE ; Start 08/12/21 at 14:27; Stop 08/12/21 at 14:28; Status DC Sevoflurane (Ultane) 60 ml STK-MED ONCE IH ; Start 08/12/21 at 14:35; Stop 08/12/21 at 14:35; Status DC Neostigmine [place] (Neostigmine Methylsulfate) 5 mg STK-MED ONCE .ROUTE ; Start 08/12/21 at 14:36; Stop 08/12/21 at 14:37; Status DC Ondansetron HCl (Zofran) 4 mg STK-MED ONCE .ROUTE ; Start 08/12/21 at 14:49; Stop 08/12/21 at 14:49; Status DC Remifentanil HCl (Ultiva) 1 mg STK-MED ONCE IV ; Start 08/12/21 at 15:06; Stop 08/12/21 at 15:07; Status DC Fentanyl Citrate (Fentanyl 2ml Vial) 50 mcg PRN Q2HR PRN IVP PAIN; Start 08/12/21 at 16:00 Acetaminophen (Tylenol) 650 mg PRN Q6HRS PRN PO MILD PAIN / TEMP > 100.3'F; Start 08/12/21 at 16:00 Al Hydroxide/Mg Hydroxide (Mylanta Plus Xs) 30 ml PRN Q3HRS PRN PO HEARTBURN / GAS; Start 08/12/21 at 16:00 Calcium Carbonate/ Glycine (Tums) 500 mg PRN Q3HRS PRN PO INDIGESTION; Start 08/12/21 at 16:00 Diphenhydramine HCl (Benadryl) 25 mg PRN Q6HRS PRN PO ITCHING; Start 08/12/21 at 16:00 Naloxone HCl (Narcan) 0.1 mg PRN Q2MIN PRN IV SEE COMMENTS; Start 08/12/21 at 16:00 Sodium Chloride (Normal Saline Flush) 3 ml QSHIFT PRN IV AFTER MEDS AND BLOOD DRAWS; Start 08/12/21 at 16:00 Docusate Sodium (Colace) 100 mg BID PO ; Start 08/12/21 at 21:00; Stop 08/13/21 at 08:38; Status DC Magnesium Hydroxide (Milk Of Magnesia) 2,400 mg PRN Q12HR PRN PO CONSTIPATION; Start 08/12/21 at 16:00 Morphine Sulfate (Morphine Sulfate) 2 mg STK-MED ONCE .ROUTE ; Start 08/12/21 at 16:50; Stop 08/12/21 at 16:50; Status DC Acetaminophen/ Hydrocodone Bitart (Lortab 10/325) 1 tab PRN Q4HRS PRN PO SEVERE PAIN Last administered on 08/13/21at 13:11; Start 08/13/21 at 13:00 Active Scripts Active Reported Proair Hfa Inhaler (Albuterol Sulfate) 8.5 Gm Hfa.aer.ad 1 Puff INH PRN Q6HRS PRN Symbicort 160-4.5 Mcg Inhaler (Budesonide/Formoterol Fumarate) 10.2 Gm Hfa.aer.ad 2 Puff IH BID Venlafaxine Hcl Er (Venlafaxine Hcl) 75 Mg Cap.er.24h 1 Cap PO DAILY Flomax (Tamsulosin Hcl) 0.4 Mg Cap.er.24h 1 Cap PO DAILY Nicardipine Hcl 30 Mg Capsule 30 Mg PO TID Lutein-Zeaxanthin 25-5 Mg Sfgl (Lutein/Zeaxanthin) 1 Each Capsule 1 Each PO BID Montelukast Sodium Tablet (Montelukast Sodium) 10 Mg Tablet 10 Mg PO HS Metformin Hcl 500 Mg Tablet 500 Mg PO BIDWMEALS Hydrocodone-Apap 5-325 (Hydrocodone Bit/Acetaminophen) 1 Tab Tablet 1 Tab PO PRN Q6HRS PRN Colace (Docusate Sodium) 100 Mg Capsule 1 Cap PO BID 30 Days Diclo Gel (Diclofenac Sodium) 1 Each Kit 1 Each TP TID PRN PRN B-12 (Cyanocobalamin (Vitamin B-12)) 1,000 Mcg Tablet.er 1 Tab PO DAILY 30 Days Vitamin D3 (Vitamin D) 25 Mcg Tablet 25 Mcg PO BID 1,000 UNITS = 25 MCG Zyrtec (Cetirizine Hcl) 10 Mg Tablet 1 Tab PO DAILY Thera Tears (Carboxymethylcellulose Sodium) 15 Ml Drops 1 Drop EACHEYE QID Miralax (Polyethylene Glycol 3350) 17 Gm Powd.pack 1 Packet PO DAILY Aspirin 81 Mg Tab.chew 1 Tab PO DAILY Symbicort 160-4.5 Mcg Inhaler (Budesonide/Formoterol Fumarate) 10.2 Gm Hfa.aer.ad 2 Puff IH BID Pantoprazole Sodium 40 Mg Tablet.dr 40 Mg PO Rapaflo (Silodosin) 8 Mg Capsule 1 Cap PO DAILY Atorvastatin Calcium 40 Mg Tablet 1 Tab PO DAILY Spironolactone 50 Mg Tablet 1 Tab PO DAILY Xarelto (Rivaroxaban) 20 Mg Tablet 20 Mg PO DAILY Carvedilol 25 Mg Tablet 25 Mg PO BIDWMEALS Flonase Allergy Relief (Fluticasone Propionate) 9.9 Ml Irene.susp 2 Sprays NS DAILY Albuterol Sulfate Neb Soln (Albuterol Sulfate) 2.5 Mg/3 Ml Vial.neb 1 Vial NEB PRN Q4HRS Vitals/I & O Vital Sign - Last 24 Hours 08/12/21 08/12/21 08/12/21 08/12/21 16:02 16:15 16:30 16:42 Temp 98.1 98.1 Pulse 72 64 71 Resp 18 18 20 20 B/P (MAP) 194/88 190/85 185/89 Pulse Ox 97 99 93 99 O2 Delivery Simple Mask Simple Mask Room Air Room Air O2 Flow Rate 6 6 08/12/21 08/12/21 08/12/21 08/12/21 16:45 16:52 16:58 17:00 Temp 98.2 98.2 Pulse 63 95 63 Resp 20 20 20 B/P (MAP) 176/112 172/79 166/87 (113) Pulse Ox 94 92 93 O2 Delivery Room Air Room Air Room Air 08/12/21 08/12/21 08/12/21 08/12/21 17:15 17:30 17:45 18:15 Pulse 68 69 60 66 B/P (MAP) 160/80 (106) 164/78 (106) 160/88 (112) 171/79 (109) 08/12/21 08/12/21 08/12/21 08/12/21 18:20 18:45 19:40 19:52 Temp 97.5 97.5 Pulse 69 72 66 Resp 18 B/P (MAP) 164/78 166/81 (109) 180/99 (126) 160/80 (106) Pulse Ox 94 O2 Delivery Nasal Cannula O2 Flow Rate 2.0 08/12/21 08/12/21 08/12/21 08/12/21 20:00 20:19 21:00 23:09 Temp 97.7 98.0 97.7 98.0 Pulse 67 64 Resp 20 20 B/P (MAP) 173/91 (118) 161/77 (105) Pulse Ox 96 95 96 O2 Delivery Nasal Cannula Nasal Cannula Nasal Cannula Nasal Cannula O2 Flow Rate 2.0 2.0 2.0 2.0 08/13/21 08/13/21 08/13/21 08/13/21 02:34 03:04 03:09 07:00 Temp 98.0 97.7 98.0 97.7 Pulse 69 64 Resp 20 20 18 18 B/P (MAP) 163/74 (103) 177/92 (120) Pulse Ox 94 96 O2 Delivery Nasal Cannula Nasal Cannula Nasal Cannula Nasal Cannula O2 Flow Rate 2.0 2.0 08/13/21 08/13/21 08/13/21 08/13/21 07:33 08:00 08:47 08:48 Pulse 64 64 B/P (MAP) 177/92 177/92 Pulse Ox 97 O2 Delivery Nasal Cannula Nasal Cannula O2 Flow Rate 2.0 2.0 08/13/21 08/13/21 08/13/21 08/13/21 08:56 09:25 11:00 12:06 Temp 98.2 98.2 Pulse 82 Resp 18 B/P (MAP) 155/62 (93) Pulse Ox 94 95 O2 Delivery Nasal Cannula Nasal Cannula Nasal Cannula Room Air O2 Flow Rate 2.0 2.0 2.0 08/13/21 08/13/21 13:11 13:40 Pulse Ox 94 O2 Delivery Room Air Room Air Intake and Output 08/12/21 08/12/21 08/13/21 15:00 23:00 07:00 Intake Total 0 ml 1250 ml 480 ml Output Total 830 ml 450 ml Balance 0 ml 420 ml 30 ml Justifications for Admission Other Justification DESIRAE IRVIN MD Aug 13, 2021 14:59
[2021-08-13 15:00] VITALS: BP 133/64
[2021-08-13] MEDS: fentaNYL PF VIAL 100 MCG/2 ML VIAL IVP PRN ×3 (17:24→21:59)
[2021-08-13 19:00] VITALS: BP 144/76
[2021-08-13] MEDS: MONTELUKAST SODIUM 10 MG TABLET. PO SCH (20:22)
[2021-08-13] MEDS: ATORVASTATIN CALCIUM 40 MG TABLET. PO SCH (20:28)
[2021-08-13] MEDS ORDERED: CYCLOBENZAPRINE 10 MG TABLET. PO PRN (21:00)
[2021-08-13] MEDS: CYCLOBENZAPRINE 10 MG TABLET. PO PRN (21:14)
[2021-08-13 23:03] VITALS: BP 177/93
[2021-08-14] MEDS: HYDROcodone/APAP 10/325 1 TAB TABLET PO PRN ×2 (01:55→08:53)
[2021-08-14] MEDS: fentaNYL PF VIAL 100 MCG/2 ML VIAL IVP PRN (03:00)
[2021-08-14 03:24] VITALS: BP 195/92
[2021-08-14] MEDS: hydrALAZINE 20 MG/ML VIAL. IVP PRN ×2 (03:36→08:56)
--- NOTE | 2021-08-14 06:58 | OP ---
DATE OF SURGERY: 08/12/2021 PREOPERATIVE DIAGNOSES: 1. Herniated lumbar disc and hypertrophic facet and bone with stenosis, right L4-L5. 2. Herniated disc behind the body of L5 with stenosis. 3. Disc bulging and hypertrophic facet and bone with severe lumbar radiculopathy, right L5-S1. L5-S1 is a previously operated level. OPERATION PERFORMED: 1. Right direct laminectomy L4-L5 with decompression of dura and nerve roots and microdiscectomy, right L4-L5. 2. Right-sided laminectomy along the lamina of L5 from the L4-L5 disc space to the L5-S1 disc space. 3. Hemilaminotomy and microdiscectomy reop right L5-S1. The operation was done with EMG monitoring, SSEP monitoring, fluoroscopy, microscopic dissection. SPECIMEN: Disc and decompression. SURGEON: Chucho Copeland M.D. FISH CUTTING MACHINE OPERATOR: JACKIE Alatorre, assisted with the surgery. She assisted with the exposure, the multilevel decompression as well as the closure. OPERATIVE INDICATIONS: The patient is a pleasant 70-year-old who developed very severe intractable back and right leg pain, which required hospitalization to help control. He has above-mentioned findings on imaging studies with a disc herniation, which appeared to emanate from L5-S1 and move superiorly and centrally associated with stenosis along with compression of the nerve roots on the right side at L5-S1, which is a previously operated level. In addition, there was disc bulging and hypertrophic facet associated with compression of the L5 root at L4-L5. I recommended dealing with these levels and spoke with the patient in detail about this and he understood the surgery and the risks. He will understood he may not improve that he can worsen with surgery. He strongly wished to go ahead. DESCRIPTION OF PROCEDURE: Following general endotracheal anesthesia, the patient was positioned prone on the Rodriguez table. Lumbar region prepped and draped in the standard fashion. ISABELLA hose and AV impulse boots were applied for DVT prophylaxis. A microscope was draped, fluoroscopy was draped and brought into the field. Monitoring was established. Ancef 2 grams given less than 1 hour prior to initiation of surgery. Using fluoroscopic guidance, a midline incision was made extending from L4-S1. I dissected down through skin and subcutaneous tissue, reflected the paraspinal muscles, placed a Redfield microdisk retractor. I cleared off scar and visualized L4-L5 and brought in the microscope. Using high speed air drill, I burred down a generous right direct laminectomy and then decompressed quite far laterally and performed a partial foraminotomy with a high-speed air drill. I then peeled away the thickened ligamentum flavum, which was partially scarred and after this, I then palpated the disc, which was bulging. I performed a discectomy with pituitary rongeurs. Following this, then I followed inferiorly and removed the right side of the lamina of L5 as far medially as I possibly could, working gently to separate the dura from the overlying bone and assuring that I would not create a dural laceration, which I did not. This was a tedious difficult portion of the surgery, working through the scar and as I worked inferiorly, I was able to decompress widely. I then followed through decompression and entered into the body of S1 and performed a generous partial foraminotomy fully decompressing this region. There was a large bulging disc, which was lateral compressing both the L5 and the S1 roots, was in a paramedian position and I removed a portion of the foramen on the right side to allow me to have access to the disc. I incised the annulus. I performed discectomy with pituitary rongeurs and as I worked, both the L5 and the S1 roots were well decompressed at this point, then I explored carefully, I felt that I had an excellent decompression throughout. Monitoring was stable throughout the operation. I irrigated copiously with antibiotic solution. I then closed the wound in layers with absorbable suture and the skin was closed with 4-0 subcuticular stitch. I felt the surgery went very well. HENRY DR: Cindy TID: [id number] CATHRYN
[2021-08-14 07:00] VITALS: BP 200/91
[2021-08-14] MEDS: BUDESONIDE 0.5 MG/2 ML NEBU. NEB SCH ×2 (07:24→20:06)
[2021-08-14] MEDS: ALBUTEROL SULFATE 2.5 MG/3 ML NEBU. NEB SCH ×4 (07:24→20:06)
[2021-08-14] MEDS: ASPIRIN CHEWABLE 81 MG TABLET. PO SCH (08:53)
[2021-08-14] MEDS: CYCLOBENZAPRINE 10 MG TABLET. PO PRN (08:53)
[2021-08-14] MEDS: CHOLECALCIFEROL (VITAMIN D3) 1,000 UNIT TABLET PO SCH ×2 (08:54→21:30)
[2021-08-14] MEDS: metFORMIN 500 MG TABLET PO SCH ×2 (08:54→16:45)
[2021-08-14] MEDS: TAMSULOSIN 0.4 MG CAP.ER.24H. PO SCH (08:54)
[2021-08-14] MEDS: POLYETHYLENE GLYCOL 3350 17 GM PACKET. PO SCH (08:54)
[2021-08-14] MEDS: DOCUSATE SODIUM 100 MG CAPSULE. PO SCH ×2 (08:54→21:29)
[2021-08-14] MEDS: VENLAFAXINE XR 37.5 MG CAP.ER.24H. PO SCH (08:54)
[2021-08-14] MEDS: CETIRIZINE HCL 10 MG TABLET. PO SCH (08:55)
[2021-08-14] MEDS: CYANOCOBALAMIN (VITAMIN B-12) 1,000 MCG TABLET. PO SCH (08:55)
[2021-08-14] MEDS: SPIRONOLACTONE 25 MG TABLET PO SCH (08:55)
[2021-08-14] MEDS: FLUTICASONE 50MCG/NASAL SPRAY 16GM BOTTLE. NS SCH (08:56)
[2021-08-14] MEDS: CARVEDILOL 12.5 MG TABLET. PO SCH ×2 (09:00→16:46)
--- NOTE | 2021-08-14 09:51 | PDOC ---
[facility] PROGRESS NOTE Date of Service DOS: DATE: 08/14/21 TIME: 09:49 Chief Complaint Chief Complaint Intractable back pain, unable to ambulate, consult Pain clinic and Neurosurg who had been following, Prior CVA, minimal right residual, mostly sensory, has been taking Xarelto to prevent further CVA, he has been having this on hold DM2 obese, htn depression, anxiety nerve pain History of Present Illness History of Present Illness new electric shock pain to right side to right groin. He motions that he gets a shock-like pain for a few seconds, and he traces the L1 dermatome on the right side will start Gabapentin to try to help. Neurosurg to comment, poss post-op minor irritation surgery done yesterday, pain better, feels sore today s, s/p surg decompression and laminectomy OOB to chair will advance diet, start PT and OT, neurosurg following Vitals/I&O Vitals/I&O: Vital Signs Date Time Temp Pulse Resp B/P (MAP) Pulse Ox O2 Delivery O2 Flow Rate FiO2 08/14/21 09:00 84 200/91 08/14/21 08:53 Room Air 08/14/21 07:27 94 08/14/21 07:00 97.9 22 97.9 08/14/21 03:31 2.0 I & O 08/13/21 08/13/21 08/14/21 15:00 23:00 07:00 Intake Total 550 ml 250 ml 350 ml Output Total 900 ml Balance 550 ml 250 ml -550 ml Physical Exam General: Alert, Oriented X3, Cooperative Heart: No murmurs, Other Lungs: Clear Extremities: No clubbing, No edema, Normal pulses Skin: Other (dressing dry and intact) Assessment and Plan Assessmemt and Plan Problems Medical Problems: (1) Intractable low back pain Status: Acute (2) Sciatic leg pain Status: Acute Comment Review of Relevant I have reviewed the following items beau (where applicable) has been applied. Medications: Current Medications Medications (Trade) Dose Ordered Sig/Yariel Route PRN Reason Start Time Stop Time Status Last Admin Dose Admin Acetaminophen/ Hydrocodone Bitart (Lortab 10/325) 1 tab PRN Q4HRS PRN PO SEVERE PAIN 08/13/21 13:00 08/14/21 08:53 Cyclobenzaprine HCl (Flexeril) 10 mg PRN Q6HRS PRN PO MUSCLE SPASMS 08/13/21 21:00 08/14/21 08:53 Hydralazine HCl (Apresoline Inj) 10 mg PRN Q4HRS PRN IVP ELEVATED BP, SEE COMMENTS 08/14/21 03:30 08/14/21 08:56 Justifications for Admission Other Justification ZEKE BARRAGAN MD Aug 14, 2021 09:51
[2021-08-14] MEDS ORDERED: GABAPENTIN 300 MG CAPSULE. PO ONE (10:00)
[2021-08-14 11:00] VITALS: BP 149/71
[2021-08-14 15:00] VITALS: BP 152/69
--- NOTE | 2021-08-14 15:02 | PDOC ---
PROGRESS NOTES Date of Service DATE: 08/14/21 TIME: 14:56 Subjective Subjective POD #2 S/P laminectomy / microdiscectomy L4-5, L5- S1 resting in bed continues to c/o right groin and lateral thigh pain when standing from sitting, overall feels improved denies significant pain with walking Objective Objective Vital Signs Date Time Temp Pulse Resp B/P (MAP) Pulse Ox O2 Delivery O2 Flow Rate FiO2 08/14/21 11:26 Room Air 08/14/21 11:00 98.1 65 20 149/71 (97) 95 98.1 08/14/21 07:45 2.0 Intake and Output 08/14/21 07:00 Intake Total 1150 ml Output Total 900 ml Balance 250 ml Intake Oral 1150 ml Output Urine Total 900 ml # Voids 1 Physical Exam General: Oriented X3, Cooperative, No acute distress Neck: Other (BUSTOS) Neuro: Other (normal strength in LE) Skin: Other (dressing changed, minimal oozing) Assessment Assessment Problems Medical Problems: (1) Intractable low back pain Status: Acute (2) Sciatic leg pain Status: Acute Plan Plan of Care medrol dose pack ordered, on gabapentin restart Xarelto this evening encouraged increased activity as tolerated PT likely SNF Monday D/W RN Comment Review of Relevant I have reviewed the following items beau (where applicable) has been applied. Labs Laboratory Tests Test 08/12/21 16:20 Glucose (Fingerstick) 105 mg/dL (70-99) Medications Current Medications Fentanyl Citrate (Fentanyl 2ml Vial) 75 mcg 1X ONCE IVP Last administered on 08/10/21at 21:05; Start 08/10/21 at 21:00; Stop 08/10/21 at 21:01; Status DC Methylprednisolone Sodium Succinate (SOLU-Medrol 125MG VIAL) 125 mg 1X ONCE IV Last administered on 08/10/21at 21:15; Start 08/10/21 at 21:00; Stop 08/10/21 at 21:01; Status DC Albuterol Sulfate (Ventolin Neb Soln) 2.5 mg 1X ONCE NEB Last administered on 08/10/21at 21:52; Start 08/10/21 at 22:00; Stop 08/10/21 at 22:01; Status DC Diazepam (Valium) 2 mg 1X ONCE PO Last administered on 08/11/21at 00:57; Start 08/10/21 at 23:30; Stop 08/10/21 at 23:31; Status DC Ketorolac Tromethamine (Toradol 30mg Vial) 30 mg 1X ONCE IVP Last administered on 08/11/21at 00:57; Start 08/10/21 at 23:30; Stop 08/10/21 at 23:31; Status DC Morphine Sulfate (Morphine Sulfate) 2 mg PRN Q2HR PRN IVP SEVERE PAIN 7-10 Last administered on 08/11/21at 03:06; Start 08/10/21 at 23:30; Stop 08/11/21 at 23:29; Status DC Albuterol Sulfate (Ventolin Neb Soln) 1 mg PRN Q4HRS PRN NEB SHORTNESS OF BREATH; Start 08/11/21 at 08:00; Stop 08/11/21 at 10:45; Status DC Aspirin (Aspirin Chewable) 81 mg DAILY PO Last administered on 08/14/21at 08:53; Start 08/11/21 at 09:00 Atorvastatin Calcium (Lipitor) 40 mg QHS PO Last administered on 08/13/21at 20:28; Start 08/11/21 at 21:00 Cetirizine HCl (ZyrTEC) 10 mg DAILY PO Last administered on 08/14/21 08:55; Start 08/11/21 at 09:00 Vitamin D (Vitamin D3) 1,000 unit BID PO Last administered on 08/14/21 08:54; Start 08/11/21 at 09:00 Docusate Sodium (Colace) 100 mg BID PO Last administered on 08/14/21at 08:54; Start 08/11/21 at 09:00 Acetaminophen/ Hydrocodone Bitart (Lortab 5/325) 1 tab PRN Q6HRS PRN PO MODERATE PAIN; Start 08/11/21 at 08:00 Metformin HCl (Glucophage) 500 mg BIDWMEALS PO Last administered on 08/14/21 08:54; Start 08/11/21 at 08:30 Montelukast Sodium (Singulair) 10 mg HS PO Last administered on 08/13/21at 20:22; Start 08/11/21 at 21:00 Pantoprazole Sodium (Protonix) 40 mg DAILYAC PO Last administered on 10/15/21at 08:48; Start 08/11/21 at 08:30 Polyethylene Glycol (miraLAX PACKET) 17 gm DAILY PO Last administered on 08/14/21at 08:54; Start 08/11/21 at 09:00 Tamsulosin HCl (Flomax) 0.4 mg DAILY PO Last administered on 08/14/21at 08:54; Start 08/11/21 at 09:00 Non-Formulary Medication (Budesonide/ Formoterol Fumarate (Symbicort 160-4.5 Mcg Inhaler)) 2 puff BID IH ; Start 08/11/21 at 09:00; Status UNV Glycerin/ Hypromellose/ Polyethylene (Artificial Tears) 1 drop PRN QID PRN OU DRY EYE; Start 08/11/21 at 08:15 Carvedilol (Coreg) 25 mg BIDWMEALS PO Last administered on 08/14/21at 09:00; Start 08/11/21 at 08:30 Cyanocobalamin (Vitamin B-12) 1,000 mcg DAILY PO Last administered on 08/14/21at 08:55; Start 08/11/21 at 09:00 Diclofenac Sodium (Voltaren) 1 jodie TID PRN PRN TP PAIN; Start 08/11/21 at 08:15 Fluticasone Propionate (Flonase) 2 spray DAILY NS Last administered on 08/14/21at 08:56; Start 08/11/21 at 09:00 Non-Formulary Medication (Lutein/ Zeaxanthin (Lutein-Zeaxanthin 25-5 Mg Sfgl)) 1 each BID PO ; Start 08/11/21 at 09:00; Status UNV Amlodipine Besylate (Norvasc) 5 mg DAILY PO Last administered on 08/14/21at 08:55; Start 08/11/21 at 09:00 Rivaroxaban (Xarelto) 20 mg DAILYWSUP PO ; Start 08/11/21 at 17:00; Stop 08/11/21 at 08:28; Status DC Non-Formulary Medication (Silodosin (Rapaflo)) 1 cap DAILY PO ; Start 08/11/21 at 09:00; Status UNV Spironolactone (Aldactone) 50 mg DAILY PO Last administered on 08/14/21at 08:55; Start 08/11/21 at 09:00 Venlafaxine HCl (Effexor Xr) 75 mg DAILY PO Last administered on 08/14/21at 08:54; Start 08/11/21 at 09:00 Budesonide (Pulmicort) 0.5 mg RTBID NEB Last administered on 08/14/21at 07:24; Start 08/11/21 at 20:00 Albuterol Sulfate (Ventolin Neb Soln) 2.5 mg RTQID NEB Last administered on 08/14/21at 11:25; Start 08/11/21 at 12:00 Acetaminophen/ Hydrocodone Bitart (Lortab 10/325) 1 tab PRN Q6HRS PRN PO SEVERE PAIN Last administered on 08/13/21at 08:56; Start 08/11/21 at 08:30; Stop 08/13/21 at 13:01; Status DC Albuterol Sulfate (Ventolin Neb Soln) 2.5 mg PRN Q4HRS PRN NEB SHORTNESS OF BREATH; Start 08/11/21 at 10:45 Cefazolin Sodium/ Dextrose 50 ml @ 100 mls/hr 1X PREOP PRN IV PRIOR TO PROCEDURE Last administered on 08/12/21at 12:12; Start 08/12/21 at 06:00; Stop 08/12/21 at 18:00; Status DC Fentanyl Citrate (Fentanyl 2ml Vial) 25 mcg PRN Q5MIN PRN IVP MILD PAIN 1-3; Start 08/12/21 at 06:00; Stop 08/13/21 at 05:59; Status DC Fentanyl Citrate (Fentanyl 2ml Vial) 50 mcg PRN Q5MIN PRN IVP MODERATE PAIN 4- 6; Start 08/12/21 at 06:00; Stop 08/13/21 at 05:59; Status DC Morphine Sulfate (Morphine Sulfate) 1 mg PRN Q10MIN PRN IVP SEVERE PAIN 7-10 Last administered on 08/12/21at 16:42; Start 08/12/21 at 06:00; Stop 08/13/21 at 05:59; Status DC Ringer's Solution 1,000 ml @ 30 mls/hr Q24H IV Last administered on 08/12/21at 06:20; Start 08/12/21 at 06:00; Stop 08/12/21 at 17:59; Status DC Hydromorphone HCl (Dilaudid) 0.5 mg PRN Q10MIN PRN IVP SEVERE PAIN 7-10, 2nd CHOICE; Start 08/12/21 at 06:00; Stop 08/13/21 at 05:59; Status DC Prochlorperazine Edisylate (Compazine) 5 mg PACU PRN PRN IVP NAUSEA, MRX1; Start 08/12/21 at 06:00; Stop 08/13/21 at 05:59; Status DC Cefazolin Sodium 1 gm/Sodium Chloride 500 ml @ 500 mls/hr 1X ONCE IRR ; Start 08/12/21 at 06:00; Stop 08/12/21 at 06:59; Status Cancel Cefazolin Sodium 1 gm/Sodium Chloride 1,000 ml @ 1,000 mls/hr 1X ONCE IRR Last administered on 08/12/21at 12:41; Start 08/12/21 at 06:00; Stop 08/12/21 at 06:59; Status DC Gelatin (Gelfoam Size 100) 1 each STK-MED ONCE .ROUTE Last administered on 08/12/21at 12:41; Start 08/12/21 at 07:20; Stop 08/12/21 at 07:21; Status DC Bupivacaine HCl/ Epinephrine Bitart (Sensorcain-Epi 0.5%-1:[id number] Mpf) 30 ml STK-MED ONCE .ROUTE Last administered on 08/12/21at 12:41; Start 08/12/21 at 07:20; Stop 08/12/21 at 07:21; Status DC Ketorolac Tromethamine (Toradol Im) 60 mg STK-MED ONCE .ROUTE Last administered on 08/12/21at 12:41; Start 08/12/21 at 07:20; Stop 08/12/21 at 07:21; Status DC Thrombin 20,000 unit STK-MED ONCE TP Last administered on 08/12/21at 12:41; Start 08/12/21 at 07:20; Stop 08/12/21 at 07:21; Status DC Morphine Sulfate (Morphine Sulfate) 2 mg STK-MED ONCE .ROUTE ; Start 08/12/21 at 08:17; Stop 08/12/21 at 08:17; Status DC Morphine Sulfate (Morphine Sulfate) 2 mg 1X ONCE IVP Last administered on 08/12/21at 08:23; Start 08/12/21 at 08:30; Stop 08/12/21 at 08:31; Status DC Hydromorphone HCl (Dilaudid) 2 mg STK-MED ONCE .ROUTE ; Start 08/12/21 at 09:01; Stop 08/12/21 at 09:02; Status DC Hydromorphone HCl (Dilaudid) 2 mg 1X ONCE IM ; Start 08/12/21 at 09:30; Stop 08/12/21 at 09:31; Status DC Propofol (Diprivan) 200 mg STK-MED ONCE IV ; Start 08/12/21 at 09:48; Stop 08/12/21 at 09:48; Status DC Propofol 50 ml @ As Directed STK-MED ONCE IV ; Start 08/12/21 at 09:48; Stop 08/12/21 at 09:48; Status DC Hydromorphone HCl (Dilaudid) 2 mg 1X ONCE IVP Last administered on 08/12/21at 09:57; Start 08/12/21 at 10:00; Stop 08/12/21 at 10:01; Status DC Phenylephrine HCl (Mark-Synephrine Inj) 10 mg STK-MED ONCE .ROUTE ; Start 08/12/21 at 09:55; Stop 08/12/21 at 09:55; Status DC Dexamethasone Sodium Phosphate (Decadron) 4 mg STK-MED ONCE .ROUTE ; Start 08/12/21 at 10:00; Stop 08/12/21 at 10:01; Status DC Glycopyrrolate (Robinul) 1 mg STK-MED ONCE .ROUTE ; Start 08/12/21 at 10:00; Stop 08/12/21 at 10:01; Status DC Lidocaine HCl (Lidocaine Pf 2% Vial) 5 ml STK-MED ONCE .ROUTE ; Start 08/12/21 at 10:02; Stop 08/12/21 at 10:03; Status DC Rocuronium Mck[place] (Zemuron) 50 mg STK-MED ONCE .ROUTE ; Start 08/12/21 at 10:02; Stop 08/12/21 at 10:03; Status DC Remifentanil HCl (Ultiva) 2 mg STK-MED ONCE IV ; Start 08/12/21 at 11:14; Stop 08/12/21 at 11:15; Status DC Albuterol/ Ipratropium (Duoneb) 3 ml 1X ONCE NEB Last administered on 08/12/21at 11:20; Start 08/12/21 at 11:15; Stop 08/12/21 at 11:17; Status DC Albuterol/ Ipratropium (Duoneb) 3 ml STK-MED ONCE .ROUTE ; Start 08/12/21 at 11:17; Stop 08/12/21 at 11:18; Status DC Ephedrine Sulfate (ePHEDrine PF IN SALINE SYRINGE) 50 mg STK-MED ONCE IV ; Start 08/12/21 at 12:21; Stop 08/12/21 at 12:21; Status DC Propofol 50 ml @ As Directed STK-MED ONCE IV ; Start 08/12/21 at 12:46; Stop 08/12/21 at 12:47; Status DC Remifentanil HCl (Ultiva) 1 mg STK-MED ONCE IV ; Start 08/12/21 at 13:43; Stop 08/12/21 at 13:44; Status DC Phenylephrine HCl (Mark-Synephrine Inj) 10 mg STK-MED ONCE .ROUTE ; Start 08/12/21 at 14:27; Stop 08/12/21 at 14:28; Status DC Sevoflurane (Ultane) 60 ml STK-MED ONCE IH ; Start 08/12/21 at 14:35; Stop 08/12/21 at 14:35; Status DC Neostigmine Mck[place] (Neostigmine Methylsulfate) 5 mg STK-MED ONCE .ROUTE ; Start 08/12/21 at 14:36; Stop 08/12/21 at 14:37; Status DC Ondansetron HCl (Zofran) 4 mg STK-MED ONCE .ROUTE ; Start 08/12/21 at 14:49; Stop 08/12/21 at 14:49; Status DC Remifentanil HCl (Ultiva) 1 mg STK-MED ONCE IV ; Start 08/12/21 at 15:06; Stop 08/12/21 at 15:07; Status DC Fentanyl Citrate (Fentanyl 2ml Vial) 50 mcg PRN Q2HR PRN IVP PAIN Last administered on 08/14/21at 03:00; Start 08/12/21 at 16:00 Acetaminophen (Tylenol) 650 mg PRN Q6HRS PRN PO MILD PAIN / TEMP > 100.3'F; Start 08/12/21 at 16:00 Al Hydroxide/Mg Hydroxide (Mylanta Plus Xs) 30 ml PRN Q3HRS PRN PO HEARTBURN / GAS; Start 08/12/21 at 16:00 Calcium Carbonate/ Glycine (Tums) 500 mg PRN Q3HRS PRN PO INDIGESTION; Start 08/12/21 at 16:00 Diphenhydramine HCl (Benadryl) 25 mg PRN Q6HRS PRN PO ITCHING Last administered on 08/14/21at 01:55; Start 08/12/21 at 16:00 Naloxone HCl (Narcan) 0.1 mg PRN Q2MIN PRN IV SEE COMMENTS; Start 08/12/21 at 16:00 Sodium Chloride (Normal Saline Flush) 3 ml QSHIFT PRN IV AFTER MEDS AND BLOOD DRAWS; Start 08/12/21 at 16:00 Docusate Sodium (Colace) 100 mg BID PO ; Start 08/12/21 at 21:00; Stop 08/13/21 at 08:38; Status DC Magnesium Hydroxide (Milk Of Magnesia) 2,400 mg PRN Q12HR PRN PO CONSTIPATION; Start 08/12/21 at 16:00 Morphine Sulfate (Morphine Sulfate) 2 mg STK-MED ONCE .ROUTE ; Start 08/12/21 at 16:50; Stop 08/12/21 at 16:50; Status DC Acetaminophen/ Hydrocodone Bitart (Lortab 10/325) 1 tab PRN Q4HRS PRN PO SEVERE PAIN Last administered on 08/14/21at 08:53; Start 08/13/21 at 13:00 Cyclobenzaprine HCl (Flexeril) 10 mg PRN Q6HRS PRN PO MUSCLE SPASMS Last administered on 08/14/21at 08:53; Start 08/13/21 at 21:00 Cyclobenzaprine HCl (Flexeril) 10 mg PRN Q6HRS PRN PO MUSCLE SPASMS; Start 08/13/21 at 21:00; Status Cancel Hydralazine HCl (Apresoline Inj) 10 mg PRN Q4HRS PRN IVP ELEVATED BP, SEE C OMMENTS Last administered on 08/14/21at 08:56; Start 08/14/21 at 03:30 Gabapentin (Neurontin) 300 mg 1X ONCE PO Last administered on 08/14/21at 10:52; Start 08/14/21 at 10:00; Stop 08/14/21 at 10:13; Status DC Gabapentin (Neurontin) 300 mg BID PO ; Start 08/14/21 at 21:00 Methylprednisolone (Medrol) 8 mg BID PO ; Start 08/14/21 at 09:00; Stop 08/14/21 at 21:01; Status UNV Methylprednisolone (Medrol) 4 mg BIDPCLD PO ; Start 08/14/21 at 12:30; Stop 08/14/21 at 17:31; Status UNV Methylprednisolone (Medrol) 4 mg TIDPC PO ; Start 08/15/21 at 08:30; Stop 08/15/21 at 17:31; Status UNV Methylprednisolone (Medrol) 8 mg QHS PO ; Start 08/15/21 at 21:00; Stop 08/15/21 at 21:01; Status UNV Methylprednisolone (Medrol) 4 mg QIDAFTMEAL PO ; Start 08/16/21 at 09:00; Stop 08/16/21 at 21:01; Status UNV Methylprednisolone (Medrol) 4 mg TID PO ; Start 08/17/21 at 09:00; Stop 07/30 07/20 at 21:01; Status UNV Methylprednisolone (Medrol) 4 mg BID PO ; Start 08/18/21 at 09:00; Stop 08/18/21 at 21:01; Status UNV Methylprednisolone (Medrol) 4 mg DAILY PO ; Start 08/19/21 at 09:00; Stop 08/19/21 at 09:01; Status UNV Active Scripts Active Reported Proair Hfa Inhaler (Albuterol Sulfate) 8.5 Gm Hfa.aer.ad 1 Puff INH PRN Q6HRS PA N Symbicort 160-4.5 Mcg Inhaler (Budesonide/Formoterol Fumarate) 10.2 Gm Hfa.aer.ad 2 Puff IH BID Venlafaxine Hcl Er (Venlafaxine Hcl) 75 Mg Cap.er.24h 1 Cap PO DAILY Flomax (Tamsulosin Hcl) 0.4 Mg Cap.er.24h 1 Cap PO DAILY Nicardipine Hcl 30 Mg Capsule 30 Mg PO TID Lutein-Zeaxanthin 25-5 Mg Sfgl (Lutein/Zeaxanthin) 1 Each Capsule 1 Each PO BID Montelukast Sodium Tablet (Montelukast Sodium) 10 Mg Tablet 10 Mg PO HS Metformin Hcl 500 Mg Tablet 500 Mg PO BIDWMEALS Hydrocodone-Apap 5-325 (Hydrocodone Bit/Acetaminophen) 1 Tab Tablet 1 Tab PO PRN Q6HRS PRN Colace (Docusate Sodium) 100 Mg Capsule 1 Cap PO BID 30 Days Diclo Gel (Diclofenac Sodium) 1 Each Kit 1 Each TP TID PRN PRN B-12 (Cyanocobalamin (Vitamin B-12)) 1,000 Mcg Tablet.er 1 Tab PO DAILY 30 Days Vitamin D3 (Vitamin D) 25 Mcg Tablet 25 Mcg PO BID 1,000 UNITS = 25 MCG Zyrtec (Cetirizine Hcl) 10 Mg Tablet 1 Tab PO DAILY Thera Tears (Carboxymethylcellulose Sodium) 15 Ml Drops 1 Drop EACHEYE QID Miralax (Polyethylene Glycol 3350) 17 Gm Powd.pack 1 Packet PO DAILY Aspirin 81 Mg Tab.chew 1 Tab PO DAILY Symbicort 160-4.5 Mcg Inhaler (Budesonide/Formoterol Fumarate) 10.2 Gm Hfa.aer.ad 2 Puff IH BID Pantoprazole Sodium 40 Mg Tablet.dr 40 Mg PO Rapaflo (Silodosin) 8 Mg Capsule 1 Cap PO DAILY Atorvastatin Calcium 40 Mg Tablet 1 Tab PO DAILY Spironolactone 50 Mg Tablet 1 Tab PO DAILY Xarelto (Rivaroxaban) 20 Mg Tablet 20 Mg PO DAILY Carvedilol 25 Mg Tablet 25 Mg PO BIDWMEALS Flonase Allergy Relief (Fluticasone Propionate) 9.9 Ml [place].susp 2 Sprays NS DAILY Albuterol Sulfate Neb Soln (Albuterol Sulfate) 2.5 Mg/3 Ml Vial.neb 1 Vial NEB PRN Q4HRS Vitals/I & O Vital Sign - Last 24 Hours 08/13/21 08/13/21 08/13/21 08/13/21 15:00 16:08 16:53 17:24 Temp 97.6 97.6 Pulse 72 72 Resp 18 B/P (MAP) 133/64 (87) 133/64 Pulse Ox 96 99 O2 Delivery Room Air Room Air Room Air 08/13/21 08/13/21 08/13/21 08/13/21 17:53 19:00 19:20 19:44 Temp 97.7 97.7 Pulse 75 Resp 18 B/P (MAP) 144/76 (98) Pulse Ox 94 99 99 O2 Delivery Room Air Room Air Nasal Cannula Nasal Cannula O2 Flow Rate 2.0 2.0 08/13/21 08/13/21 08/13/21 08/13/21 19:50 20:00 20:14 21:30 Pulse Ox 99 99 O2 Delivery Nasal Cannula Nasal Cannula Nasal Cannula Room Air O2 Flow Rate 2.0 2.0 2.0 08/13/21 08/13/21 08/13/21 08/14/21 21:59 22:29 23:03 01:55 Temp 98.3 98.3 Pulse 77 Resp 20 18 B/P (MAP) 177/93 (121) Pulse Ox 99 99 92 92 O2 Delivery Nasal Cannula Nasal Cannula Nasal Cannula Nasal Cannula O2 Flow Rate 2.0 2.0 2.0 2.0 08/14/21 08/14/21 08/14/21 08/14/21 02:25 03:00 03:24 03:31 Temp 98.4 98.4 Pulse 77 Resp 15 18 15 B/P (MAP) 195/92 (126) Pulse Ox 95 92 95 95 O2 Delivery Nasal Cannula Nasal Cannula Nasal Cannula Nasal Cannula O2 Flow Rate 2.0 2.0 2.0 2.0 08/14/21 08/14/21 08/14/21 08/14/21 03:36 07:00 07:27 07:27 Temp 97.9 97.9 Pulse 77 84 Resp 22 B/P (MAP) 195/92 200/91 (127) Pulse Ox 94 94 94 O2 Delivery Room Air Room Air Room Air 08/14/21 08/14/21 08/14/21 08/14/21 07:45 08:53 08:55 08:56 Pulse 84 84 B/P (MAP) 200/91 200/91 O2 Delivery Nasal Cannula Room Air O2 Flow Rate 2.0 08/14/21 08/14/21 08/14/21 08/14/21 09:00 10:16 11:00 11:26 Temp 98.1 98.1 Pulse 84 65 Resp 20 B/P (MAP) 200/91 149/71 (97) Pulse Ox 95 O2 Delivery Room Air Room Air Room Air Intake and Output 08/13/21 08/13/21 08/14/21 15:00 23:00 07:00 Intake Total 550 ml 250 ml 350 ml Output Total 900 ml Balance 550 ml 250 ml -550 ml Justifications for Admission Other Justification LIZBETH DON [employer]ECTIVE Aug 14, 2021 15:02
[2021-08-14] MEDS: methylPREDNISolone 4 MG TABLET. PO SCH ×4 (15:24→21:29)
[2021-08-14] MEDS: RIVAROXABAN 10 MG TABLET. PO SCH (16:45)
[2021-08-14 19:20] VITALS: BP 155/80
[2021-08-14] MEDS: ATORVASTATIN CALCIUM 40 MG TABLET. PO SCH (21:29)
[2021-08-14] MEDS: MONTELUKAST SODIUM 10 MG TABLET. PO SCH (21:29)
[2021-08-14] MEDS: GABAPENTIN 300 MG CAPSULE. PO SCH (21:29)
[2021-08-14 23:24] VITALS: BP 180/91
[2021-08-15] VITALS (7 sets, daily range): BP systolic 143–195; BP diastolic 67–103
[2021-08-15] MEDS: CYCLOBENZAPRINE 10 MG TABLET. PO PRN ×3 (00:42→16:19)
[2021-08-15] MEDS: hydrALAZINE 20 MG/ML VIAL. IVP PRN ×2 (00:43→08:29)
[2021-08-15] MEDS: ALBUTEROL SULFATE 2.5 MG/3 ML NEBU. NEB SCH ×4 (07:34→20:15)
[2021-08-15] MEDS: BUDESONIDE 0.5 MG/2 ML NEBU. NEB SCH ×2 (07:34→20:15)
[2021-08-15] MEDS: POLYETHYLENE GLYCOL 3350 17 GM PACKET. PO SCH (08:20)
[2021-08-15] MEDS: PANTOPRAZOLE 40 MG TABLET.DR. PO SCH (08:20)
[2021-08-15] MEDS: HYDROcodone/APAP 10/325 1 TAB TABLET PO PRN ×3 (08:21→21:30)
[2021-08-15] MEDS: FLUTICASONE 50MCG/NASAL SPRAY 16GM BOTTLE. NS SCH (08:22)
[2021-08-15] MEDS: CARVEDILOL 12.5 MG TABLET. PO SCH ×2 (08:23→16:20)
[2021-08-15] MEDS: VENLAFAXINE XR 37.5 MG CAP.ER.24H. PO SCH (08:23)
[2021-08-15] MEDS: ASPIRIN CHEWABLE 81 MG TABLET. PO SCH (08:23)
[2021-08-15] MEDS: metFORMIN 500 MG TABLET PO SCH ×2 (08:23→16:20)
[2021-08-15] MEDS: CETIRIZINE HCL 10 MG TABLET. PO SCH (08:24)
[2021-08-15] MEDS: CHOLECALCIFEROL (VITAMIN D3) 1,000 UNIT TABLET PO SCH ×2 (08:24→21:19)
[2021-08-15] MEDS: DOCUSATE SODIUM 100 MG CAPSULE. PO SCH ×2 (08:24→21:19)
[2021-08-15] MEDS: SPIRONOLACTONE 25 MG TABLET PO SCH (08:24)
[2021-08-15] MEDS: TAMSULOSIN 0.4 MG CAP.ER.24H. PO SCH (08:25)
[2021-08-15] MEDS: methylPREDNISolone 4 MG TABLET. PO SCH ×3 (08:25→16:19)
[2021-08-15] MEDS: GABAPENTIN 300 MG CAPSULE. PO SCH ×2 (08:25→21:20)
[2021-08-15] MEDS: CYANOCOBALAMIN (VITAMIN B-12) 1,000 MCG TABLET. PO SCH (08:25)
--- NOTE | 2021-08-15 12:31 | PDOC ---
[facility] PROGRESS NOTE Date of Service DOS: DATE: 08/15/21 TIME: 12:27 Chief Complaint Chief Complaint Intractable back pain, unable to ambulate, consult Pain clinic and Neurosurg who had been following, Prior CVA, minimal right residual, mostly sensory, has been taking Xarelto to prevent further CVA, he has been having this on hold DM2 obese, htn depression, anxiety nerve pain History of Present Illness History of Present Illness new electric shock pain to right side to right groin. He motions that he gets a shock-like pain for a few seconds, and he traces the L1 dermatome on the right side started Gabapentin - and he has very good imrpovement in pain, feels well, mental status has not changed no lethargy, no confusion Neurosurg following, do well surgery done yesterday, pain better, feels sore today s, s/p surg decompression and laminectomy OOB to chair will advance diet, start PT and OT, neurosurg following Vitals/I&O Vitals/I&O: Vital Signs Date Time Temp Pulse Resp B/P (MAP) Pulse Ox O2 Delivery O2 Flow Rate FiO2 08/15/21 11:28 Room Air 08/15/21 11:20 97.5 79 18 143/78 (99) 95 97.5 08/15/21 07:55 2.0 I & O 08/14/21 08/14/21 08/15/21 15:00 23:00 07:00 Intake Total 320 ml Output Total 950 ml Balance -630 ml Physical Exam General: Oriented X3, Cooperative, No acute distress Heart: No murmurs, Other Lungs: Clear Extremities: No clubbing, No edema, Normal pulses Skin: Other (dressing changed, minimal oozing) Assessment and Plan Assessmemt and Plan Problems Medical Problems: (1) Intractable low back pain Status: Acute (2) Sciatic leg pain Status: Acute Comment Review of Relevant I have reviewed the following items beau (where applicable) has been applied. Medications: Current Medications Medications (Trade) Dose Ordered Sig/Yariel Route PRN Reason Start Time Stop Time Status Last Admin Dose Admin Gabapentin (Neurontin) 300 mg BID PO 08/14/21 21:00 08/15/21 08:25 Methylprednisolone (Medrol) 4 mg BIDPCLD PO 08/14/21 12:30 08/14/21 17:31 DC 08/14/21 18:38 Methylprednisolone (Medrol) 4 mg TIDPC PO 08/15/21 08:30 08/15/21 17:31 08/15/21 08:25 Rivaroxaban (Xarelto) 20 mg DAILYWSUP PO 08/14/21 17:00 08/14/21 16:45 Justifications for Admission Other Justification ZEKE BARRAGAN MD Aug 15, 2021 12:31
[2021-08-15] MEDS ORDERED: ANTI-COAG MONITOR BY PHARMACY. MC PRN (12:45)
[2021-08-15] MEDS: RIVAROXABAN 10 MG TABLET. PO SCH (16:19)
[2021-08-15] MEDS ORDERED: methylPREDNISolone 4 MG TABLET. PO SCH (21:00)
[2021-08-15] MEDS: ATORVASTATIN CALCIUM 40 MG TABLET. PO SCH (21:19)
[2021-08-15] MEDS: MONTELUKAST SODIUM 10 MG TABLET. PO SCH (21:19)
[2021-08-16 03:23] VITALS: BP 174/89
[2021-08-16 07:00] VITALS: BP 171/93
[2021-08-16] MEDS: BUDESONIDE 0.5 MG/2 ML NEBU. NEB SCH ×2 (07:07→19:47)
[2021-08-16] MEDS: ALBUTEROL SULFATE 2.5 MG/3 ML NEBU. NEB SCH ×4 (07:07→19:47)
[2021-08-16] MEDS: FLUTICASONE 50MCG/NASAL SPRAY 16GM BOTTLE. NS SCH (10:46)
[2021-08-16] MEDS: HYDROcodone/APAP 10/325 1 TAB TABLET PO PRN ×2 (10:47→17:28)
[2021-08-16] MEDS: TAMSULOSIN 0.4 MG CAP.ER.24H. PO SCH (10:48)
[2021-08-16] MEDS: GABAPENTIN 300 MG CAPSULE. PO SCH ×2 (10:48→20:47)
[2021-08-16] MEDS: ASPIRIN CHEWABLE 81 MG TABLET. PO SCH (10:49)
[2021-08-16] MEDS: methylPREDNISolone 4 MG TABLET. PO SCH ×4 (10:49→20:47)
[2021-08-16] MEDS: CYANOCOBALAMIN (VITAMIN B-12) 1,000 MCG TABLET. PO SCH (10:50)
[2021-08-16] MEDS: CHOLECALCIFEROL (VITAMIN D3) 1,000 UNIT TABLET PO SCH ×2 (10:50→20:48)
[2021-08-16] MEDS: metFORMIN 500 MG TABLET PO SCH ×2 (10:51→17:28)
[2021-08-16] MEDS: CETIRIZINE HCL 10 MG TABLET. PO SCH (10:51)
[2021-08-16] MEDS: PANTOPRAZOLE 40 MG TABLET.DR. PO SCH (10:51)
[2021-08-16] MEDS: DOCUSATE SODIUM 100 MG CAPSULE. PO SCH ×2 (10:52→20:47)
[2021-08-16] MEDS: CARVEDILOL 12.5 MG TABLET. PO SCH ×2 (10:54→17:29)
[2021-08-16] MEDS: VENLAFAXINE XR 37.5 MG CAP.ER.24H. PO SCH (10:54)
[2021-08-16] MEDS: SPIRONOLACTONE 25 MG TABLET PO SCH (10:55)
[2021-08-16] MEDS: POLYETHYLENE GLYCOL 3350 17 GM PACKET. PO SCH (10:56)
[2021-08-16 11:00] VITALS: BP 182/85
--- NOTE | 2021-08-16 12:24 | PDOC ---
PROGRESS NOTES Date of Service DATE: 08/16/21 TIME: 12:21 Subjective Subjective POD #4 S/P laminectomy / microdiscectomy L4-5, L5- S1 continues to c/o right groin and lateral thigh pain when standing from sitting, overall feels improved denies significant pain with walking or sitting Objective Objective Vital Signs Date Time Temp Pulse Resp B/P (MAP) Pulse Ox O2 Delivery O2 Flow Rate FiO2 08/16/21 11:40 96 Room Air 08/16/21 11:00 97.4 73 18 182/85 (117) 97.4 08/15/21 07:55 2.0 Intake and Output 08/16/21 07:00 Intake Total 612 ml Output Total 1200 ml Balance -588 ml Intake Oral 612 ml Output Urine Total 1200 ml Physical Exam General: Alert, Oriented X3, Cooperative Neck: Other Neuro: Normal speech, Other (strength normal in LE, BUSTOS) Skin: Other (dressing changed, minimal oozing ) Assessment Assessment Problems Medical Problems: (1) Intractable low back pain Status: Acute (2) Sciatic leg pain Status: Acute Plan Plan of Care encouraged increased activity as tolerated PT SNF tomorrow D/W Comment Review of Relevant I have reviewed the following items beau (where applicable) has been applied. Labs Laboratory Tests Test 08/15/21 17:10 SARS-CoV-2 RNA (FRANCESCA) Negative (Negative) Laboratory Tests Test 08/15/21 17:10 SARS-CoV-2 RNA (FRANCESCA) Negative (Negative) Medications Current Medications Fentanyl Citrate (Fentanyl 2ml Vial) 75 mcg 1X ONCE IVP Last administered on 08/10/21at 21:05; Start 08/10/21 at 21:00; Stop 08/10/21 at 21:01; Status DC Methylprednisolone Sodium Succinate (SOLU-Medrol 125MG VIAL) 125 mg 1X ONCE IV Last administered on 08/10/21at 21:15; Start 08/10/21 at 21:00; Stop 08/10/21 at 21:01; Status DC Albuterol Sulfate (Ventolin Neb Soln) 2.5 mg 1X ONCE NEB Last administered on 08/10/21at 21:52; Start 08/10/21 at 22:00; Stop 08/10/21 at 22:01; Status DC Diazepam (Valium) 2 mg 1X ONCE PO Last administered on 08/11/21at 00:57; Start 08/10/21 at 23:30; Stop 08/10/21 at 23:31; Status DC Ketorolac Tromethamine (Toradol 30mg Vial) 30 mg 1X ONCE IVP Last administered on 08/11/21at 00:57; Start 08/10/21 at 23:30; Stop 08/10/21 at 23:31; Status DC Morphine Sulfate (Morphine Sulfate) 2 mg PRN Q2HR PRN IVP SEVERE PAIN 7-10 Last administered on 08/11/21at 03:06; Start 08/10/21 at 23:30; Stop 08/11/21 at 23:29; Status DC Albuterol Sulfate (Ventolin Neb Soln) 1 mg PRN Q4HRS PRN NEB SHORTNESS OF BREATH; Start 08/11/21 at 08:00; Stop 08/11/21 at 10:45; Status DC Aspirin (Aspirin Chewable) 81 mg DAILY PO Last administered on 08/16/21at 10:49; Start 08/11/21 at 09:00 Atorvastatin Calcium (Lipitor) 40 mg QHS PO Last administered on 08/15/21at 21:19; Start 08/11/21 at 21:00 Cetirizine HCl (ZyrTEC) 10 mg DAILY PO Last administered on 08/16/21 10:51; Start 08/11/21 at 09:00 Vitamin D (Vitamin D3) 1,000 unit BID PO Last administered on 08/16/21 10:50; Start 08/11/21 at 09:00 Docusate Sodium (Colace) 100 mg BID PO Last administered on 08/16/21at 10:52; Start 08/11/21 at 09:00 Acetaminophen/ Hydrocodone Bitart (Lortab 5/325) 1 tab PRN Q6HRS PRN PO MODERATE PAIN; Start 08/11/21 at 08:00 Metformin HCl (Glucophage) 500 mg BIDWMEALS PO Last administered on 08/16/21 10:51; Start 08/11/21 at 08:30 Montelukast Sodium (Singulair) 10 mg HS PO Last administered on 08/15/21at 21:19; Start 08/11/21 at 21:00 Pantoprazole Sodium (Protonix) 40 mg DAILYAC PO Last administered on 08/16/21 10:51; Start 08/11/21 at 08:30 Polyethylene Glycol (miraLAX PACKET) 17 gm DAILY PO Last administered on 08/16/21 10:56; Start 08/11/21 at 09:00 Tamsulosin HCl (Flomax) 0.4 mg DAILY PO Last administered on 08/16/21at 10:48; Start 08/11/21 at 09:00 Non-Formulary Medication (Budesonide/ Formoterol Fumarate (Symbicort 160-4.5 Mcg Inhaler)) 2 puff BID IH ; Start 08/11/21 at 09:00; Status UNV Glycerin/ Hypromellose/ Polyethylene (Artificial Tears) 1 drop PRN QID PRN OU DRY EYE; Start 08/11/21 at 08:15 Carvedilol (Coreg) 25 mg BIDWMEALS PO Last administered on 08/16/21 10:54; Start 08/11/21 at 08:30 Cyanocobalamin (Vitamin B-12) 1,000 mcg DAILY PO Last administered on 08/16/21at 10:50; Start 08/11/21 at 09:00 Diclofenac Sodium (Voltaren) 1 jodie TID PRN PRN TP PAIN; Start 08/11/21 at 08:15 Fluticasone Propionate (Flonase) 2 spray DAILY NS Last administered on 08/16at 10:46; Start 08/11/21 at 09:00 Non-Formulary Medication (Lutein/ Zeaxanthin (Lutein-Zeaxanthin 25-5 Mg Sfgl)) 1 each BID PO ; Start 08/11/21 at 09:00; Status UNV Amlodipine Besylate (Norvasc) 5 mg DAILY PO Last administered on 08/16/21at 10:53; Start 08/11/21 at 09:00 Rivaroxaban (Xarelto) 20 mg DAILYWSUP PO ; Start 08/11/21 at 17:00; Stop 08/11/21 at 08:28; Status DC Non-Formulary Medication (Silodosin (Rapaflo)) 1 cap DAILY PO ; Start 08/11/21 at 09:00; Status UNV Spironolactone (Aldactone) 50 mg DAILY PO Last administered on 08/16/21at 10:55; Start 08/11/21 at 09:00 Venlafaxine HCl (Effexor Xr) 75 mg DAILY PO Last administered on 08/16/21at 10:54; Start 08/11/21 at 09:00 Budesonide (Pulmicort) 0.5 mg RTBID NEB Last administered on 08/16/21at 07:07; Start 08/11/21 at 20:00 Albuterol Sulfate (Ventolin Neb Soln) 2.5 mg RTQID NEB Last administered on 08/16/21at 11:39; Start 08/11/21 at 12:00 Acetaminophen/ Hydrocodone Bitart (Lortab 10325) 1 tab PRN Q6HRS PRN PO SEVERE PAIN Last administered on 08/13/21at 08:56; Start 08/11/21 at 08:30; Stop 08/13/21 at 13:01; Status DC Albuterol Sulfate (Ventolin Neb Soln) 2.5 mg PRN Q4HRS PRN NEB SHORTNESS OF BREATH; Start 08/11/21 at 10:45 Cefazolin Sodium/ Dextrose 50 ml @ 100 mls/hr 1X PREOP PRN IV PRIOR TO PROCEDURE Last administered on 08/12/21at 12:12; Start 08/12/21 at 06:00; Stop 08/12/21 at 18:00; Status DC Fentanyl Citrate (Fentanyl 2ml Vial) 25 mcg PRN Q5MIN PRN IVP MILD PAIN 1-3; Start 08/12/21 at 06:00; Stop 08/13/21 at 05:59; Status DC Fentanyl Citrate (Fentanyl 2ml Vial) 50 mcg PRN Q5MIN PRN IVP MODERATE PAIN 4- 6; Start 08/12/21 at 06:00; Stop 08/13/21 at 05:59; Status DC Morphine Sulfate (Morphine Sulfate) 1 mg PRN Q10MIN PRN IVP SEVERE PAIN 7-10 Last administered on 08/12/21at 16:42; Start 08/12/21 at 06:00; Stop 08/13/21 at 05:59; Status DC Ringer's Solution 1,000 ml @ 30 mls/hr Q24H IV Last administered on 08/12/21at 06:20; Start 08/12/21 at 06:00; Stop 08/12/21 at 17:59; Status DC Hydromorphone HCl (Dilaudid) 0.5 mg PRN Q10MIN PRN IVP SEVERE PAIN 7-10, 2nd CHOICE; Start 08/12/21 at 06:00; Stop 08/13/21 at 05:59; Status DC Prochlorperazine Edisylate (Compazine) 5 mg PACU PRN PRN IVP NAUSEA, MRX1; Start 08/12/21 at 06:00; Stop 08/13/21 at 05:59; Status DC Cefazolin Sodium 1 gm/Sodium Chloride 500 ml @ 500 mls/hr 1X ONCE IRR ; Start 08/12/21 at 06:00; Stop 08/12/21 at 06:59; Status Cancel Cefazolin Sodium 1 gm/Sodium Chloride 1,000 ml @ 1,000 mls/hr 1X ONCE IRR Last administered on 08/12/21at 12:41; Start 08/12/21 at 06:00; Stop 08/12/21 at 06:59; Status DC Gelatin (Gelfoam Size 100) 1 each STK-MED ONCE .ROUTE Last administered on 08/12/21at 12:41; Start 08/12/21 at 07:20; Stop 08/12/21 at 07:21; Status DC Bupivacaine HCl/ Epinephrine Bitart (Sensorcain-Epi 0.5%-1:603948 Mpf) 30 ml STK-MED ONCE .ROUTE Last administered on 08/12/21at 12:41; Start 08/12/21 at 07:20; Stop 08/12/21 at 07:21; Status DC Ketorolac Tromethamine (Toradol Im) 60 mg STK-MED ONCE .ROUTE Last administered on 08/12/21at 12:41; Start 08/12/21 at 07:20; Stop 08/12/21 at 07:21; Status DC Thrombin 20,000 unit STK-MED ONCE TP Last administered on 08/12/21at 12:41; Start 08/12/21 at 07:20; Stop 08/12/21 at 07:21; Status DC Morphine Sulfate (Morphine Sulfate) 2 mg STK-MED ONCE .ROUTE ; Start 08/12/21 at 08:17; Stop 08/12/21 at 08:17; Status DC Morphine Sulfate (Morphine Sulfate) 2 mg 1X ONCE IVP Last administered on 08/12/21at 08:23; Start 08/12/21 at 08:30; Stop 08/12/21 at 08:31; Status DC Hydromorphone HCl (Dilaudid) 2 mg STK-MED ONCE .ROUTE ; Start 08/12/21 at 09:01; Stop 08/12/21 at 09:02; Status DC Hydromorphone HCl (Dilaudid) 2 mg 1X ONCE IM ; Start 08/12/21 at 09:30; Stop 08/12/21 at 09:31; Status DC Propofol (Diprivan) 200 mg STK-MED ONCE IV ; Start 08/12/21 at 09:48; Stop 08/12/21 at 09:48; Status DC Propofol 50 ml @ As Directed STK-MED ONCE IV ; Start 08/12/21 at 09:48; Stop 08/12/21 at 09:48; Status DC Hydromorphone HCl (Dilaudid) 2 mg 1X ONCE IVP Last administered on 08/12/21at 09:57; Start 08/12/21 at 10:00; Stop 08/12/21 at 10:01; Status DC Phenylephrine HCl (Mark-Synephrine Inj) 10 mg STK-MED ONCE .ROUTE ; Start 08/12/21 at 09:55; Stop 08/12/21 at 09:55; Status DC Dexamethasone Sodium Phosphate (Decadron) 4 mg STK-MED ONCE .ROUTE ; Start 08/12/21 at 10:00; Stop 08/12/21 at 10:01; Status DC Glycopyrrolate (Robinul) 1 mg STK-MED ONCE .ROUTE ; Start 08/12/21 at 10:00; Stop 08/12/21 at 10:01; Status DC Lidocaine HCl (Lidocaine Pf 2% Vial) 5 ml STK-MED ONCE .ROUTE ; Start 08/12/21 at 10:02; Stop 08/12/21 at 10:03; Status DC Rocuronium [place] (Zemuron) 50 mg STK-MED ONCE .ROUTE ; Start 08/12/21 at 1 0:02; Stop 08/12/21 at 10:03; Status DC Remifentanil HCl (Ultiva) 2 mg STK-MED ONCE IV ; Start 08/12/21 at 11:14; Stop 08/12/21 at 11:15; Status DC Albuterol/ Ipratropium (Duoneb) 3 ml 1X ONCE NEB Last administered on 08/12/21at 11:20; Start 08/12/21 at 11:15; Stop 08/12/21 at 11:17; Status DC Albuterol/ Ipratropium (Duoneb) 3 ml STK-MED ONCE .ROUTE ; Start 08/12/21 at 1 1:17; Stop 08/12/21 at 11:18; Status DC Ephedrine Sulfate (ePHEDrine PF IN SALINE SYRINGE) 50 mg STK-MED ONCE IV ; Start 08/12/21 at 12:21; Stop 08/12/21 at 12:21; Status DC Propofol 50 ml @ As Directed STK-MED ONCE IV ; Start 08/12/21 at 12:46; Stop 08/12/21 at 12:47; Status DC Remifentanil HCl (Ultiva) 1 mg STK-MED ONCE IV ; Start 08/12/21 at 13:43; Stop 08/12/21 at 13:44; Status DC Phenylephrine HCl (Mark-Synephrine Inj) 10 mg STK-MED ONCE .ROUTE ; Start 08/12/21 at 14:27; Stop 08/12/21 at 14:28; Status DC Sevoflurane (Ultane) 60 ml STK-MED ONCE IH ; Start 08/12/21 at 14:35; Stop 08/12/21 at 14:35; Status DC Neostigmine [place] (Neostigmine Methylsulfate) 5 mg STK-MED ONCE .ROUTE ; Start 08/12/21 at 14:36; Stop 08/12/21 at 14:37; Status DC Ondansetron HCl (Zofran) 4 mg STK-MED ONCE .ROUTE ; Start 08/12/21 at 14:49; Stop 08/12/21 at 14:49; Status DC Remifentanil HCl (Ultiva) 1 mg STK-MED ONCE IV ; Start 08/12/21 at 15:06; Stop 08/12/21 at 15:07; Status DC Fentanyl Citrate (Fentanyl 2ml Vial) 50 mcg PRN Q2HR PRN IVP PAIN Last administered on 08/14/21at 03:00; Start 08/12/21 at 16:00 Acetaminophen (Tylenol) 650 mg PRN Q6HRS PRN PO MILD PAIN / TEMP > 100.3'F; Start 08/12/21 at 16:00 Al Hydroxide/Mg Hydroxide (Mylanta Plus Xs) 30 ml PRN Q3HRS PRN PO HEARTBURN / GAS; Start 08/12/21 at 16:00 Calcium Carbonate/ Glycine (Tums) 500 mg PRN Q3HRS PRN PO INDIGESTION; Start 08/12/21 at 16:00 Diphenhydramine HCl (Benadryl) 25 mg PRN Q6HRS PRN PO ITCHING Last administered on 08/14/21at 01:55; Start 08/12/21 at 16:00 Naloxone HCl (Narcan) 0.1 mg PRN Q2MIN PRN IV SEE COMMENTS; Start 08/12/21 at 16:00 Sodium Chloride (Normal Saline Flush) 3 ml QSHIFT PRN IV AFTER MEDS AND BLOOD DRAWS; Start 08/12/21 at 16:00 Docusate Sodium (Colace) 100 mg BID PO ; Start 08/12/21 at 21:00; Stop 08/13/21 at 08:38; Status DC Magnesium Hydroxide (Milk Of Magnesia) 2,400 mg PRN Q12HR PRN PO CONSTIPATION; Start 08/12/21 at 16:00 Morphine Sulfate (Morphine Sulfate) 2 mg STK-MED ONCE .ROUTE ; Start 08/12/21 at 16:50; Stop 08/12/21 at 16:50; Status DC Acetaminophen/ Hydrocodone Bitart (Lortab 10/325) 1 tab PRN Q4HRS PRN PO SEVERE PAIN Last administered on 08/16/21at 10:47; Start 08/13/21 at 13:00 Cyclobenzaprine HCl (Flexeril) 10 mg PRN Q6HRS PRN PO MUSCLE SPASMS Last administered on 08/15/21at 16:19; Start 08/13/21 at 21:00 Cyclobenzaprine HCl (Flexeril) 10 mg PRN Q6HRS PRN PO MUSCLE SPASMS; Start 08/13/21 at 21:00; Status Cancel Hydralazine HCl (Apresoline Inj) 10 mg PRN Q4HRS PRN IVP ELEVATED BP, SEE COMMENTS Last administered on 08/15/21at 08:29; Start 08/14/21 at 03:30 Gabapentin (Neurontin) 300 mg 1X ONCE PO Last administered on 08/14/21at 10:52; Start 08/14/21 at 10:00; Stop 08/14/21 at 10:13; Status DC Gabapentin (Neurontin) 300 mg BID PO Last administered on 08/16/21at 10:48; Start 08/14/21 at 21:00 Methylprednisolone (Medrol) 8 mg BID PO Last administered on 08/14/21at 21:29; Start 08/14/21 at 09:00; Stop 08/14/21 at 21:01; Status DC Methylprednisolone (Medrol) 4 mg BIDPCLD PO Last administered on 08/14/21at 18:38; Start 08/14/21 at 12:30; Stop 08/14/21 at 17:31; Status DC Methylprednisolone (Medrol) 4 mg TIDPC PO Last administered on 08/15/21at 16:19; Start 08/15/21 at 08:30; Stop 08/15/21 at 17:31; Status DC Methylprednisolone (Medrol) 8 mg QHS PO Last administered on 08/15/21at 21:19; Start 08/15/21 at 21:00; Stop 08/15/21 at 21:01; Status DC Methylprednisolone (Medrol) 4 mg QIDAFTMEAL PO Last administered on 08/16/21at 10:49; Start 08/16/21 at 09:00; Stop 08/16/21 at 21:01 Methylprednisolone (Medrol) 4 mg TID PO ; Start 08/17/21 at 09:00; Stop 08/17/21 at 21:01 Methylprednisolone (Medrol) 4 mg BID PO ; Start 08/18/21 at 09:00; Stop 08/18/21 at 21:01 Methylprednisolone (Medrol) 4 mg DAILY PO ; Start 08/19/21 at 09:00; Stop 08/19/21 at 09:01 Rivaroxaban (Xarelto) 20 mg DAILYWSUP PO Last administered on 08/15/21at 16:19; Start 08/14/21 at 17:00 Info (Anti-Coagulation Monitoring By Pharmacy) 1 each PRN DAILY PRN MC PER PROTOCOL Last administered on 08/15/21at 14:03; Start 08/15/21 at 12:45 Active Scripts Active Reported Proair Hfa Inhaler (Albuterol Sulfate) 8.5 Gm Hfa.aer.ad 1 Puff INH PRN Q6HRS PRN Symbicort 160-4.5 Mcg Inhaler (Budesonide/Formoterol Fumarate) 10.2 Gm Hfa.aer. ad 2 Puff IH BID Venlafaxine Hcl Er (Venlafaxine Hcl) 75 Mg Cap.er.24h 1 Cap PO DAILY Flomax (Tamsulosin Hcl) 0.4 Mg Cap.er.24h 1 Cap PO DAILY Nicardipine Hcl 30 Mg Capsule 30 Mg PO TID Lutein-Zeaxanthin 25-5 Mg Sfgl (Lutein/Zeaxanthin) 1 Each Capsule 1 Each PO BID Montelukast Sodium Tablet (Montelukast Sodium) 10 Mg Tablet 10 Mg PO HS Metformin Hcl 500 Mg Tablet 500 Mg PO BIDWMEALS Hydrocodone-Apap 5-325 (Hydrocodone Bit/Acetaminophen) 1 Tab Tablet 1 Tab PO PRN Q6HRS PRN Colace (Docusate Sodium) 100 Mg Capsule 1 Cap PO BID 30 Days Diclo Gel (Diclofenac Sodium) 1 Each Kit 1 Each TP TID PRN PRN B-12 (Cyanocobalamin (Vitamin B-12)) 1,000 Mcg Tablet.er 1 Tab PO DAILY 30 Days Vitamin D3 (Vitamin D) 25 Mcg Tablet 25 Mcg PO BID 1,000 UNITS = 25 MCG Zyrtec (Cetirizine Hcl) 10 Mg Tablet 1 Tab PO DAILY Thera Tears (Carboxymethylcellulose Sodium) 15 Ml Drops 1 Drop EACHEYE QID Miralax (Polyethylene Glycol 3350) 17 Gm Powd.pack 1 Packet PO DAILY Aspirin 81 Mg Tab.chew 1 Tab PO DAILY Symbicort 160-4.5 Mcg Inhaler (Budesonide/Formoterol Fumarate) 10.2 Gm Hfa.aer.ad 2 Puff IH BID Pantoprazole Sodium 40 Mg Tablet.dr 40 Mg PO Rapaflo (Silodosin) 8 Mg Capsule 1 Cap PO DAILY Atorvastatin Calcium 40 Mg Tablet 1 Tab PO DAILY Spironolactone 50 Mg Tablet 1 Tab PO DAILY Xarelto (Rivaroxaban) 20 Mg Tablet 20 Mg PO DAILY Carvedilol 25 Mg Tablet 25 Mg PO BIDWMEALS Flonase Allergy Relief (Fluticasone Propionate) 9.9 Ml [place].susp 2 Sprays NS DAILY Albuterol Sulfate Neb Soln (Albuterol Sulfate) 2.5 Mg/3 Ml Vial.neb 1 Vial NEB PRN Q4HRS Vitals/I & O Vital Sign - Last 24 Hours 08/15/21 08/15/21 08/15/21 08/15/21 15:00 15:44 16:19 16:20 Temp 97.5 97.5 Pulse 85 83 Resp 18 B/P (MAP) 146/67 (93) 146/67 Pulse Ox 95 O2 Delivery Room Air Room Air Room Air 08/15/21 08/15/21 08/15/21 08/15/21 16:56 19:20 20:05 20:15 Temp 98.0 98.0 Pulse 81 Resp 18 B/P (MAP) 153/72 (99) Pulse Ox 91 O2 Delivery Room Air Room Air Room Air Room Air 08/15/21 08/15/21 08/15/21 08/16/21 20:16 21:30 23:10 03:23 Temp 98.1 98.0 98.1 98.0 Pulse 81 73 Resp 18 18 B/P (MAP) 153/72 (99) 174/89 (117) Pulse Ox 94 94 O2 Delivery Room Air Room Air Room Air Room Air 08/16/21 08/16/21 08/16/21 08/16/21 07:00 07:08 10:47 10:53 Temp 97.6 97.6 Pulse 73 73 Resp 18 B/P (MAP) 171/93 (119) 171/93 Pulse Ox 93 96 O2 Delivery Room Air Room Air Room Air 08/16/21 08/16/21 08/16/21 10:54 11:00 11:40 Temp 97.4 97.4 Pulse 73 73 Resp 18 B/P (MAP) 171/93 182/85 (117) Pulse Ox 94 96 O2 Delivery Room Air Room Air Intake and Output 08/15/21 08/15/21 08/16/21 15:00 23:00 07:00 Intake Total 250 ml 362 ml Output Total 450 ml 200 ml 550 ml Balance -200 ml -200 ml -188 ml Justifications for Admission Other Justification LIZBETH DON [employer] COORDINATOR Aug 16, 2021 12:23
--- NOTE | 2021-08-16 13:51 | PDOC ---
[facility] PROGRESS NOTE Date of Service DOS: DATE: 08/16/21 TIME: 13:48 Chief Complaint Chief Complaint Intractable back pain, unable to ambulate, consult Pain clinic and Neurosurg who had been following, Prior CVA, minimal right residual, mostly sensory, has been taking Xarelto to prevent further CVA, he has been having this on hold DM2 obese, htn depression, anxiety nerve pain History of Present Illness History of Present Illness 08/16/21 No acute events overnight. Patient seen and examined bedside working with physical therapy. Dressings are clean dry and intact. Patient continues to complain of which appears to be like neuropraxia. Gabapentin started tolerated well. Plan for SNF tomorrow. Pending Covid test. Patient's chart, labs, images were reviewed and discussed with RN In addition to my E/M visit, advance care planning done with A total time of 20 minutes was spent from 9:00 to 920 face to face in discussion regarding the patient's goals of care, CODE STATUS. new electric shock pain to right side to right groin. He motions that he gets a shock-like pain for a few seconds, and he traces the L1 dermatome on the right side started Gabapentin - and he has very good imrpovement in pain, feels well, mental status has not changed no lethargy, no confusion Neurosurg following, do well surgery done yesterday, pain better, feels sore today s, s/p surg decompression and laminectomy OOB to chair will advance diet, start PT and OT, neurosurg following Vitals/I&O Vitals/I&O: Vital Signs Date Time Temp Pulse Resp B/P (MAP) Pulse Ox O2 Delivery O2 Flow Rate FiO2 08/16/21 13:12 96 Room Air 2.0 08/16/21 11:00 97.4 73 18 182/85 (117) 97.4 I & O 08/15/21 08/15/21 08/16/21 15:00 23:00 07:00 Intake Total 250 ml 362 ml Output Total 450 ml 200 ml 550 ml Balance -200 ml -200 ml -188 ml Physical Exam General: Alert, Oriented X3, Cooperative Heart: No murmurs, Other Lungs: Clear Extremities: No clubbing, No edema, Normal pulses Skin: Other Labs Labs: Laboratory Tests Test 08/15/21 17:10 SARS-CoV-2 RNA (FRANCESCA) Negative (Negative) Assessment and Plan Assessmemt and Plan Problems Medical Problems: (1) Intractable low back pain Status: Acute (2) Sciatic leg pain Status: Acute Comment Review of Relevant I have reviewed the following items beau (where applicable) has been applied. Medications: Current Medications Medications (Trade) Dose Ordered Sig/Yariel Route PRN Reason Start Time Stop Time Status Last Admin Dose Admin Methylprednisolone (Medrol) 8 mg QHS PO 08/15/21 21:00 08/15/21 21:01 DC 08/15/21 21:19 Methylprednisolone (Medrol) 4 mg QIDAFTMEAL PO 08/16/21 09:00 08/16/21 21:01 08/16/21 10:49 Justifications for Admission Other Justification ROYA PALM MD Aug 16, 2021 13:51
[2021-08-16 15:00] VITALS: BP 135/68
[2021-08-16] MEDS: RIVAROXABAN 10 MG TABLET. PO SCH (17:29)
[2021-08-16] MEDS: CYCLOBENZAPRINE 10 MG TABLET. PO PRN (17:32)
[2021-08-16 19:00] VITALS: BP 155/76
[2021-08-16] MEDS: MONTELUKAST SODIUM 10 MG TABLET. PO SCH (20:47)
[2021-08-16] MEDS: ATORVASTATIN CALCIUM 40 MG TABLET. PO SCH (20:48)
[2021-08-16] MEDS: fentaNYL PF VIAL 100 MCG/2 ML VIAL IVP PRN (20:50)
[2021-08-16 23:22] VITALS: BP 171/86
[2021-08-17] MEDS: HYDROcodone/APAP 10/325 1 TAB TABLET PO PRN ×4 (02:31→20:11)
[2021-08-17 02:32] VITALS: BP 184/103
[2021-08-17] MEDS: hydrALAZINE 20 MG/ML VIAL. IVP PRN (02:32)
[2021-08-17 07:00] VITALS: BP 191/89
[2021-08-17] MEDS: ALBUTEROL SULFATE 2.5 MG/3 ML NEBU. NEB SCH ×4 (07:37→19:53)
[2021-08-17] MEDS: BUDESONIDE 0.5 MG/2 ML NEBU. NEB SCH ×2 (07:37→19:53)
[2021-08-17] MEDS: FLUTICASONE 50MCG/NASAL SPRAY 16GM BOTTLE. NS SCH (09:00)
[2021-08-17] MEDS: GABAPENTIN 300 MG CAPSULE. PO SCH ×2 (10:08→20:11)
[2021-08-17] MEDS: metFORMIN 500 MG TABLET PO SCH ×2 (10:08→18:18)
[2021-08-17] MEDS: POLYETHYLENE GLYCOL 3350 17 GM PACKET. PO SCH (10:09)
[2021-08-17] MEDS: methylPREDNISolone 4 MG TABLET. PO SCH ×3 (10:10→20:11)
[2021-08-17] MEDS: CARVEDILOL 12.5 MG TABLET. PO SCH ×2 (10:10→18:19)
[2021-08-17] MEDS: CYANOCOBALAMIN (VITAMIN B-12) 1,000 MCG TABLET. PO SCH (10:10)
[2021-08-17] MEDS: ASPIRIN CHEWABLE 81 MG TABLET. PO SCH (10:10)
[2021-08-17] MEDS: CHOLECALCIFEROL (VITAMIN D3) 1,000 UNIT TABLET PO SCH ×2 (10:10→20:11)
[2021-08-17] MEDS: VENLAFAXINE XR 37.5 MG CAP.ER.24H. PO SCH (10:11)
[2021-08-17] MEDS: PANTOPRAZOLE 40 MG TABLET.DR. PO SCH (10:11)
[2021-08-17] MEDS: DOCUSATE SODIUM 100 MG CAPSULE. PO SCH ×2 (10:11→20:11)
[2021-08-17] MEDS: CETIRIZINE HCL 10 MG TABLET. PO SCH (10:11)
[2021-08-17] MEDS: SPIRONOLACTONE 25 MG TABLET PO SCH (10:12)
[2021-08-17] MEDS: TAMSULOSIN 0.4 MG CAP.ER.24H. PO SCH (10:12)
[2021-08-17 11:00] VITALS: BP 196/97
--- NOTE | 2021-08-17 12:51 | PDOC ---
PROGRESS NOTES Date of Service DATE: 08/17/21 TIME: 12:50 Subjective Subjective POD #5 S/P laminectomy / microdiscectomy L4-5, L5- S1 resting in bed continues to c/o right groin and lateral thigh pain when standing from sitting, overall feels improved denies significant pain with walking Objective Objective Vital Signs Date Time Temp Pulse Resp B/P (MAP) Pulse Ox O2 Delivery O2 Flow Rate FiO2 08/17/21 11:39 98 Room Air 08/17/21 11:00 97.4 78 18 196/97 (130) 97.4 08/17/21 08:00 2.0 Intake and Output 08/17/21 07:00 Intake Total 300 ml Output Total 500 ml Balance -200 ml Intake Oral 300 ml Output Urine Total 500 ml Physical Exam General: Alert, Oriented X3, Cooperative MUSCULOSKELETAL: Other (BUSTOS) Neuro: Normal speech Skin: Other (Dressing C,D,I, Flat) Assessment Assessment Problems Medical Problems: (1) Intractable low back pain Status: Acute (2) Sciatic leg pain Status: Acute Plan Plan of Care dc to SNF today F/U 2 weeks Comment Review of Relevant I have reviewed the following items beau (where applicable) has been applied. Labs Laboratory Tests Test 08/15/21 17:10 SARS-CoV-2 RNA (FRANCESCA) Negative (Negative) Medications Current Medications Fentanyl Citrate (Fentanyl 2ml Vial) 75 mcg 1X ONCE IVP Last administered on 08/10/21at 21:05; Start 08/10/21 at 21:00; Stop 08/10/21 at 21:01; Status DC Methylprednisolone Sodium Succinate (SOLU-Medrol 125MG VIAL) 125 mg 1X ONCE IV Last administered on 08/10/21at 21:15; Start 08/10/21 at 21:00; Stop 08/10/21 at 21:01; Status DC Albuterol Sulfate (Ventolin Neb Soln) 2.5 mg 1X ONCE NEB Last administered on 08/10/21at 21:52; Start 08/10/21 at 22:00; Stop 08/10/21 at 22:01; Status DC Diazepam (Valium) 2 mg 1X ONCE PO Last administered on 08/11/21at 00:57; Start 08/10/21 at 23:30; Stop 08/10/21 at 23:31; Status DC Ketorolac Tromethamine (Toradol 30mg Vial) 30 mg 1X ONCE IVP Last administered on 08/11/21at 00:57; Start 08/10/21 at 23:30; Stop 08/10/21 at 23:31; Status DC Morphine Sulfate (Morphine Sulfate) 2 mg PRN Q2HR PRN IVP SEVERE PAIN 7-10 Last administered on 08/11/21at 03:06; Start 08/10/21 at 23:30; Stop 08/11/21 at 23:29; Status DC Albuterol Sulfate (Ventolin Neb Soln) 1 mg PRN Q4HRS PRN NEB SHORTNESS OF BREATH; Start 08/11/21 at 08:00; Stop 08/11/21 at 10:45; Status DC Aspirin (Aspirin Chewable) 81 mg DAILY PO Last administered on 08/17/21at 10:10; Start 08/11/21 at 09:00 Atorvastatin Calcium (Lipitor) 40 mg QHS PO Last administered on 08/16/21at 20:48; Start 08/11/21 at 21:00 Cetirizine HCl (ZyrTEC) 10 mg DAILY PO Last administered on 08/17/21at 10:11; Start 08/11/21 at 09:00 Vitamin D (Vitamin D3) 1,000 unit BID PO Last administered on 08/17/21at 10:10; Start 08/11/21 at 09:00 Docusate Sodium (Colace) 100 mg BID PO Last administered on 08/17/21at 10:11; Start 08/11/21 at 09:00 Acetaminophen/ Hydrocodone Bitart (Lortab 5/325) 1 tab PRN Q6HRS PRN PO MODERATE PAIN Last administered on 08/17/21at 10:20; Start 08/11/21 at 08:00 Metformin HCl (Glucophage) 500 mg BIDWMEALS PO Last administered on 08/17/21at 10:08; Start 08/11/21 at 08:30 Montelukast Sodium (Singulair) 10 mg HS PO Last administered on 08/16/21at 20:47; Start 08/11/21 at 21:00 Pantoprazole Sodium (Protonix) 40 mg DAILYAC PO Last administered on 08/17/21at 10:11; Start 08/11/21 at 08:30 Polyethylene Glycol (miraLAX PACKET) 17 gm DAILY PO Last administered on 07/30 10:09; Start 08/11/21 at 09:00 Tamsulosin HCl (Flomax) 0.4 mg DAILY PO Last administered on 08/17/21at 10:12; Start 08/11/21 at 09:00 Non-Formulary Medication (Budesonide/ Formoterol Fumarate (Symbicort 160-4.5 Mcg Inhaler)) 2 puff BID IH ; Start 08/11/21 at 09:00; Status UNV Glycerin/ Hypromellose/ Polyethylene (Artificial Tears) 1 drop PRN QID PRN OU DRY EYE; Start 08/11/21 at 08:15 Carvedilol (Coreg) 25 mg BIDWMEALS PO Last administered on 08/17/21at 10:10; Start 08/11/21 at 08:30 Cyanocobalamin (Vitamin B-12) 1,000 mcg DAILY PO Last administered on 08/17/21at 10:10; Start 08/11/21 at 09:00 Diclofenac Sodium (Voltaren) 1 jodie TID PRN PRN TP PAIN; Start 08/11/21 at 08:15 Fluticasone Propionate (Flonase) 2 spray DAILY NS Last administered on 08/17/21at 09:00; Start 08/11/21 at 09:00 Non-Formulary Medication (Lutein/ Zeaxanthin (Lutein-Zeaxanthin 25-5 Mg Sfgl)) 1 each BID PO ; Start 08/11/21 at 09:00; Status UNV Amlodipine Besylate (Norvasc) 5 mg DAILY PO Last administered on 08/17/21at 10:11; Start 08/11/21 at 09:00 Rivaroxaban (Xarelto) 20 mg DAILYWSUP PO ; Start 08/11/21 at 17:00; Stop 08/11/21 at 08:28; Status DC Non-Formulary Medication (Silodosin (Rapaflo)) 1 cap DAILY PO ; Start 08/11/21 at 09:00; Status UNV Spironolactone (Aldactone) 50 mg DAILY PO Last administered on 08/17/21at 10:12; Start 08/11/21 at 09:00 Venlafaxine HCl (Effexor Xr) 75 mg DAILY PO Last administered on 08/17/21at 10:11; Start 08/11/21 at 09:00 Budesonide (Pulmicort) 0.5 mg RTBID NEB Last administered on 08/17/21at 07:37; Start 08/11/21 at 20:00 Albuterol Sulfate (Ventolin Neb Soln) 2.5 mg RTQID NEB Last administered on 1 at 11:39; Start 08/11/21 at 12:00 Acetaminophen/ Hydrocodone Bitart (Lortab ) 1 tab PRN Q6HRS PRN PO SEVERE PAIN Last administered on 08/13/21at 08:56; Start 08/11/21 at 08:30; Stop 08/13/21 at 13:01; Status DC Albuterol Sulfate (Ventolin Neb Soln) 2.5 mg PRN Q4HRS PRN NEB SHORTNESS OF BREATH; Start 08/11/21 at 10:45 Cefazolin Sodium/ Dextrose 50 ml @ 100 mls/hr 1X PREOP PRN IV PRIOR TO PROCEDURE Last administered on 08/12/21at 12:12; Start 08/12/21 at 06:00; Stop 08/12/21 at 18:00; Status DC Fentanyl Citrate (Fentanyl 2ml Vial) 25 mcg PRN Q5MIN PRN IVP MILD PAIN 1-3; Start 08/12/21 at 06:00; Stop 08/13/21 at 05:59; Status DC Fentanyl Citrate (Fentanyl 2ml Vial) 50 mcg PRN Q5MIN PRN IVP MODERATE PAIN 4- 6; Start 08/12/21 at 06:00; Stop 08/13/21 at 05:59; Status DC Morphine Sulfate (Morphine Sulfate) 1 mg PRN Q10MIN PRN IVP SEVERE PAIN 7-10 Last administered on 08/12/21at 16:42; Start 08/12/21 at 06:00; Stop 08/13/21 at 05:59; Status DC Ringer's Solution 1,000 ml @ 30 mls/hr Q24H IV Last administered on 08/12/21at 06:20; Start 08/12/21 at 06:00; Stop 08/12/21 at 17:59; Status DC Hydromorphone HCl (Dilaudid) 0.5 mg PRN Q10MIN PRN IVP SEVERE PAIN 7-10, 2nd CHOICE; Start 08/12/21 at 06:00; Stop 08/13/21 at 05:59; Status DC Prochlorperazine Edisylate (Compazine) 5 mg PACU PRN PRN IVP NAUSEA, MRX1; Start 08/12/21 at 06:00; Stop 08/13/21 at 05:59; Status DC Cefazolin Sodium 1 gm/Sodium Chloride 500 ml @ 500 mls/hr 1X ONCE IRR ; Start 08/12/21 at 06:00; Stop 08/12/21 at 06:59; Status Cancel Cefazolin Sodium 1 gm/Sodium Chloride 1,000 ml @ 1,000 mls/hr 1X ONCE IRR Last administered on 08/12/21at 12:41; Start 08/12/21 at 06:00; Stop 08/12/21 at 06:59; Status DC Gelatin (Gelfoam Size 100) 1 each STK-MED ONCE .ROUTE Last administered on 08/12/21at 12:41; Start 08/12/21 at 07:20; Stop 08/12/21 at 07:21; Status DC Bupivacaine HCl/ Epinephrine Bitart (Sensorcain-Epi 0.5%-1:129499 Mpf) 30 ml STK-MED ONCE .ROUTE Last administered on 08/12/21at 12:41; Start 08/12/21 at 07:20; Stop 08/12/21 at 07:21; Status DC Ketorolac Tromethamine (Toradol Im) 60 mg STK-MED ONCE .ROUTE Last administered on 08/12/21at 12:41; Start 08/12/21 at 07:20; Stop 08/12/21 at 07:21; Status DC Thrombin 20,000 unit STK-MED ONCE TP Last administered on 08/12/21at 12:41; Start 08/12/21 at 07:20; Stop 08/12/21 at 07:21; Status DC Morphine Sulfate (Morphine Sulfate) 2 mg STK-MED ONCE .ROUTE ; Start 08/12/21 at 08:17; Stop 08/12/21 at 08:17; Status DC Morphine Sulfate (Morphine Sulfate) 2 mg 1X ONCE IVP Last administered on 08/12/21at 08:23; Start 08/12/21 at 08:30; Stop 08/12/21 at 08:31; Status DC Hydromorphone HCl (Dilaudid) 2 mg STK-MED ONCE .ROUTE ; Start 08/12/21 at 09:01; Stop 08/12/21 at 09:02; Status DC Hydromorphone HCl (Dilaudid) 2 mg 1X ONCE IM ; Start 08/12/21 at 09:30; Stop 08/12/21 at 09:31; Status DC Propofol (Diprivan) 200 mg STK-MED ONCE IV ; Start 08/12/21 at 09:48; Stop 08/12/21 at 09:48; Status DC Propofol 50 ml @ As Directed STK-MED ONCE IV ; Start 08/12/21 at 09:48; Stop 08/12/21 at 09:48; Status DC Hydromorphone HCl (Dilaudid) 2 mg 1X ONCE IVP Last administered on 08/12/21at 09:57; Start 08/12/21 at 10:00; Stop 08/12/21 at 10:01; Status DC Phenylephrine HCl (Mark-Synephrine Inj) 10 mg STK-MED ONCE .ROUTE ; Start 08/12/21 at 09:55; Stop 08/12/21 at 09:55; Status DC Dexamethasone Sodium Phosphate (Decadron) 4 mg STK-MED ONCE .ROUTE ; Start 08/12/21 at 10:00; Stop 08/12/21 at 10:01; Status DC Glycopyrrolate (Robinul) 1 mg STK-MED ONCE .ROUTE ; Start 08/12/21 at 10:00; Stop 08/12/21 at 10:01; Status DC Lidocaine HCl (Lidocaine Pf 2% Vial) 5 ml STK-MED ONCE .ROUTE ; Start 08/12/21 at 10:02; Stop 08/12/21 at 10:03; Status DC Rocuronium [place] (Zemuron) 50 mg STK-MED ONCE .ROUTE ; Start 08/12/21 at 10:02; Stop 08/12/21 at 10:03; Status DC Remifentanil HCl (Ultiva) 2 mg STK-MED ONCE IV ; Start 08/12/21 at 11:14; Stop 08/12/21 at 11:15; Status DC Albuterol/ Ipratropium (Duoneb) 3 ml 1X ONCE NEB Last administered on 08/12/21at 11:20; Start 08/12/21 at 11:15; Stop 08/12/21 at 11:17; Status DC Albuterol/ Ipratropium (Duoneb) 3 ml STK-MED ONCE .ROUTE ; Start 08/12/21 at 11:17; Stop 08/12/21 at 11:18; Status DC Ephedrine Sulfate (ePHEDrine PF IN SALINE SYRINGE) 50 mg STK-MED ONCE IV ; Start 08/12/21 at 12:21; Stop 08/12/21 at 12:21; Status DC Propofol 50 ml @ As Directed STK-MED ONCE IV ; Start 08/12/21 at 12:46; Stop 08/12/21 at 12:47; Status DC Remifentanil HCl (Ultiva) 1 mg STK-MED ONCE IV ; Start 08/12/21 at 13:43; Stop 08/12/21 at 13:44; Status DC Phenylephrine HCl (Mark-Synephrine Inj) 10 mg STK-MED ONCE .ROUTE ; Start 08/12/21 at 14:27; Stop 08/12/21 at 14:28; Status DC Sevoflurane (Ultane) 60 ml STK-MED ONCE IH ; Start 08/12/21 at 14:35; Stop 08/12/21 at 14:35; Status DC Neostigmine [place] (Neostigmine Methylsulfate) 5 mg STK-MED ONCE .ROUTE ; Start 08/12/21 at 14:36; Stop 08/12/21 at 14:37; Status DC Ondansetron HCl (Zofran) 4 mg STK-MED ONCE .ROUTE ; Start 08/12/21 at 14:49; Stop 08/12/21 at 14:49; Status DC Remifentanil HCl (Ultiva) 1 mg STK-MED ONCE IV ; Start 08/12/21 at 15:06; Stop 08/12/21 at 15:07; Status DC Fentanyl Citrate (Fentanyl 2ml Vial) 50 mcg PRN Q2HR PRN IVP PAIN Last administered on 08/16/21at 20:50; Start 08/12/21 at 16:00 Acetaminophen (Tylenol) 650 mg PRN Q6HRS PRN PO MILD PAIN / TEMP > 100.3'F; Start 08/12/21 at 16:00 Al Hydroxide/Mg Hydroxide (Mylanta Plus Xs) 30 ml PRN Q3HRS PRN PO HEARTBURN / GAS; Start 08/12/21 at 16:00 Calcium Carbonate/ Glycine (Tums) 500 mg PRN Q3HRS PRN PO INDIGESTION; Start 08/12/21 at 16:00 Diphenhydramine HCl (Benadryl) 25 mg PRN Q6HRS PRN PO ITCHING Last administered on 08/14/21at 01:55; Start 08/12/21 at 16:00 Naloxone HCl (Narcan) 0.1 mg PRN Q2MIN PRN IV SEE COMMENTS; Start 08/12/21 at 16:00 Sodium Chloride (Normal Saline Flush) 3 ml QSHIFT PRN IV AFTER MEDS AND BLOOD DRAWS; Start 08/12/21 at 16:00 Docusate Sodium (Colace) 100 mg BID PO ; Start 08/12/21 at 21:00; Stop 08/13/21 at 08:38; Status DC Magnesium Hydroxide (Milk Of Magnesia) 2,400 mg PRN Q12HR PRN PO CONSTIPATION; Start 08/12/21 at 16:00 Morphine Sulfate (Morphine Sulfate) 2 mg STK-MED ONCE .ROUTE ; Start 08/12/21 at 16:50; Stop 08/12/21 at 16:50; Status DC Acetaminophen/ Hydrocodone Bitart (Lortab 10/325) 1 tab PRN Q4HRS PRN PO SEVERE PAIN Last administered on 08/17/21at 02:31; Start 08/13/21 at 13:00 Cyclobenzaprine HCl (Flexeril) 10 mg PRN Q6HRS PRN PO MUSCLE SPASMS Last administered on 08/16/21at 17:32; Start 08/13/21 at 21:00 Cyclobenzaprine HCl (Flexeril) 10 mg PRN Q6HRS PRN PO MUSCLE SPASMS; Start 08/13/21 at 21:00; Status Cancel Hydralazine HCl (Apresoline Inj) 10 mg PRN Q4HRS PRN IVP ELEVATED BP, SEE COMMENTS Last administered on 08/17/21at 02:32; Start 08/14/21 at 03:30 Gabapentin (Neurontin) 300 mg 1X ONCE PO Last administered on 08/14/21at 10:52; Start 08/14/21 at 10:00; Stop 08/14/21 at 10:13; Status DC Gabapentin (Neurontin) 300 mg BID PO Last administered on 08/17/21at 10:08; Start 08/14/21 at 21:00 Methylprednisolone (Medrol) 8 mg BID PO Last administered on 08/14/21at 21:29; Start 08/14/21 at 09:00; Stop 08/14/21 at 21:01; Status DC Methylprednisolone (Medrol) 4 mg BIDPCLD PO Last administered on 08/14/21at 18:38; Start 08/14/21 at 12:30; Stop 08/14/21 at 17:31; Status DC Methylprednisolone (Medrol) 4 mg TIDPC PO Last administered on 08/15/21at 16:19; Start 08/15/21 at 08:30; Stop 08/15/21 at 17:31; Status DC Methylprednisolone (Medrol) 8 mg QHS PO Last administered on 08/15/21at 21:19; Start 08/15/21 at 21:00; Stop 08/15/21 at 21:01; Status DC Methylprednisolone (Medrol) 4 mg QIDAFTMEAL PO Last administered on 08/16/21at 20:47; Start 08/16/21 at 09:00; Stop 08/16/21 at 21:01; Status DC Methylprednisolone (Medrol) 4 mg TID PO Last administered on 08/17/21at 10:10; Start 08/17/21 at 09:00; Stop 08/17/21 at 21:01 Methylprednisolone (Medrol) 4 mg BID PO ; Start 08/18/21 at 09:00; Stop 08/18/21 at 21:01 Methylprednisolone (Medrol) 4 mg DAILY PO ; Start 08/19/21 at 09:00; Stop 08/19/21 at 09:01 Rivaroxaban (Xarelto) 20 mg DAILYWSUP PO Last administered on 08/16/21at 17:29; Start 08/14/21 at 17:00 Info (Anti-Coagulation Monitoring By Pharmacy) 1 each PRN DAILY PRN MC PER PROTOCOL Last administered on 08/15/21at 14:03; Start 08/15/21 at 12:45 Active Scripts Active Reported Proair Hfa Inhaler (Albuterol Sulfate) 8.5 Gm Hfa.aer.ad 1 Puff INH PRN Q6HRS PRN Symbicort 160-4.5 Mcg Inhaler (Budesonide/Formoterol Fumarate) 10.2 Gm Hfa.aer.ad 2 Puff IH BID Venlafaxine Hcl Er (Venlafaxine Hcl) 75 Mg Cap.er.24h 1 Cap PO DAILY Flomax (Tamsulosin Hcl) 0.4 Mg Cap.er.24h 1 Cap PO DAILY Nicardipine Hcl 30 Mg Capsule 30 Mg PO TID Lutein-Zeaxanthin 25-5 Mg Sfgl (Lutein/Zeaxanthin) 1 Each Capsule 1 Each PO BID Montelukast Sodium Tablet (Montelukast Sodium) 10 Mg Tablet 10 Mg PO HS Metformin Hcl 500 Mg Tablet 500 Mg PO BIDWMEALS Hydrocodone-Apap 5-325 (Hydrocodone Bit/Acetaminophen) 1 Tab Tablet 1 Tab PO PRN Q6HRS PRN Colace (Docusate Sodium) 100 Mg Capsule 1 Cap PO BID 30 Days Diclo Gel (Diclofenac Sodium) 1 Each Kit 1 Each TP TID PRN PRN B-12 (Cyanocobalamin (Vitamin B-12)) 1,000 Mcg Tablet.er 1 Tab PO DAILY 30 Days Vitamin D3 (Vitamin D) 25 Mcg Tablet 25 Mcg PO BID 1,000 UNITS = 25 MCG Zyrtec (Cetirizine Hcl) 10 Mg Tablet 1 Tab PO DAILY Thera Tears (Carboxymethylcellulose Sodium) 15 Ml Drops 1 Drop EACHEYE QID Miralax (Polyethylene Glycol 3350) 17 Gm Powd.pack 1 Packet PO DAILY Aspirin 81 Mg Tab.chew 1 Tab PO DAILY Symbicort 160-4.5 Mcg Inhaler (Budesonide/Formoterol Fumarate) 10.2 Gm Hfa.aer.ad 2 Puff IH BID Pantoprazole Sodium 40 Mg Tablet.dr 40 Mg PO Rapaflo (Silodosin) 8 Mg Capsule 1 Cap PO DAILY Atorvastatin Calcium 40 Mg Tablet 1 Tab PO DAILY Spironolactone 50 Mg Tablet 1 Tab PO DAILY Xarelto (Rivaroxaban) 20 Mg Tablet 20 Mg PO DAILY Carvedilol 25 Mg Tablet 25 Mg PO BIDWMEALS Flonase Allergy Relief (Fluticasone Propionate) 9.9 Ml Orient.susp 2 Sprays NS DAILY Albuterol Sulfate Neb Soln (Albuterol Sulfate) 2.5 Mg/3 Ml Vial.neb 1 Vial NEB PRN Q4HRS Vitals/I & O Vital Sign - Last 24 Hours 08/16/21 08/16/21 08/16/21 08/16/21 13:12 15:00 16:02 17:28 Temp 97.4 97.4 Pulse 75 Resp 18 B/P (MAP) 135/68 (90) Pulse Ox 96 93 96 96 O2 Delivery Room Air Room Air Room Air Room Air O2 Flow Rate 2.0 2.0 08/16/21 08/16/21 08/16/21 08/16/21 17:29 19:00 19:49 20:15 Temp 97.8 97.8 Pulse 75 77 Resp 20 B/P (MAP) 135/68 155/76 (102) Pulse Ox 90 92 O2 Delivery Room Air Room Air Room Air 08/16/21 08/16/21 08/16/21 08/17/21 20:50 21:20 23:22 02:31 Temp 97.9 97.9 Pulse 59 Resp 20 20 16 20 B/P (MAP) 171/86 (114) Pulse Ox 90 O2 Delivery Room Air Room Air Room Air 08/17/21 08/17/21 08/17/21 08/17/21 02:32 02:32 03:01 07:00 Temp 97.9 97.6 97.9 97.6 Pulse 48 48 70 Resp 20 20 17 B/P (MAP) 184/103 184/103 (130) 191/89 (123) Pulse Ox 95 94 O2 Delivery Room Air Room Air Room Air 08/17/21 08/17/21 08/17/21 08/17/21 07:38 08:00 10:10 10:11 Pulse 70 70 B/P (MAP) 191/89 191/89 Pulse Ox 94 O2 Delivery Room Air Room Air O2 Flow Rate 2.0 08/17/21 08/17/21 11:00 11:39 Temp 97.4 97.4 Pulse 78 Resp 18 B/P (MAP) 196/97 (130) Pulse Ox 98 98 O2 Delivery Room Air Room Air Intake and Output 08/16/21 08/16/21 08/17/21 15:00 23:00 07:00 Intake Total 300 ml 0 ml Output Total 500 ml Balance -200 ml 0 ml Justifications for Admission Other Justification DESIRAE IRVIN MD Aug 17, 2021 12:51
[2021-08-17] MEDS ORDERED: GABA300C18 PO (12:58)
--- NOTE | 2021-08-17 13:01 | PDOC ---
[facility] PROGRESS NOTE Date of Service DOS: DATE: 08/17/21 TIME: 12:55 Chief Complaint Chief Complaint Intractable back pain, unable to ambulate, consult Pain clinic and Neurosurg who had been following, Prior CVA, minimal right residual, mostly sensory, has been taking Xarelto to prevent further CVA, he has been having this on hold DM2 obese, htn depression, anxiety nerve pain History of Present Illness History of Present Illness 08/17/21 No acute events overnight. Patient seen and examined bedside. Pain is well controlled. Pending SNF placement possible [place]. Patient's chart, labs, images were reviewed and discussed with RN 08/16/21 No acute events overnight. Patient seen and examined bedside working with physical therapy. Dressings are clean dry and intact. Patient continues to complain of which appears to be like neuropraxia. Gabapentin started tolerated well. Plan for SNF tomorrow. Pending Covid test. Patient's chart, labs, images were reviewed and discussed with RN In addition to my E/M visit, advance care planning done with A total time of 20 minutes was spent from 9:00 to 920 face to face in discussion regarding the patient's goals of care, CODE STATUS. new electric shock pain to right side to right groin. He motions that he gets a shock-like pain for a few seconds, and he traces the L1 dermatome on the right side started Gabapentin - and he has very good imrpovement in pain, feels well, mental status has not changed no lethargy, no confusion Neurosurg following, do well surgery done yesterday, pain better, feels sore today s, s/p surg decompression and laminectomy OOB to chair will advance diet, start PT and OT, neurosurg following Vitals/I&O Vitals/I&O: Vital Signs Date Time Temp Pulse Resp B/P (MAP) Pulse Ox O2 Delivery O2 Flow Rate FiO2 08/17/21 11:39 98 Room Air 08/17/21 11:00 97.4 78 18 196/97 (130) 97.4 08/17/21 08:00 2.0 I & O 08/16/21 08/16/21 08/17/21 15:00 23:00 07:00 Intake Total 300 ml 0 ml Output Total 500 ml Balance -200 ml 0 ml Physical Exam General: Alert, Oriented X3, Cooperative Heart: No murmurs, Other Lungs: Clear Extremities: No clubbing, No edema, Normal pulses Skin: Other (Dressing C,D,I, Flat) Assessment and Plan Assessmemt and Plan Problems Medical Problems: (1) Intractable low back pain Status: Acute (2) Sciatic leg pain Status: Acute Comment Review of Relevant I have reviewed the following items beau (where applicable) has been applied. Medications: Current Medications Medications (Trade) Dose Ordered Sig/Yariel Route PRN Reason Start Time Stop Time Status Last Admin Dose Admin Methylprednisolone (Medrol) 4 mg TID PO 08/17/21 09:00 08/17/21 21:01 08/17/21 10:10 Justifications for Admission Other Justification ROYA PALM MD Aug 17, 2021 13:01
[2021-08-17 15:00] VITALS: BP 189/90
--- NOTE | 2021-08-17 17:06 | PATHOLOGY ---
[facility] Accession Number: [id number] . 01 Material submitted: . vertebral column - LUMBAR DISC AND DECOMPRESSION . 01 Clinical history: . LUMBAR STENOSIS AND HERNIATED DISC LUMBAR HEMILAMINECTOMY L4-5, L5-S1 WITH DISCECTOMY . 02 Diagnosis: Segments of fibrocartilaginous and skeletal muscle tissue and bone, lumbar disc and decompression: - Degenerative changes of fibrocartilaginous tissue. (JPM:pit; 08/17/2021) QTP 08/17/2021 1400 Local . 02 Comment: There is no evidence of an acute inflammatory process or malignancy. (JPM:pit; 08/17/2021) . 02 Electronically signed: . Yovany Silva MD, Pathologist NPI- [id number] . 01 Gross description: . The specimen is received in formalin, labeled "David Buchanan, lumbar disc and decompression". The site is further designated in the operative procedure as, "L4-L5, L5-S1". Received are multiple segments of pale sims fibrous tissue admixed with gritty fragments of bone measuring 5.2 x 4.3 x 0.6 cm in aggregate dimensions. The specimen is submitted representatively in cassette A1, following light decalcification. (CAA; 08/16/2021) QAC/QAC 08/16/2021 0942 Local . 02 Pathologist provided ICD-10: M99.53, M51.26 . 02 CPT . 873065, 737570 Specimen Comment: A courtesy copy of this report has been sent to [phone], [phone] Specimen Comment: [id number] Specimen Comment: Report sent to DR. IRVIN / DR SOARES Specimen Comment: Report sent to Specimen Comment: A duplicate report has been generated due to demographic updates. Performed at: 01 [facility] [address] [facility] [address], [place] [id number] MD Gregorio Mcdonnell MD Phone: [phone] Performed at: 02 [facility] [address] [place], [place] [id number] MD Yovany Silva MD Phone: [phone]
[2021-08-17] MEDS: RIVAROXABAN 10 MG TABLET. PO SCH (18:19)
[2021-08-17 19:00] VITALS: BP 192/91
[2021-08-17] MEDS: MONTELUKAST SODIUM 10 MG TABLET. PO SCH (20:11)
[2021-08-17] MEDS: ATORVASTATIN CALCIUM 40 MG TABLET. PO SCH (20:11)
[2021-08-17] MEDS: CYCLOBENZAPRINE 10 MG TABLET. PO PRN (21:38)
[2021-08-17 23:00] VITALS: BP 192/95
[2021-08-18 03:00] VITALS: BP 196/94
[2021-08-18 07:00] VITALS: BP 206/119
[2021-08-18] MEDS: BUDESONIDE 0.5 MG/2 ML NEBU. NEB SCH (07:23)
[2021-08-18] MEDS: ALBUTEROL SULFATE 2.5 MG/3 ML NEBU. NEB SCH ×2 (07:23→11:16)
[2021-08-18] MEDS: CYCLOBENZAPRINE 10 MG TABLET. PO PRN (08:42)
[2021-08-18] MEDS: HYDROcodone/APAP 10/325 1 TAB TABLET PO PRN ×2 (08:43→15:16)
[2021-08-18] MEDS: POLYETHYLENE GLYCOL 3350 17 GM PACKET. PO SCH (08:43)
[2021-08-18] MEDS: PANTOPRAZOLE 40 MG TABLET.DR. PO SCH (08:44)
[2021-08-18] MEDS: ASPIRIN CHEWABLE 81 MG TABLET. PO SCH (08:44)
[2021-08-18] MEDS: CETIRIZINE HCL 10 MG TABLET. PO SCH (08:44)
[2021-08-18] MEDS: CHOLECALCIFEROL (VITAMIN D3) 1,000 UNIT TABLET PO SCH (08:44)
[2021-08-18] MEDS: SPIRONOLACTONE 25 MG TABLET PO SCH (08:44)
[2021-08-18] MEDS: CYANOCOBALAMIN (VITAMIN B-12) 1,000 MCG TABLET. PO SCH (08:44)
[2021-08-18] MEDS: CARVEDILOL 12.5 MG TABLET. PO SCH (08:45)
[2021-08-18] MEDS: VENLAFAXINE XR 37.5 MG CAP.ER.24H. PO SCH (08:45)
[2021-08-18] MEDS: TAMSULOSIN 0.4 MG CAP.ER.24H. PO SCH (08:45)
[2021-08-18] MEDS: metFORMIN 500 MG TABLET PO SCH (08:46)
[2021-08-18] MEDS: GABAPENTIN 300 MG CAPSULE. PO SCH (08:46)
[2021-08-18] MEDS: DOCUSATE SODIUM 100 MG CAPSULE. PO SCH (08:46)
[2021-08-18] MEDS: FLUTICASONE 50MCG/NASAL SPRAY 16GM BOTTLE. NS SCH (08:53)
[2021-08-18] MEDS ORDERED: methylPREDNISolone 4 MG TABLET. PO SCH (09:00)
[2021-08-18] MEDS: hydrALAZINE 20 MG/ML VIAL. IVP PRN (09:04)
[2021-08-18 10:24] VITALS: BP 156/89
[2021-08-18] MEDS ORDERED: GABA300C18 PO (11:24)
--- NOTE | 2021-08-18 11:25 | SNU/HH DC ---
DISCHARGE ORDERS DISCHARGE INFORMATION: DISCHARGE DATE: Aug 18, 2021 FINAL DIAGNOSIS Problems Medical Problems: (1) Intractable low back pain Status: Acute (2) Sciatic leg pain Status: Acute CONDITION ON DISCHARGE: Stable CODE STATUS: Code Status: Full SHELTER: SNF STAY <30 DAYS: Yes POST DISCHARGE ORDERS: ACTIVITY ORDERS: Activity as tolerated CHECKS AFTER DISCHARGE: CHECKS AFTER DISCHARGE: Check blood press - daily, Check your Temp as needed, Weigh Yourself Daily FOLLOW-UP: PHYSICIAN FOLLOW-UP: PCP within 2 weeks of discharge ADDITIONAL FOLLOW-UP: Neurosurgery as needed or as scheduled LAB ORDERS FOR FOLLOW-UP: CBC, CMP TREATMENT/EQUIPMENT ORDERS: Physical Therapy For: Evalulation/Treatment Occupational Therapy For: Evaluation/Treatment DISCHARGE MEDICATIONS: Home Meds Active Scripts Gabapentin (GABAPENTIN ) 300 Mg Capsule, 300 MG PO BID for NEUROGENIC PAIN for 30 Days, #60 CAP 2 Refills Prov:ROYA PALM MD 08/18/21 Reported Medications Albuterol Sulfate (PROAIR HFA INHALER) 8.5 Gm Hfa.aer.ad, 1 PUFF INH PRN Q6HRS PRN for SHORTNESS OF BREATH, EACH 0 Refills 08/11/21 Budesonide/Formoterol Fumarate (SYMBICORT 160-4.5 MCG INHALER) 10.2 Gm Hfa.aer.ad, 2 PUFF IH BID for SOB, #1 INHALER 3 Refills 08/11/21 Venlafaxine Hcl (VENLAFAXINE HCL ER) 75 Mg Cap.er.24h, 1 CAP PO DAILY for Moods, #90 CAP 3 Refills 08/11/21 Tamsulosin Hcl (FLOMAX) 0.4 Mg Cap.er.24h, 1 CAP PO DAILY for BPH, #30 CAP 11 Refills 08/11/21 Nicardipine Hcl (NICARDIPINE HCL) 30 Mg Capsule, 30 MG PO TID for na, CAP 08/11/21 Lutein/Zeaxanthin (LUTEIN-ZEAXANTHIN 25-5 MG SFGL) 1 Each Capsule, 1 EACH PO BID for macular degeneration, CAP 08/11/21 Montelukast Sodium (MONTELUKAST SODIUM TABLET ) 10 Mg Tablet, 10 MG PO HS for FOR ASTHMA, TAB 0 Refills 08/11/21 Metformin Hcl (METFORMIN HCL) 500 Mg Tablet, 500 MG PO BIDWMEALS for ANTI- DIABETIC, TAB 0 Refills 08/11/21 Hydrocodone Bit/Acetaminophen (HYDROCODONE-APAP 5-325 ) 1 Tab Tablet, 1 TAB PO PRN Q6HRS PRN for PAIN, TAB 0 Refills 08/11/21 Docusate Sodium (COLACE) 100 Mg Capsule, 1 CAP PO BID for constipation for 30 Days, #60 CAP 0 Refills 08/11/21 Diclofenac Sodium (Diclo Gel) 1 Each Kit, 1 EACH TP TID PRN PRN for PAIN, EACH 08/11/21 Cyanocobalamin (Vitamin B-12) (B-12) 1,000 Mcg Tablet.er, 1 TAB PO DAILY for supplement for 30 Days, #30 TAB 0 Refills 08/11/21 Cholecalciferol (Vitamin D3) (Vitamin D3 ) 25 Mcg Tablet, 25 MCG PO BID for SUPPLEMENT, TAB 1,000 UNITS = 25 MCG 08/11/21 Cetirizine Hcl (ZYRTEC) 10 Mg Tablet, 1 TAB PO DAILY for allergies, #30 TAB 2 Refills 08/11/21 Carboxymethylcellulose Sodium (THERA TEARS) 15 Ml Drops, 1 DROP EACHEYE QID for eye health, #30 ML 0 Refills 08/11/21 Polyethylene Glycol 3350 (MIRALAX) 17 Gm Powd.pack, 1 PACKET PO DAILY for constipation, #30 PACKET 3 Refills 07/19/19 Aspirin (ASPIRIN) 81 Mg Tab.chew, 1 TAB PO DAILY for heart, #30 TAB 3 Refills 07/19/19 Budesonide/Formoterol Fumarate (SYMBICORT 160-4.5 MCG INHALER) 10.2 Gm Hfa.aer .ad, 2 PUFF IH BID for sob, #10.6 GM 3 Refills 07/19/19 Pantoprazole Sodium (Pantoprazole Sodium) 40 Mg Tablet.dr, 40 MG PO, TAB.SR 07/09/19 Silodosin (RAPAFLO) 8 Mg Capsule, 1 CAP PO DAILY, #30 CAP 5 Refills 07/09/19 Atorvastatin Calcium (ATORVASTATIN CALCIUM) 40 Mg Tablet, 1 TAB PO DAILY, #30 TAB 5 Refills 07/09/19 Spironolactone (SPIRONOLACTONE) 50 Mg Tablet, 1 TAB PO DAILY, #30 TAB 5 Refills 07/09/19 Rivaroxaban (XARELTO) 20 Mg Tablet, 20 MG PO DAILY, TAB 07/09/19 Carvedilol (CARVEDILOL) 25 Mg Tablet, 25 MG PO BIDWMEALS for CARDIAC, TAB 07/09/19 Fluticasone Propionate (Flonase Allergy Relief) 9.9 Ml [place].susp, 2 SPRAYS NS DAILY, BOTTLE 07/09/19 Albuterol Sulfate (ALBUTEROL SULFATE NEB SOLN) 2.5 Mg/3 Ml Vial.neb, 1 VIAL NEB PRN Q4HRS, #50 VIAL 07/09/19 ROYA PALM MD Aug 18, 2021 11:25
[2021-08-18 15:00] VITALS: BP 151/86
--- NOTE | 2021-08-18 15:36 | NUR ---
Patient discharged to [facility] today via wheelchair, accompanied by private transporter. Patient is stable, IV removed, incision dressing changed, and discharge yellow packet given to transporter. Nursing report was call to Addy and the nurse taking report was Nicole HARDEN. Followup and discharge instruction was relayed to the nurse taking report.
[2021-08-19] MEDS ORDERED: methylPREDNISolone 4 MG TABLET. PO SCH (09:00)
== END 2021-08-18 15:51 | DRG 520 ==
LOC: ER 19:32 → 4 NORTH 23:04 → OBSVTOIN 08-11 14:32
PROVIDERS: ADMIT Internal Medicine; ATTEND Internal Medicine
PROC: 01NB0ZZ Release Lumbar Nerve, Open Approach (ICD-10-PCS; principal; 2021-08-11)
PROC: 0SB20ZZ Excision of Lumbar Vertebral Disc, Open Approach (ICD-10-PCS; 2021-08-11)
PROC: 01NR0ZZ Release Sacral Nerve, Open Approach (ICD-10-PCS; 2021-08-11)
PROC: 4A11X4G Monitoring of Peripheral Nervous Electrical Activity, Intraoperative, External Approach (ICD-10-PCS; 2021-08-11)
DX: M51.16 Intervertebral disc disorders with radiculopathy, lumbar region (principal); E11.9 Type 2 diabetes mellitus without complications; E66.9 Obesity, unspecified; E78.00 Pure hypercholesterolemia, unspecified; F32.A Depression, unspecified; F41.9 Anxiety disorder, unspecified; G89.29 Other chronic pain; I10 Essential (primary) hypertension; J45.909 Unspecified asthma, uncomplicated; M19.90 Unspecified osteoarthritis, unspecified site; M48.061 Spinal stenosis, lumbar region without neurogenic claudication; Z86.73 Personal history of transient ischemic attack (TIA), and cerebral infarction without residual deficits; Z87.442 Personal history of urinary calculi; Z87.891 Personal history of nicotine dependence; Z88.8 Allergy status to other drugs, medicaments and biological substances; Z91.040 Latex allergy status; Z91.013 Allergy to seafood; Z68.35 Body mass index [BMI] 35.0-35.9, adult; Z20.822 Contact with and (suspected) exposure to COVID-19
CPT/HCPCS: 36415; 76000; 80053; 82962; 85025; 88304; 88311; 94640; 94760; 96374; 96375; A4213; A4315; A4344; A4364; A4657; A4930; A6254; A6258; G0378; G0379; J0360; J0690; J1100; J1170; J1885; J2270; J2370; J2405; J2704; J2710; J2930; J3010; J3490; J7030; J7120; J7509; U0003; U0005; 97110-GP; 97116-GP; 97530-GP; 97535-GO; 99285-25; J7613; J7626; Q0163

== ENCOUNTER → 2021-11-26 | Outpatient (CLI) | payer MEDICARE, BC ==
[~2021-11-26] MED LIST changes: +ALBU2.5V8 INH; +CARB15DR65 EACHEYE; +CETI10TA74 PO; +CHOL10004 PO; +CYAN100031 PO; +DICL1KIT14 TP; +DOCU-109 PO; +GABA300C18 PO; +HYDR-2761 PO; +LUTE1CAP PO; +METF500T16 PO; +MONT10TA49 PO; +TAMS0.4C97 PO; +VENL75CA6 PO
--- NOTE | 2021-11-26 12:29 | KCIC ---
EXAM: Lumbar spine, 4 views. HISTORY: Pain. COMPARISON: None. FINDINGS: Frontal, lateral, flexion and extension views of the lumbar spine are obtained. There are 5 nonrib-bearing lumbar segments. There is 3 mm grade 1 anterolisthesis of L4 on L5 which does not amaila nge between flexion and extension. There is degenerative endplate remodeling with disc space narrowin g and osteophytosis primarily at L3-L4 and L4-L5, and to a lesser extent, L5-S1. There is advanced fa cet arthropathy at the lower lumbar levels. IMPRESSION: 1. Severe degenerative change primarily at L3-L5. 2. No acute osseous finding or abnormal motion between flexion and extension. Electronically signed by: Chelsea Beck MD (11/26/2021 12:26 PM) [id number]
== END ==
LOC: KCIC 11:29
PROVIDERS: ATTEND Neurological Surgery
DX: M47.816 Spondylosis without myelopathy or radiculopathy, lumbar region (principal)
CPT/HCPCS: 72110